=== PATIENT | male | born 1950 | race Caucasian/White ===

== ENCOUNTER 2020-01-23 23:37 | Inpatient (IN) | payer MEDICARE ==
[2020-01-24 00:19] LABS: INR-International Normal Ratio 1.2; Prothrombin Time 15.4 sec (12.0-14.7)
[2020-01-24 00:22] LABS: Hemoglobin 5.4 g/dL (14.0-18.0); Mean Corpuscular HGB CONC 31.1 g/dL (32.0-36.0); Mean Corpuscular Hemoglobin 30.4 pg (27.0-31.0); Mean Corpuscular Volume 97.7 fL (78.0-98.0); Mean Platelet Volume 6.6 fL (7.4-10.4); Platelet Count 506 thou/uL (130-400); RBC Distribution Width 17.3 % (11.5-14.5); Red Blood Cell (RBC) Count 1.76 mill/uL (4.70-6.10)
[2020-01-24 00:34] LABS: ALT (SGPT) 13 U/L (8-55); AST (SGOT) 12 U/L (5-34); Albumin 2.5 g/dL (3.4-4.8); Alkaline Phosphatase 95 U/L (40-110); Anion Gap 18 mmol/L (10-20); Anisocytosis SLIGHT = 6-15 cells (100X) (0-5/hpf); BUN (Urea Nitrogen) 16 mg/dL (8.4-25.7); Band 2 % (5-11); Bilirubin, Total 0.2 mg/dL (0.2-1.2); Calc. Creatinine Clearance 0 mL/min (70-130); Calcium 7.9 mg/dL (7.8-10.44); Carbon Dioxide 15 mmol/L (23-31); Chloride 103 mmol/L (98-107); Eosinophils 1 % (0-10); Estimated GFR-MDRD 69; Globulin 2.5 g/dL (2.4-3.5); Glucose 216 mg/dL (83-110); Lipase 38 U/L (8-78); Lymphocytes 22 % (21-51); MDiff Complete? YES; Macrocytosis SLIGHT = 6-15 cells (100X) (0-5/hpf); Metamyelocyte 1 % (0-0); Monocytes 5 % (0-10); Neutrophil 69 % (42-75); Nucleated RBC 1 % (0); Platelet Morphology Comment Appears Increased; Polychromasia MODERATE = 3-4 cells (100X) (0-2/hpf); Potassium 3.4 mmol/L (3.5-5.1); Sodium 133 mmol/L (136-145); White Blood Cell (WBC) Count 13.3 thou/uL (4.8-10.8)
[2020-01-24] MEDS ORDERED: Pantoprazole 40 MG VIAL ONE (01:32)
[2020-01-24 02:49] VITALS: BMI 29.4
[2020-01-24] MEDS ORDERED: Ondansetron ODT 4 MG TAB PO PRN (03:19)
[2020-01-24] MEDS ORDERED: Ondansetron PF 4 MG/2 ML Vial IVP PRN (03:19)
[2020-01-24] MEDS ORDERED: Sodium Chloride 0.9% (PF) 10 ML VIAL FS PRN (03:27)
--- NOTE | 2020-01-24 03:35 | PDOC.HHP ---
Hospitalist HPI - History of Present Illness gi bleeding History of Present Illness: Case of an 69y/o male with pmxh of htn and hyperlipidemia who comes to hospital due to gi bleeding. patient refers he was on his usual state o health until 2-3 weeks ago when he started to notice some black stools. symptoms kept progressing until today when started to feel lightheaded and generalize weakness for which he came to hospital to be evaluated. here patient had visible melena on PE and a hg of 5 for which hospitaloist was consulted for further evaluation and management. patient denies chest pain, palpitations or diaphoresis does refers some occasional nonradiating epigastric discomfort. Hospitalist ROS - Review of Systems All other systems reviewed; all pertinent +/- noted in HPI/Subj Hospitalist History - Past Medical History Cardiac: reports: Hyperlipidemia - Past Surgical History Past Surgical History: reports: no pertinent history - Family History Family History: reports: hyperlipidemia, hypertension - Social History Tobacco Type: snuff Alcohol: reports: Heavy Drugs: reports: none - Exam General Appearance: awake alert Eye: PERRL, anicteric sclera ENT: normocephalic atraumatic, no oropharyngeal lesions Neck: supple, symmetric, no JVD, no thyromegaly Heart: RRR, no murmur, no gallops, no rubs Respiratory: CTAB, no wheezes, no rales, no ronchi Gastrointestinal: soft, non-tender, non-distended, normal bowel sounds Extremities: no cyanosis, no clubbing, no edema Skin: normal turgor, no lesions, no rashes Neurological: cranial nerve grossly intact, normal sensation to touch, no weakness Musculoskeletal: normal tone, normal strength, no muscle wasting Psychiatric: normal affect, normal behavior, A&O x 3 Hospitalist Results - Labs Result Diagrams: 01/23/20 23:57 01/23/20 23:57 Lab results: WBC 13.3 thou/uL (4.8-10.8) H 01/23/20 23:57 Hgb 5.4 g/dL (14.0-18.0) L* 01/23/20 23:57 Hct 17.2 % (42.0-52.0) L 01/23/20 23:57 MCV 97.7 fL (78.0-98.0) 01/23/20 23:57 Plt Count 506 thou/uL (130-400) H 01/23/20 23:57 Band Neuts % (Manual) 2 % (5-11) L 01/23/20 23:57 Sodium 133 mmol/L (136-145) L 01/23/20 23:57 Potassium 3.4 mmol/L (3.5-5.1) L 01/23/20 23:57 Chloride 103 mmol/L (98-107) 01/23/20 23:57 Carbon Dioxide 15 mmol/L (23-31) L 01/23/20 23:57 BUN 16 mg/dL (8.4-25.7) 01/23/20 23:57 Creatinine 1.06 mg/dL (0.7-1.3) 01/23/20 23:57 Glucose 216 mg/dL (83-110) H 01/23/20 23:57 Calcium 7.9 mg/dL (7.8-10.44) 01/23/20 23:57 Total Bilirubin 0.2 mg/dL (0.2-1.2) 01/23/20 23:57 AST 12 U/L (5-34) 01/23/20 23:57 ALT 13 U/L (8-55) 01/23/20 23:57 Alkaline Phosphatase 95 U/L (40-110) 01/23/20 23:57 Troponin I 0.020 ng/mL (< 0.028) 01/23/20 23:57 Serum Total Protein 5.0 g/dL (5.8-8.1) L 01/23/20 23:57 Albumin 2.5 g/dL (3.4-4.8) L 01/23/20 23:57 Lipase 38 U/L (8-78) 01/23/20 23:57 - Radiology Interpretation CT scan - abdomen Status: report reviewed by me (no acute pathology) Hospitalist H&P A/P - Problem (1) GI bleeding Code(s): K92.2 - GASTROINTESTINAL HEMORRHAGE, UNSPECIFIED Status: Acute (2) HTN (hypertension) Code(s): I10 - ESSENTIAL (PRIMARY) HYPERTENSION Status: Acute (3) Hyperlipidemia Code(s): E78.5 - HYPERLIPIDEMIA, UNSPECIFIED Status: Acute (4) Anemia due to blood loss Code(s): D50.0 - IRON DEFICIENCY ANEMIA SECONDARY TO BLOOD LOSS (CHRONIC) Status: Acute (5) Alcohol abuse Code(s): F10.10 - ALCOHOL ABUSE, UNCOMPLICATED Status: Acute - Plan Plan: gi bleeding - currently being transfused 2 prcs, will place npo and start po protonix 40 q 12. gi was consulted anemia - secondary to gi bleed, will transfue 2 prbc and check hg q 6hr alcohol abuse - banana bag, ativan prn for withdrawal htn - holding medication for now due low hg afib on rvr - pt arrived in afib in rvr, this is of new onset, likely secondary to blood loss and low hg, during my evaluation s/p transfusion pulse was in the 90s, none the less will run troponins, get 2d echo and monitor in telemetry
[2020-01-24] MEDS ORDERED: Lorazepam 2 MG/ML VIAL SLOW IVP PRN (03:44)
[2020-01-24] MEDS: Multivitamins, Adult 10 ML, Folic Acid 1 MG, Thiamine HCl 100 MG in Dextrose 5 %-0.45 %... IV SCH (06:15)
--- NOTE | 2020-01-24 08:03 | CT ---
PRELIMINARY REPORT/[facility]/EMERGENCY AFTER HOURS PROCEDURE EXAM: CT Abdomen and Pelvis with Intravenous Contrast CLINICAL HISTORY: Edin presents to ED via EMS with c/o bleeding from rectum for 2-3 weeks with associated nausea and int ermittent upper abd pain. Pt reports he fell 1 week ago. Pt reports he is a daily drinker, but has never gone through withdraws. Pt reports taking Tylenol for pain. Pt reports he hasn't seen a Dr in 8 months. Pt denies hx of afib and diabetes. Pt reports hcx of HTN. TECHNIQUE: Axial computed tomography images of the abdomen and pelvis with intravenous contrast. CONTRAST: With; ISOVUE 370,100mL COMPARISON: None provided. FINDINGS: LUNG BASES: No basilar airspace consolidation or pleural effusion. LIVER: Unremarkable. GALLBLADDER AND BILE DUCTS: Unremarkable. No calcified stone. No ductal dilation. PANCREAS: Unremarkable. SPLEEN: Unremarkable. ADRENAL GLANDS: Unremarkable. KIDNEYS, URETERS, AND BLADDER: Unremarkable. No hydronephrosis or nephrolithiasis. No ureteral or bladder calculi. STOMACH AND BOWEL: No obstruction. No wall thickening. No CT evidence of colitis or acute diverticulitis. APPENDIX: No CT evidence for appendicitis. PERITONEUM: No free fluid. No free air. LYMPH NODES: No lymphadenopathy. Nonspecific prominent lymph nodes conglomerate measuring 3.6 x 2.7 cm anterior t o the descending duodenum, axial series 2, image 24?26 REPRODUCTIVE: Unremarkable as visualized. VASCULATURE: No aortic aneurysm. BONES: No fracture or suspicious osseous abnormality. ABDOMINAL WALL AND SOFT TISSUES: Unremarkable. IMPRESSION: No acute intra-abdominal or pelvic abnormality. Nonspecific prominent lymph node anterior to the descending duodenum measuring 3.6 x 2.7 cm. Close f ollow-up imaging recommended to document stability. ELECTRONICALLY SIGNED BY: Ron Goins DO January 24, 2020 1:11:54 AM CDT This report is intended for review by the ordering physician only, in accordance of law. If you recei ve this report in error, please call [facility] at [phone]. FINAL REPORT EXAM: CT ABDOMEN AND PELVIS HISTORY: Rectal bleeding x2-3 weeks. Associated nausea and intermittent abdominal pain. COMPARISON: None. Procedure: Multiple contiguous axial images were obtained and a CT of the abdomen and pelvis with IV contrast. C oronal reformats were performed. FINDINGS: Lower Chest: Chronic changes the lung bases Vessels: Normal caliber aorta. There is atherosclerosis Heart: Cannot be assessed as it is not included on this exam Abdomen: Portal vein:Patent Gallbladder: Contracted. Liver: within normal limits. Pancreas: within normal limits. Spleen: within normal limits. Adrenals: within normal limits. Kidneys: Symmetric enhancement. No obstructive uropathy. Peritoneum: There is stranding of the abdominal mesentery at the level of the gastric antrum. Small p ockets of extraluminal air cannot be entirely excluded. There are mildly enlarged mesenteric lymph nodes. Manager Psychology lymph node measures 1.8 x 1.2 cm. Bowel: Limited evaluation due to the lack of oral contrast administration. No evidence of small bowel bowel obstruction. Ileocecal junction is unremarkable. Normal caliber appendix. Scattered fecal material in a nondistended, nondilated colon. Mesentery and Retroperitoneum: Epigastric lymphadenopathy as described above. Additional lymphadenopa thy along the gastrohepatic ligament is noted, measuring 1.1 x 1.0 cm. Abdominal Wall: within normal limits. Pelvis: Reproductive Organs: Reproductive organs are unremarkable. Pelvis: No mass, lymphadenopathy, free air or free fluid. Bladder: within normal limits. Bones: within normal limits. IMPRESSION: 1. This report is in disagreement with initial report by [facility]. 2. As stated in the initial report, there are lymph nodes in the epigastric region. However, the init ial report does not talk about the inflammatory changes around the gastric antrum and duodenum. Initial report does not talk about focus of probable extraluminal air and does not mention the possib ility of a contained perforation secondary to peptic ulcer disease. Results of study conveyed to Dr. Reynolds on 01/24/2020 at 8:03 AM Code CR Transcribed Date/Time: 01/24/2020 8:12 AM
[2020-01-24 08:08] LABS: Troponin I 0.036 ng/mL (< 0.028)
[2020-01-24 08:10] LABS: ALT (SGPT) 13 U/L (8-55); AST (SGOT) 13 U/L (5-34); Albumin 2.6 g/dL (3.4-4.8); Alkaline Phosphatase 91 U/L (40-110); Anion Gap 12 mmol/L (10-20); BUN (Urea Nitrogen) 18 mg/dL (8.4-25.7); Bilirubin, Total 0.6 mg/dL (0.2-1.2); Calc. Creatinine Clearance 97 mL/min (70-130); Calcium 7.5 mg/dL (7.8-10.44); Carbon Dioxide 20 mmol/L (23-31); Chloride 106 mmol/L (98-107); Estimated GFR-MDRD Greater than 90; Globulin 2.5 g/dL (2.4-3.5); Glucose 100 mg/dL (83-110); Potassium 3.8 mmol/L (3.5-5.1); Protein, Total 5.1 g/dL (5.8-8.1); Sodium 134 mmol/L (136-145)
[2020-01-24] MEDS: Pantoprazole 40 MG VIAL IVP SCH ×2 (08:10→20:06)
[2020-01-24 08:27] LABS: Anisocytosis SLIGHT = 6-15 cells (100X) (0-5/hpf); Band 6 % (5-11); Hemoglobin 7.6 g/dL (14.0-18.0); Lymphocytes 16 % (21-51); MDiff Complete? YES; Mean Corpuscular HGB CONC 32.6 g/dL (32.0-36.0); Mean Corpuscular Hemoglobin 30.9 pg (27.0-31.0); Mean Corpuscular Volume 94.6 fL (78.0-98.0); Mean Platelet Volume 6.5 fL (7.4-10.4); Metamyelocyte 2 % (0-0); Monocytes 5 % (0-10); Neutrophil 71 % (42-75); Platelet Count 383 thou/uL (130-400); Polychromasia SLIGHT = 2-3 cells (100X) (0-2/hpf); RBC Distribution Width 17.3 % (11.5-14.5); Red Blood Cell (RBC) Count 2.46 mill/uL (4.70-6.10); White Blood Cell (WBC) Count 13.8 thou/uL (4.8-10.8)
--- NOTE | 2020-01-24 10:51 | CON ---
DATE OF CONSULTATION: 01/24/2020 CHIEF COMPLAINT: Anemia, perforated duodenum. HISTORY OF PRESENT ILLNESS: This is a 69-year-old male admitted to the medical service overnight with a history of anemia and atrial fibrillation. He has been hemodynamically stable. He received 2 units of blood overnight. The patient notes a history of black tarry stools for the last few weeks, not associated with pain, nausea, vomiting, weight loss. He has not had a bowel movement now for 2 to 3 days. Denies previous known history of peptic ulcer disease. He has not had upper endoscopy, that he can remember. He takes occasional Tylenol, but no other NSAIDs. He is a daily drinker. No smoking. PAST MEDICAL HISTORY: Includes hyperlipidemia. SURGICAL HISTORY: None. ALLERGIES: NO KNOWN DRUG ALLERGIES. SOCIAL HISTORY: He dips snuff and drinks daily. No other drugs. REVIEW OF SYSTEMS: Ten-system review of systems is otherwise negative unless described above. No family history of GI malignancy or anesthetic-related complication. PHYSICAL EXAMINATION: VITAL SIGNS: Blood pressure is 126/74, pulse 90, respirations 16. He is afebrile. HEENT: Sclerae are anicteric. Oropharynx clear. NECK: No lymphadenopathy. CHEST: Clear. HEART: Regular rate. ABDOMEN: Soft, nontender, nondistended. No pain in the right upper quadrant or epigastric area. No guarding or rebound. EXTREMITIES: No ischemia or edema to extremities. LABORATORY DATA: White cell count today is 13; hemoglobin is 7.6, up from 5.4; platelet count is 383. Sodium 134, potassium 3.8, creatinine 0.82, albumin is low at 2.6. DIAGNOSTIC DATA: CT scan discussed with Dr. Ford, which shows a question of localized perforation. There is no free fluid. No intraperitoneal free fluid. No intraperitoneal free air. ASSESSMENT: Symptoms of bleeding peptic ulcer, stable, appears to have stopped with a CT scan without oral contrast showing question of localized perforation. PLAN: Options would be to repeat the scan with oral contrast versus observation plus or minus endoscopy, given that he has no peritoneal signs and no abdominal symptoms and his abdomen is soft. I would side more toward not repeating the scan for now unless he starts to develop more pain. I think he likely just has deep-seated duodenal ulcer. Discussed with Dr. Felder, probably will need upper endoscopy at some point. We will follow with you. Job ID: [id number]
[2020-01-24] MEDS ORDERED: PROPOFOL 200 MG/20 ML VIAL ONE (12:12)
[2020-01-24] MEDS ORDERED: EPINEPHrine 1 MG/10 ML Abboject SYRINGE ONE (12:12)
[2020-01-24 12:14] LABS: Hemoglobin 7.2 g/dL (14.0-18.0)
--- NOTE | 2020-01-24 14:35 | CON ---
DATE OF CONSULTATION: 01/24/2020 REASON FOR CONSULT: GI bleed. HISTORY OF PRESENT ILLNESS: Mr. Calix is a pleasant 69-year-old who has had a melena for about 2 to 3 weeks, but yesterday he ate a tuna fish and wheat bread sandwich and became ill and the patient had a really big melenic stool and called EMS. Apparently about a week ago, he fell and hit his ribs on the left side. He denies any weight loss. Denies any fever. Denies any shortness of breath or chest pain. He has been having about one or two bowel movement today or every other day. Here in the emergency room, he had a CAT scan that showed inflammation and lymphadenopathy around the antrum and duodenum and possibly some free air. He has been evaluated by Dr. Reynolds. He did not feel that he had a surgical abdomen and was not planning on a repeat CAT scan or surgery at this time. I talked with the patient. He used to see Dr. Gutierrez . He was treated for hypertension and hyperlipidemia. He still takes antihypertensive, but not the lipid medicine. He has never been hospitalized. PAST SURGICAL HISTORY: None. SOCIAL HISTORY: He drinks a beer a day, but not more than that. He has never had withdrawals. He dips, but does not smoke. He does not use drugs. FAMILY HISTORY: Noncontributory. No history of colorectal cancer or stomach cancers. REVIEW OF SYSTEMS: Negative for dysphagia, odynophagia, reflux, headaches, chest pain, shortness of breath, dyspnea on exertion, abdominal pain prior to this, or bleeding prior to this. He has had no prior endoscopies. No edema. No rashes, myalgias, or arthralgias. MEDICATIONS: At home: 1. He has been taking some Tums or Rolaids at times. 2. Blood pressure pill. 3. He denies taking NSAIDs. 4. Occasionally, he takes Tylenol. 5. Hydralazine. 6. Lipitor. 7. Amlodipine. Presently: 1. Ativan p.r.n. 2. Banana bag daily. 3. Zofran. 4. Protonix 40 IV q.12. 5. He has received 2 units of blood here. PHYSICAL EXAMINATION: VITAL SIGNS: Temperature 97, pulse 81, blood pressure is 124/68. GENERAL: He is resting in bed. He is alert, oriented to person, place, time. HEENT: Oropharynx, no lesions. NECK: Supple. No adenopathy. LUNGS: Clear. HEART: Regular without murmurs. ABDOMEN: Protuberant. There is no shifting dullness or fluid wave. There is no palpable hepatosplenomegaly. He has mild epigastric tenderness, but no rebound or guarding. RECTAL: Exam was not performed. EXTREMITIES: Reveal no clubbing, cyanosis, or edema. LABORATORY STUDIES: Hemoglobin 7.6 from 5.4 on admission last night, white count 13, platelet count 388. INR is 1.2. Sodium 134, potassium 3.8, BUN and creatinine are 18 and 0.8. AST and ALT are 13 and 13, alkaline phosphatase 91. Troponin was 0.036 and 0.020. Protein 5.1, albumin 2.6. Lipase was 38 on admission. CAT scan films reviewed with Dr. Reynolds. ASSESSMENT: This is a 69-year-old gentleman, who has been having melena for 3 weeks, came in severely anemic. He was mildly hypertensive with pressures in the 90s on admission, but not tachycardic. Presently, he is stable. He has received 2 units of blood. He does have a CAT scan showing chronic inflammation in the antrum and duodenum. He may have a chronic ulcer. Lymphoma or malignancy be a concern as well. Microperforation, which had been walled off will be a concern as well. I have talked to Dr. Reynolds. He does not plan on moving to surgery based on his abdominal exam at this time. I do not think there would be much to be gained by repeating his CAT scan with contrast. He is hemodynamically stable now on PPIs. PLAN: We will proceed with EGD today. Continue PPIs and fluid resuscitation. Job ID: [id number]
[2020-01-24] MEDS ORDERED: Promethazine HCl 25 MG/ML VIAL IM PRN ×2 (15:48→15:56)
[2020-01-24] MEDS ORDERED: Ondansetron HCl/PF 4 MG/2 ML Vial IVP PRN ×2 (15:48→15:56)
[2020-01-24] MEDS ORDERED: Promethazine HCl 25 MG/ML VIAL SLOW IVP PRN (15:48)
--- NOTE | 2020-01-24 17:31 | PDOC.HOSPP ---
- Subjective Encounter Date: 01/24/20 Encounter Time: 17:30 Subjective: Mr. Calix was seen today in follow-up of GI bleed. He says he feels fine. He notes some mild upper abdominal discomfort, otherwise he feels ok. - Objective Vital Signs & Weight: Vital Signs (12 hours) Temp Pulse Resp BP Pulse Ox 01/24/20 16:55 97.5 F L 82 20 131/62 98 01/24/20 11:24 97.9 F 81 20 124/68 94 L 01/24/20 07:25 98.4 F 90 16 126/74 97 Weight Weight 182 lb 1.6 oz I&O: 01/23/20 01/24/20 01/25/20 06:59 06:59 06:59 Intake Total 350 551 Output Total 425 Balance 350 126 Result Diagrams: 01/24/20 17:07 01/24/20 07:23 Hospitalist ROS - Medication Medications: Active Medications Generic Name Dose Route Start Last Admin Trade Name Freq PRN Reason Stop Dose Admin Multivitamins 10 ml/ Folic 1,011.2 mls @ 70 mls/hr 01/24/20 04:00 01/24/20 06 :15 Acid 1 mg/ Thiamine HCl 100 mg IV 1,011.2 mls / Dextrose/Sodium Chloride 0400 LASHAY Administration Pantoprazole Sodium 40 mg 01/24/20 09:00 01/24/20 08:10 Protonix IVP 40 mg BID LASHAY Administration - Exam Eye: PERRL Heart: RRR, no murmur, no gallops, no rubs, normal peripheral pulses Respiratory: CTAB, no wheezes, no rales, no ronchi, normal chest expansion Gastrointestinal: soft, non-tender, non-distended, normal bowel sounds Extremities: no cyanosis, 1+ LE edema Hosp A/P (1) Duodenal ulcer hemorrhage Code(s): K26.4 - CHRONIC OR UNSPECIFIED DUODENAL ULCER WITH HEMORRHAGE Status : Acute (2) Acute blood loss anemia Code(s): D62 - ACUTE POSTHEMORRHAGIC ANEMIA Status: Acute (3) GI bleeding Code(s): K92.2 - GASTROINTESTINAL HEMORRHAGE, UNSPECIFIED Status: Acute (4) HTN (hypertension) Code(s): I10 - ESSENTIAL (PRIMARY) HYPERTENSION Status: Acute (5) Hyperlipidemia Code(s): E78.5 - HYPERLIPIDEMIA, UNSPECIFIED Status: Acute (6) Alcohol abuse Code(s): F10.10 - ALCOHOL ABUSE, UNCOMPLICATED Status: Chronic - Plan * Duodenal ulcer with acute blood loss anemia- EGD finding were noted * Continue Protonix IV and monitor his H&H * Alcohol Abuse- discussed with the patient- will continue the banana bag daily , and monitor for signs of withdrawal * ASE protocol * HTN- blood pressure is stable * Advance diet to clear liquid
--- NOTE | 2020-01-24 17:41 | OP ---
DATE OF PROCEDURE: 01/24/2020 PREPROCEDURE DIAGNOSES: 1. GI hemorrhage. 2. Abnormal CAT scan with suspected ulcer in the duodenal bulb. ANESTHESIA: TIVA. POSTPROCEDURE DIAGNOSES: 1. Large 2 cm ulcer white base with one visible vessel, nonbleeding with clot in the anterior wall of the duodenal bulb. 2. Injection with 5 mL 1:10,000 epinephrine heater probe cautery for control of bleeding. No active bleeding vessel ablated. 3. Biopsy of the gastric mucosa for H pylori taken. 4. Erosion at GE junction just below and erosive esophagitis, nonbleeding. RECOMMENDATIONS: Clear liquids, IV PPI q.12 hours. Serial H and H. PROCEDURE IN DETAIL: After the risks, benefits, and possible complications of endoscopy including perforation, reaction to medication, and aspiration, informed consent was obtained. The patient was brought to endoscopy suite, where he was sedated in gradual fashion. Once he was comfortable, a bite-block was placed inside the orifice. Endoscope was advanced through the esophagus, stomach, and second and third portions of the duodenum. The esophagus was notable for grade 3 reflux esophagitis with erosions, but no ulcerations. There was no evidence of Silverman's. There was a small erosion just below the GE junction, it appeared benign with no visible vessel or active bleeding. Retroflexed views revealed no abnormalities. The gastric body was notable for diffuse erythema consistent with gastritis. The antrum was slightly nodular. After interventions, biopsies were taken for H pylori from the antrum of stomach. The duodenal bulb was notable for a large 2 to 3 cm ulcer in anterior wall white base with one area of visible vessel and clot. This was washed away. Visible vessel was injected with 1:10,000 epinephrine and then cauterized with 7-Portuguese heater probe. The duodenum, the second and third portion were normal. The ampulla was normal. The scope was removed. The patient tolerated the procedure well. No complications. Job ID: [id number]
[2020-01-24] MEDS: Dextrose 5 % And 0.9 % NaCl 1,000 ML IV SCH (23:37)
[2020-01-25] MEDS: Multivitamins, Adult 10 ML, Folic Acid 1 MG, Thiamine HCl 100 MG in Dextrose 5 %-0.45 %... IV SCH (03:53)
[2020-01-25 06:06] LABS: Mean Corpuscular HGB CONC 31.7 g/dL (32.0-36.0); Mean Corpuscular Hemoglobin 30.6 pg (27.0-31.0); Mean Corpuscular Volume 96.5 fL (78.0-98.0); Mean Platelet Volume 6.9 fL (7.4-10.4); Platelet Count 360 thou/uL (130-400); RBC Distribution Width 17.9 % (11.5-14.5); Red Blood Cell (RBC) Count 2.28 mill/uL (4.70-6.10)
[2020-01-25 06:16] LABS: Band 4 % (5-11); Eosinophils 1 % (0-10); Lymphocytes 18 % (21-51); MDiff Complete? YES; Monocytes 4 % (0-10); Neutrophil 73 % (42-75); Nucleated RBC 1 % (0); White Blood Cell (WBC) Count 9.6 thou/uL (4.8-10.8)
[2020-01-25] MEDS: Pantoprazole 40 MG VIAL IVP SCH ×2 (09:11→20:42)
--- NOTE | 2020-01-25 09:54 | PDOC.HOSPP ---
- Subjective Encounter Date: 01/25/20 Encounter Time: 09:52 Subjective: Mr. Calix was seen today in follow-up of GI bleed. He does not have any new complaints. He says he has not had a Bowel movement today. - Objective Vital Signs & Weight: Vital Signs (12 hours) Temp Pulse Resp BP Pulse Ox 01/25/20 07:11 97.7 F 87 18 137/63 99 01/25/20 03:50 98.2 F 79 18 115/60 98 Weight Weight 186 lb 3.2 oz I&O: 01/24/20 01/25/20 01/26/20 06:59 06:59 06:59 Intake Total 350 1631 Output Total 850 Balance 350 781 Result Diagrams: 01/25/20 04:16 01/24/20 07:23 Hospitalist ROS - Medication Medications: Active Medications Generic Name Dose Route Start Last Admin Trade Name Freq PRN Reason Stop Dose Admin Multivitamins 10 ml/ Folic 1,011.2 mls @ 70 mls/hr 01/24/20 04:00 01/25/20 03 :53 Acid 1 mg/ Thiamine HCl 100 mg IV 1,011.2 mls / Dextrose/Sodium Chloride 0400 LASHAY Administration Dextrose/Sodium Chloride 1,000 mls @ 75 mls/hr 01/24/20 12:00 01/24/20 23:37 D5 0.9% Ns IV 1,000 mls .[id number] LASHAY Administration Pantoprazole Sodium 40 mg 01/24/20 09:00 01/25/20 09:11 Protonix IVP 40 mg BID LASHAY Administration - Exam Eye: PERRL Heart: RRR, no murmur, no gallops, no rubs, normal peripheral pulses Respiratory: CTAB, no wheezes, no rales, no ronchi, normal chest expansion Gastrointestinal: soft, non-tender, non-distended, normal bowel sounds, no palpable masses, no hepatomegaly Extremities: no cyanosis, no edema Hosp A/P (1) Duodenal ulcer hemorrhage Code(s): K26.4 - CHRONIC OR UNSPECIFIED DUODENAL ULCER WITH HEMORRHAGE Status : Acute (2) Acute blood loss anemia Code(s): D62 - ACUTE POSTHEMORRHAGIC ANEMIA Status: Acute (3) GI bleeding Code(s): K92.2 - GASTROINTESTINAL HEMORRHAGE, UNSPECIFIED Status: Acute (4) HTN (hypertension) Code(s): I10 - ESSENTIAL (PRIMARY) HYPERTENSION Status: Acute (5) Hyperlipidemia Code(s): E78.5 - HYPERLIPIDEMIA, UNSPECIFIED Status: Acute (6) Alcohol abuse Code(s): F10.10 - ALCOHOL ABUSE, UNCOMPLICATED Status: Chronic - Plan * Duodenal ulcer with acute blood loss anemia- Continue Protonix * His H&H is borderline- agree with IV iron infusion * Re-check his H&H in the AM * HTN- blood pressure is stable * Continue to advance diet as tolerated
[2020-01-25] MEDS: Dextrose 5 % And 0.9 % NaCl 1,000 ML IV SCH ×2 (11:24→23:45)
--- NOTE | 2020-01-25 13:00 | PRG ---
DATE OF SERVICE: 01/25/2020 SUBJECTIVE: Mr. Calix still feels weak. He was stumbled on the way to the bathroom earlier. He has had no bowel movement since admission. OBJECTIVE: VITAL SIGNS: Temperature is 98, pulse 78, blood pressure 136/71. LUNGS: Clear. HEART: Regular rate and rhythm without clicks, rubs or murmurs. ABDOMEN: Soft. Mild tender without rebound or guarding. LABORATORY DATA: White count 9, hemoglobin 7, platelet count 360. No BMP done today. Troponin was 0.036. ASSESSMENT: 1. Gastrointestinal bleed, chronic, secondary to duodenal ulcer, large, appears benign. Biopsy was taken for Helicobacter pylori. Cauterized. If no bleeding, could probably go home tomorrow. 2. Anemia, symptomatic. We will give him some IV iron. PLAN: 1. Advance to full liquid diet. 2. Continue IV PPIs today. 3. Stop serial H and H's. Job ID: [id number]
[2020-01-25] MEDS: Iron, Sodium Ferric Gluconate 250 MG in Sodium Chloride 0.9% 100 ML IVPB SCH (21:45)
[2020-01-26] MEDS: Multivitamins, Adult 10 ML, Folic Acid 1 MG, Thiamine HCl 100 MG in Dextrose 5 %-0.45 %... IV SCH (04:10)
[2020-01-26 05:41] LABS: #Basophils 0.1 thou/uL (0.0-0.2); #Eosinphils 0.2 thou/uL (0.0-0.7); #Lymphocytes 1.7 thou/uL (1.20-3.40); #Neutrophils 6.9 thou/uL (1.40-6.50); %Basophils 0.6 % (0.0-1.0); %Eosinophils 1.6 % (0.0-10.0); %Lymphocytes 17.4 % (21.0-51.0); %Monocytes 10.2 % (0.0-10.0); %Neutrophils 70.2 % (42.0-75.0); Hemoglobin 7.3 g/dL (14.0-18.0); Mean Corpuscular HGB CONC 31.8 g/dL (32.0-36.0); Mean Corpuscular Volume 97.7 fL (78.0-98.0); Mean Platelet Volume 6.3 fL (7.4-10.4); Platelet Count 393 thou/uL (130-400); RBC Distribution Width 17.6 % (11.5-14.5); Red Blood Cell (RBC) Count 2.36 mill/uL (4.70-6.10); White Blood Cell (WBC) Count 9.8 thou/uL (4.8-10.8)
[2020-01-26] MEDS: Pantoprazole 40 MG VIAL IVP SCH ×2 (08:14→21:17)
[2020-01-26] MEDS: Iron, Sodium Ferric Gluconate 250 MG in Sodium Chloride 0.9% 100 ML IVPB SCH (09:32)
--- NOTE | 2020-01-26 12:55 | PRG ---
DATE OF SERVICE: 01/26/2020 SUBJECTIVE: Mr. Calix feels a little bit better. He still gets weak. He gets up the iron infusion last night, seemed to have helped some. He has had no bleeding. He has had no bowel movements. He is on a full liquid diet. OBJECTIVE: VITAL SIGNS: Temperature is 98, pulse 85, and blood pressure 144/62. ABDOMEN: Protuberant, but soft and nontender. LABORATORY DATA: Hemoglobin 7.3 today. He had 2 units of blood on admission, raising his hemoglobin from 5.4 to 7, platelets 393. LABORATORY DATA: White count is 9.8, no other labs. ASSESSMENT: 1. Severe anemia, secondary to chronic upper gastrointestinal bleed from large duodenal ulcer. 2. Large duodenal ulcer, status post injection and cautery. Biopsies pending. 3. Anemia, status post IV iron. No active bleeding now. RECOMMENDATIONS: Advance diet. If he does well, I think he can go home on a b.i.d. PPI for 7 days, then daily PPI for 8 weeks and follow up with my office in 2 weeks. Bleeding precautions were discussed with the patient as well as anemia precautions. Getting up hot showers. He is going to get another dose of iron today. Job ID: [id number]
[2020-01-26] MEDS: Dextrose 5 % And 0.9 % NaCl 1,000 ML IV SCH (13:23)
[2020-01-26] MEDS ORDERED: Diltiazem 125 MG in Sodium Chloride 0.9% 100 ML IVPB SCH (13:30)
[2020-01-26 14:18] LABS: Thyroid Stimulating Hormone 1.7894 uIU/mL (0.35-4.94)
--- NOTE | 2020-01-26 14:25 | PDOC.HOSPP ---
- Subjective Encounter Date: 01/26/20 Encounter Time: 13:00 Subjective: Mr. Calix was seen as a follow up for GI bleed. GI has cleared him for discharge but he is now Afib with RVR intermittently and feeling dizzy when it occurs. He was rate controlled in Afib for the duration of his hospitalization but now keeps getting as high as 150s for 15 minutes at a time. - Objective Vital Signs & Weight: Vital Signs (12 hours) Temp Pulse Resp BP Pulse Ox 01/26/20 11:33 98.3 F 85 18 144/62 H 98 01/26/20 07:23 98.1 F 74 16 123/68 96 01/26/20 04:00 98.4 F 66 16 126/58 L 96 Weight Weight 191 lb 5 oz I&O: 01/25/20 01/26/20 01/27/20 06:59 06:59 06:59 Intake Total 1631 3525 Output Total 850 1650 Balance 781 1875 Result Diagrams: 01/26/20 05:02 01/24/20 07:23 EKG Reviewed by me: Yes Hospitalist ROS - Medication Medications: Active Medications Generic Name Dose Route Start Last Admin Trade Name Freq PRN Reason Stop Dose Admin Pantoprazole Sodium 40 mg 01/24/20 09:00 01/26/20 08:14 Protonix IVP 40 mg BID LASHAY Administration - Exam General Appearance: NAD, awake alert Eye: PERRL, anicteric sclera Neck: supple, symmetric, no JVD, no lymphadenopathy Heart: no murmur, no gallops, no rubs, irregular, diminshed peripheral pulses Respiratory: CTAB, no wheezes, no rales, no ronchi Gastrointestinal: soft, non-tender, non-distended, normal bowel sounds Extremities: no cyanosis Neurological: no focal deficits Psychiatric: normal affect, normal behavior Hosp A/P (1) A-fib Code(s): I48.91 - UNSPECIFIED ATRIAL FIBRILLATION Status: Acute (2) Duodenal ulcer hemorrhage Code(s): K26.4 - CHRONIC OR UNSPECIFIED DUODENAL ULCER WITH HEMORRHAGE Status : Acute (3) GI bleeding Code(s): K92.2 - GASTROINTESTINAL HEMORRHAGE, UNSPECIFIED Status: Acute (4) HTN (hypertension) Code(s): I10 - ESSENTIAL (PRIMARY) HYPERTENSION Status: Chronic (5) Hyperlipidemia Code(s): E78.5 - HYPERLIPIDEMIA, UNSPECIFIED Status: Chronic (6) Alcohol abuse Code(s): F10.10 - ALCOHOL ABUSE, UNCOMPLICATED Status: Chronic - Plan Afib: rate uncontrolled- cardizem gtt to start, EKG, cardiology consult, unable to anticoagulate due to GI bleed Duodenal ulcer with acute blood loss anemia: cleared by GI for discharge, continue protonix, received 2nd iron infusion HTN: controlled DM: controlled
--- NOTE | 2020-01-26 15:11 | PDOC.EVN ---
Event Note - Event Note Event Note: Mr. Calix was seen and examined and discussed with Citlaly DELGADO. I agree with her assessment. Me Fifi was feeling ok this morning. He notes some soreness in the left rib cage where he fell the other day. He has not seen any bleeding. He denies abdominal pain., on exam he notes some mild LUQ tenderness, no rebound or guarding. His H&H has been stable. Unfortunately he developed AFIB with RVR. Will hold discharge plans, and place him on a Cardizem drip to control his heart rate. Check TFT's. Echo has already been done. Will also consult Cardiology for new onset AFIB.
--- NOTE | 2020-01-26 16:10 | CON ---
DATE OF CONSULTATION: 01/26/2020 REASON FOR CONSULTATION: New onset atrial fibrillation. HISTORY OF PRESENT ILLNESS: Mr. Calix is a pleasant 69-year-old gentleman who recently presented with a GI bleed. He was found to have a large duodenal ulcer. He was ready for discharge when he developed atrial fibrillation with RVR. Prior to adding IV Cardizem, his heart rate has been in the 90s to 100s. He denies heart fluttering or palpitations as an outpatient. No previous history of atrial fibrillation. He does dip tobacco. No previous history of underlying coronary artery disease. Last echo dated 01/23/2020 with LVEF of 60% to 65%. The patient was in atrial fibrillation at that time. PAST MEDICAL HISTORY: Hyperlipidemia, tobacco abuse. PAST SURGICAL HISTORY: None. FAMILY HISTORY: Hyperlipidemia, hypertension. No history of CAD. SOCIAL HISTORY: As above. REVIEW OF SYSTEMS: A 10-point review of systems is reviewed as above, otherwise negative. HOME MEDICATIONS: 1. Hydralazine. 2. Atorvastatin. 3. Amlodipine. 4. Omeprazole. PHYSICAL EXAMINATION: GENERAL: Patient is a pleasant male who is in no acute distress. He does appear his stated age. He does appear somewhat disheveled. VITAL SIGNS: Blood pressure 129/63, pulse 91, and temperature 97.9. NEUROLOGIC: The patient is alert and oriented x3 with no focal neurologic deficits. HEENT: Sclerae without icterus. Mouth has moist mucous membranes with normal pallor. Poor dentition. NECK: No JVD. Carotid upstroke brisk. No bruits bilaterally. LUNGS: Clear to auscultation with unlabored respirations. BACK: No scoliosis or kyphosis. CARDIAC: Irregular heart rhythm. ABDOMEN: Soft, nontender, nondistended. No peritoneal signs present. No hepatosplenomegaly. No abnormal striae. EXTREMITIES: 2+ femoral and 2+ dorsalis pedis pulses. No cyanosis, clubbing, or edema. SKIN: No gross abnormalities. PERTINENT LABORATORY DATA: Hemoglobin 7.3, hematocrit 23. IMPRESSION: Atrial fibrillation. RECOMMENDATIONS: Mr. Calix appears to be in atrial fibrillation since 10/26/2019. At this point, we would recommend continued rate control. Given his current rate, I am unsure whether they need IV Cardizem. We would recommend p.o. Cardizem. Avoid anticoagulation therapy due to recent GI bleed. We will likely need to wait 2 to 3 weeks, and then will need to discuss with Dr. Felder on timing. His LVEF does appear within normal limits. His TSH also is 1.78. Job ID: [id number]
--- NOTE | 2020-01-26 16:16 | EKG ---
Test Reason : Blood Pressure : / mmHG Vent. Rate : 096 BPM Atrial Rate : 111 BPM P-R Int : 000 ms QRS Dur : 068 ms QT Int : 334 ms P-R-T Axes : 000 080 039 degrees QTc Int : 421 ms Atrial fibrillation Low voltage QRS Abnormal ECG No previous ECGs available Confirmed by ETIENNE FAUSTIN, DR. Gonzalez ([id number]) on 01/26/2020 4:16:07 PM Referred By: [facility] Confirmed By:DR. Lisa CLIFTON MD
[2020-01-26 17:23] LABS: Free T4 (Free Thyroxine) 0.92 ng/dL (0.70-1.48)
[2020-01-27] MEDS: Pantoprazole 40 MG VIAL IVP SCH (07:12)
--- NOTE | 2020-01-27 10:36 | PDOC.HOSPP ---
- Subjective Encounter Date: 01/27/20 Encounter Time: 09:45 Subjective: Mr Calix is seen as a follow up for his atrial fibrillation today. Cardiology saw him yesterday and began him on oral cardizem, he has tolerated well and has been AF 80-100s through the night and this morning. He feels he is ready to go home. No overnight events. - Objective Vital Signs & Weight: Vital Signs (12 hours) Temp Pulse Resp BP BP Pulse Ox 01/27/20 06:59 97.7 F 102 H 18 127/63 100 01/27/20 03:41 97.8 F 100 18 137/62 96 01/26/20 23:47 67 128/61 Weight Weight 195 lb 11.2 oz I&O: 01/26/20 01/27/20 01/28/20 06:59 06:59 06:59 Intake Total 3525 2450 Output Total 1650 850 Balance 1875 1600 Result Diagrams: 01/26/20 05:02 01/24/20 07:23 EKG Reviewed by me: Yes (AF 80s) Hospitalist ROS - Medication Medications: Active Medications Generic Name Dose Route Start Last Admin Trade Name Freq PRN Reason Stop Dose Admin Diltiazem HCl 30 mg 01/26/20 17:00 01/27/20 07:11 Cardizem PO 30 mg ACHS LASHAY Administration Pantoprazole Sodium 40 mg 01/24/20 09:00 01/27/20 07:12 Protonix IVP 40 mg BID LASHAY Administration Sodium Chloride 10 ml 01/24/20 03:27 01/26/20 21:17 Normal Saline Pf FS 10 ml PRN PRN Administration RECONSTITUTION - Exam General Appearance: NAD, awake alert Eye: PERRL, anicteric sclera Neck: supple, symmetric, no JVD, no lymphadenopathy Heart: no murmur, no gallops, no rubs, irregular Respiratory: CTAB, no wheezes, no rales, no ronchi Gastrointestinal: soft, non-tender, non-distended, normal bowel sounds Neurological: no focal deficits Psychiatric: normal affect, normal behavior Hosp A/P (1) A-fib Code(s): I48.91 - UNSPECIFIED ATRIAL FIBRILLATION Status: Acute (2) Duodenal ulcer hemorrhage Code(s): K26.4 - CHRONIC OR UNSPECIFIED DUODENAL ULCER WITH HEMORRHAGE Status : Acute (3) GI bleeding Code(s): K92.2 - GASTROINTESTINAL HEMORRHAGE, UNSPECIFIED Status: Acute (4) HTN (hypertension) Code(s): I10 - ESSENTIAL (PRIMARY) HYPERTENSION Status: Chronic (5) Hyperlipidemia Code(s): E78.5 - HYPERLIPIDEMIA, UNSPECIFIED Status: Chronic (6) Alcohol abuse Code(s): F10.10 - ALCOHOL ABUSE, UNCOMPLICATED Status: Chronic - Plan Afib: rate controlled 80's- PO cardizem, cardiology following Duodenal ulcer with acute blood loss anemia: cleared by GI for discharge, continue omeprazole once home per GI recommendations HTN: controlled DM: controlled
[2020-01-27 11:01] VITALS: BP 124/65; TEMP 98.1
--- NOTE | 2020-01-27 19:49 | DIS ---
DATE OF ADMISSION: 01/24/2020 DATE OF DISCHARGE: 01/27/2020 DISCHARGE DISPOSITION AND FOLLOWUP: The patient was discharged to his home. He was seen and examined on the day of discharge. Denies any new complaints. INPATIENT CONSULTS: GI and Cardiology. CLINICAL COURSE: The patient is a 69-year-old pleasant male with a history of hypertension, hyperlipidemia, and alcohol abuse. He came to the hospital for GI bleeding. He had some black stools at home and began to feel lightheaded and had generalized weakness. While in the ER, he was found to be in atrial fibrillation with RVR, which was assumed to be associated with acute blood loss and low hemoglobin. He received 2 units of packed red blood cells while in the ER. His labs were hemoglobin 5.4, hematocrit 17.2. GI was consulted for the patient and on 01/23 a colonoscopy was completed, where a biopsy was taken and sent to pathology. He then received two rounds of IV iron and his diet was advanced. On 01/25, the patient was cleared for discharge by GI, but prior to being discharged, the patient began to have signs of atrial fibrillation up to the 150s, generally he stayed around the 120s for about 15 minutes at a time and then would decrease down to the 90s, staying in atrial fibrillation the entire time. A Cardizem drip was started due to his high runs in the 130s and 140s. Cardiology was consulted and came to see the patient on that day. P.o. Cardizem was started for the patient and he became rate controlled, although still in atrial fibrillation. Cardizem drip was discontinued later that evening. The patient was rate controlled throughout the evening and was cleared to be discharged by Cardiology and to follow up with them in 3-4 weeks. Anticoagulation cannot be started due to his recent GI bleed. The patient's new medication was sent into the pharmacy. FINAL DIAGNOSES: 1. Atrial fibrillation. 2. Duodenal ulcer hemorrhage. 3. Gastrointestinal bleed. 4. Hypertension. 5. Hyperlipidemia. 6. Alcohol abuse. DISCHARGE MEDICATIONS: 1. Amlodipine 5 mg p.o. daily. 2. Lipitor 20 mg p.o. at bedtime. 3. Cardizem 180 mg p.o. daily. 4. Hydralazine 100 mg p.o. b.i.d. 5. Omeprazole 40 mg b.i.d. x1 week, then daily x8 weeks. DISCHARGE INSTRUCTIONS: The patient was highly encouraged to quit drinking alcohol and to follow up with his physicians including Cardiology and GI. The patient states that he does not have a primary care physician at this time due to him recently retiring. The patient was encouraged to obtain a new physician and was given different contact information for local MD groups who are near where he lives. Information over the new medications was also given to the patient. TIME SPENT: Total time coordinating the discharge of this patient was 35 minutes. Job ID: [id number] MTDD
== END 2020-01-27 15:40 | disposition home or self-care (01) | DRG 378 ==
LOC: ERS 23:37 → 2NO 01-24 01:27
PROVIDERS: ADMIT Internal Medicine; ATTEND Internal Medicine
PROC: 0W3P8ZZ Control Bleeding in Gastrointestinal Tract, Via Natural or Artificial Opening Endoscopic (ICD-10-PCS; principal; 2020-01-24)
PROC: 0DB78ZX Excision of Stomach, Pylorus, Via Natural or Artificial Opening Endoscopic, Diagnostic (ICD-10-PCS; 2020-01-24)
PROC: 30233N1 Transfusion of Nonautologous Red Blood Cells into Peripheral Vein, Percutaneous Approach (ICD-10-PCS; 2020-01-24)
PROC: HZ2ZZZZ Detoxification Services for Substance Abuse Treatment (ICD-10-PCS; 2020-01-24)
DX: K26.4 Chronic or unspecified duodenal ulcer with hemorrhage (principal); D62 Acute posthemorrhagic anemia; K22.10 Ulcer of esophagus without bleeding; I48.91 Unspecified atrial fibrillation; I10 Essential (primary) hypertension; E78.5 Hyperlipidemia, unspecified; F10.10 Alcohol abuse, uncomplicated; F17.220 Nicotine dependence, chewing tobacco, uncomplicated; K29.70 Gastritis, unspecified, without bleeding; Z88.0 Allergy status to penicillin; Z79.899 Other long term (current) drug therapy
CPT/HCPCS: 36415; 36430; 74177; 80053; 83690; 84439; 84443; 84484; 85025; 85610; 85730; 86850; 86900; 86901; 88305; 88312; 93005; 93010; 93306; 96361; 96374; C9113; J0171; J2704; J2916; J3411; J3490; J7042; P9016

== ENCOUNTER 2020-02-11 12:15 | Inpatient (IN) | payer MEDICARE ==
[2020-02-11 13:10] LABS: Hemoglobin 12.5 g/dL (14.0-18.0); Mean Corpuscular HGB CONC 30.8 g/dL (32.0-36.0); Mean Corpuscular Hemoglobin 29.1 pg (27.0-31.0); Mean Corpuscular Volume 94.7 fL (78.0-98.0); Mean Platelet Volume 6.5 fL (7.4-10.4); Platelet Count 506 thou/uL (130-400); RBC Distribution Width 15.4 % (11.5-14.5); Red Blood Cell (RBC) Count 4.29 mill/uL (4.70-6.10); White Blood Cell (WBC) Count 13.4 thou/uL (4.8-10.8)
[2020-02-11] MEDS ORDERED: Ondansetron PF 4 MG/2 ML Vial ONE (13:18)
[2020-02-11 13:29] LABS: Band 14 % (5-11); Hypochromia SLIGHT = 6-15 cells (100X) (0-5/hpf); Lymphocytes 5 % (21-51); MDiff Complete? YES; Monocytes 6 % (0-10); Neutrophil 72 % (42-75); Platelet Morphology Comment Appears Increased; Polychromasia SLIGHT = 2-3 cells (100X) (0-2/hpf); Reactive Lymphocytes 3 % (0-10); Target Cells SLIGHT = 2-5 cells (100X) (0-1/hpf)
[2020-02-11 13:36] LABS: ALT (SGPT) 10 U/L (8-55); AST (SGOT) 23 U/L (5-34); Albumin 3.3 g/dL (3.4-4.8); Alkaline Phosphatase 115 U/L (40-110); Anion Gap 17 mmol/L (10-20); BUN (Urea Nitrogen) 10 mg/dL (8.4-25.7); Bilirubin, Total 0.8 mg/dL (0.2-1.2); Calc. Creatinine Clearance 0 mL/min (70-130); Calcium 10.8 mg/dL (7.8-10.44); Carbon Dioxide 36 mmol/L (23-31); Chloride 88 mmol/L (98-107); Estimated GFR-MDRD 50; Globulin 3.9 g/dL (2.4-3.5); Glucose 144 mg/dL (83-110); Lipase 29 U/L (8-78); Protein, Total 7.2 g/dL (5.8-8.1); Sodium 138 mmol/L (136-145)
[2020-02-11 13:42] LABS: Potassium 2.9 mmol/L (3.5-5.1)
--- NOTE | 2020-02-11 14:01 | CT ---
EXAM: CT ABDOMEN AND PELVIS HISTORY: Peptic ulcer disease. Epigastric pain. Bleeding admitted for bleeding ulcers. COMPARISON: 01/24/2020 Procedure: Multiple contiguous axial images were obtained and a CT of the abdomen and pelvis with IV contrast. C oronal reformats were performed. FINDINGS: Lower Chest: Interval development of a left-sided pleural effusion Vessels: Atherosclerosis of a nonaneurysmal aorta Heart: Upper normal cardiac silhouette. No significant pericardial fluid Abdomen: Portal vein:Patent Gallbladder: No calcified gallstones. Normal caliber wall. Liver: Stable appearance of the liver. No enhancing masses. Pancreas: within normal limits. Spleen: Stable hypodensity involving the anterior aspect of the spleen. No perisplenic fluid or hemor rhage. Adrenals: within normal limits. Kidneys: Symmetric enhancement. No obstructive uropathy. Peritoneum: Persistent stranding of the mesentery adjacent to the gastric antrum as well as the first /second portion of the duodenum. Small amounts of fluid are noted. There are reactive upper normal lymph nodes. Small pockets of extraluminal air at the level of the gastric antrum. Bowel: Limited evaluation due to the lack of oral contrast administration. No evidence of small bowel obstruction. Ileocecal junction is unremarkable. Appendix is not appreciated. No obvious inflammation at the cecal apex. Scattered fecal material in a nondistended, nondilated colon. Mesentery and Retroperitoneum: No enlarged mesenteric or retroperitoneal lymph nodes. Abdominal Wall: within normal limits. Pelvis: Reproductive Organs: Reproductive organs are unremarkable. Pelvis: No mass, lymphadenopathy, free air or free fluid. Bladder: within normal limits. Bones: within normal limits. IMPRESSION: 1. Redemonstration of inflammatory changes in the epigastric region compatible with patient's history of perforated ulcer disease. There is evidence of fluid and stranding in the adjacent mesentery. Small pockets of extraluminal air are suspected which may represent a contained perforation. There ar e enlarged mesenteric lymph nodes, likely reactive. There is intramural hematoma with narrowing of the digestive tract.
[2020-02-11] MEDS ORDERED: Pantoprazole 40 MG VIAL ONE (14:21)
[2020-02-11] MEDS ORDERED: Potassium Chloride 20 MEQ TAB ONE (14:21)
[2020-02-11] MEDS ORDERED: Pantoprazole 80 MG, Admixture Fee 1 EACH in Sodium Chloride 0.9% 100 ML IVPB SCH (14:30)
[2020-02-11 15:30] LABS: Magnesium 1.6 mg/dL (1.6-2.6); Phosphorus 5.6 mg/dL (2.3-4.7)
[2020-02-11] MEDS ORDERED: Sodium Chloride 0.9% 1,000 ML IV SCH (18:01)
[2020-02-11] MEDS ORDERED: Lorazepam 2 MG/ML VIAL SLOW IVP PRN (18:10)
[2020-02-11] MEDS ORDERED: Lorazepam 1 MG TAB PO PRN (18:10)
[2020-02-11] MEDS ORDERED: Acetaminophen 325 MG TAB PO PRN (18:10)
[2020-02-11 18:31] VITALS: BMI 28.0
[2020-02-11] MEDS ORDERED: Potassium Chloride 20 MEQ TAB PO SCH (20:15)
[2020-02-11] MEDS: Sodium Chloride 0.9% 1,000 ML IV SCH (20:24)
[2020-02-11] MEDS: hydrALAZINE 25 MG TAB PO SCH (20:30)
--- NOTE | 2020-02-11 20:30 | HP ---
PRIMARY CARE PHYSICIAN: The patient currently does not have a primary care physician. CHIEF COMPLAINT: I am here with the same thing all over again. HISTORY OF PRESENT ILLNESS: Mr. Calix is a pleasant 69-year-old gentleman, who has a history of recent peptic ulcer disease, also recently diagnosed with atrial fibrillation. He says that he was feeling fine when he left the hospital a few weeks ago but in the last couple of days, he says that he has been feeling weak and he can barely stand up. He says it is more like he feels a bit off balance. He also says that he threw up a couple of times, two or three days ago in the past and has had some epigastric, he says burning off and on. He is very nonspecific with the time frame, but says anywhere from just a few minutes to 30-40 minutes at a time. He denies any hematemesis. He says he has been having dark stools up until just a few days ago when he says it has cleared up, but he attributed that to the medication that he has been on. He denies any chest pain, no palpitations, no fevers, no chills, no cough, no congestion, but generally just says that he is weak. He says he did go to follow up with the head of drama and saw him yesterday and he was started on Lasix and "another heart medicine." He also says he saw the wafer abrading machine tender as well. He says there were some talk about having him placed on a blood thinner, but he says he was not quite good with that. He has not yet established a primary care physician, however. Otherwise, the patient says when he is laying down, he feels fine but just when he gets up, he feels a bit off balance. REVIEW OF SYSTEMS: All systems were reviewed and are negative except for that mentioned in the history of present illness. PAST MEDICAL HISTORY: Significant for hyperlipidemia, peptic ulcer disease, atrial fibrillation, and hypertension. PAST SURGICAL HISTORY: No history of any surgical procedures other than the upper endoscopy. ALLERGIES: TO PENICILLIN, BUT HE SAYS HE DOES NOT KNOW WHAT IT CAUSES. FAMILY HISTORY: Includes hypertension and hyperlipidemia. SOCIAL HISTORY: He admits to chewing tobacco. He says he drinks about 6 ounces of beer daily and says on the weekends he will "split a six-pack but he will not be specific as to how many that is that he actually drinks." He is . He has one daughter. He has not designated a surrogate decision maker and would like to be a full code. CURRENT MEDICATIONS: Include: 1. Lasix 20 mg daily. 2. Metoprolol extended release 25 mg daily. 3. Olmesartan 20 mg daily. 4. Cardizem 180 mg daily. 5. Omeprazole 40 mg daily. 6. Norvasc 5 mg a day. PHYSICAL EXAMINATION: GENERAL: He is alert and oriented. He appears to be in no acute distress. He is well developed and well nourished, but he does appear a bit chronically ill and slightly disheveled. VITAL SIGNS: Blood pressure was 132/80, heart rate in the 70s, respiratory rate of 16, and he is afebrile. HEENT: Pupils are equal, round, and reactive. Extraocular muscles are intact. His sclerae are anicteric. Throat, he has poor dentition. Slightly dry mucous membranes, but no other oral lesions. NECK: There is no adenopathy. No bruits. LUNGS: Clear to auscultation. There is no wheezing, no rales, no rhonchi. CARDIOVASCULAR: He has a normal S1, S2. There is no S3 or S4. No murmurs, clicks, or rubs. ABDOMEN: Obese. It is soft. He did have some mild left lower quadrant tenderness but there is no rebound, no guarding. No evidence of any organomegaly. EXTREMITIES: He has mild 1+ edema. No calf tenderness. No joint effusions. No muscle wasting. NEUROLOGIC: Grossly intact. SKIN AND INTEGUMENT: He does have some mild mycotic nails. Chronic venous stasis changes LABORATORY DATA: Lab results: White blood cell count is 13.4, hemoglobin 12.5, hematocrit is 40.6, and platelet count is 506. Sodium 138, potassium 2.9, chloride is 88, CO2 is 36, BUN of 10, creatinine 1.39, glucose is 144, phosphorus 5.6. He had a CT scan of the abdomen and pelvis, which was very similar to the previous CT scan with no evidence of any new pathology. It was significant for some inflammatory changes in the epigastric region compatible with the patient's history of peptic ulcer disease and some mild extraluminal air. ASSESSMENT: This is a 69-year-old gentleman, who presents with generalized weakness with a recent history of peptic ulcer disease as well as atrial fibrillation. I suspect that the weakness is likely due to the hypokalemia and likely some mild volume depletion, as well as he appears to have some mild contraction alkalosis. The hypokalemia could be the result of Lasix administration plus I suspect that the patient may consume more alcohol than he readily admits and this could result in some nutritional deficiencies as well. The patient will therefore be admitted due to hypokalemia, started on IV fluids and replace his potassium and then re- evaluate it after potassium and fluid replacement to see whether or not the weakness has improved. 1. Atrial fibrillation, this is chronic. Currently, his rate is fairly well controlled. He has not been placed on anticoagulation due to the recent peptic ulcer. 2. Peptic ulcer disease, this appears to be stable. His hemoglobin is actually much improved from his discharge. It is currently 12.5 whereas when he was discharged from the hospital, it was 7.3. He does not give any symptoms of serious ongoing peptic ulcer disease as he is not having any hematemesis or dark stools. Therefore, we will continue the Protonix IV and once again re-evaluate tomorrow. He could have some underlying alcoholic gastritis. It was noted on CT scan that there was a hematoma with a narrowing effect in the intestines, however the patient does not endorse any symptoms of obstruction, and clinically is not obstructed- will monitor. 3. Chronic alcohol use/abuse. He has been gently counseled on the need to quit drinking. He does not seem to believe that he has a significant problem with drinking and we will continue to try to educate him on this. 4. Hypertension. We will need to reconcile and restart his home medications and further treatment will be based on the patient's clinical course. Job ID: [id number] [facility]
--- NOTE | 2020-02-11 21:37 | CON ---
DATE OF CONSULTATION: 02/11/2020 CHIEF COMPLAINT: Weakness. HISTORY OF PRESENT ILLNESS: Mr. Calix is a 69-year-old man, who was admitted to the hospital close to three weeks ago with a GI bleed. He was found to have a large duodenal ulcer by endoscopy by Dr. Felder with a visible vessel that was treated with cautery. CT scan suggested a contained perforation. He ultimately was discharged on 01/27/2020 to home on omeprazole 40 mg twice daily. He has a history of alcohol abuse, but states that he was drinking around one beer per day since he was discharged from the hospital. He is somewhat inconsistent with his history with multiple providers. Couple of days ago, he developed epigastric mild abdominal pain and he vomited some dark brown material last night and this afternoon. He has had no red blood in his emesis. He was taking some Pepto-Bismol but after he stopped the Pepto-Bismol, his stools turned back from black to brown. He was found by biopsies to be positive for H pylori and states that he did take the medications prescribed to him, but it is unsure if any of these were antibiotics. He does recall taking up to eight Pepto-Bismol per day and two of the omeprazole per day, which would be consistent with H pylori treatment. He is just unable to relay the other antibiotics. It sounds like he did take a full treatment for Helicobacter pylori. We will need to check a stool antigen in around a month to verify eradication. He came to the emergency room today because of severe weakness. Because of mild abdominal pain and recent known ulcer, he had a CT scan performed in the emergency room, which again shows inflammatory changes around the epigastric region with small pockets of extraluminal air again consistent with a contained perforation and noted on the previous CT. Intramural hematoma with narrowing of the lumen was also reported. PAST MEDICAL HISTORY: Significant for alcohol abuse and hyperlipidemia. PAST SURGICAL HISTORY: Recent endoscopy a couple weeks or so ago. FAMILY HISTORY: Negative for GI malignancies. SOCIAL HISTORY: He had been drinking heavily per his report, but more recently states he was drinking around one beer per day. He denies drug use. ALLERGIES: PENICILLIN. MEDICATIONS: Prior to admission: 1. Olmesartan. 2. Metoprolol. 3. Omeprazole. 4. Hydralazine. 5. Diltiazem. 6. Amlodipine. 7. Furosemide. REVIEW OF SYSTEMS: Negative x10 systems reviewed except as stated in the history of present illness. PHYSICAL EXAMINATION: VITAL SIGNS: Temperature 97.7, pulse 102, blood pressure 127/63. GENERAL: He is in no acute distress. Awake and alert. He is oriented x3, but he is a poor historian overall. HEENT: His eyes have no scleral icterus. Oropharynx is clear without lesions. No cervical or supraclavicular lymphadenopathy. LUNGS: Clear to auscultation bilaterally. HEART: Regular rate and rhythm without murmur. ABDOMEN: Soft. Minimal tenderness in the epigastric region without guarding. Bowel sounds are present. EXTREMITIES: No lower extremity edema. Cranial nerves are grossly intact. LABORATORY DATA: Sodium 138, potassium 2.9, chloride 88, CO2 of 36, BUN 10, creatinine 1.39, calcium 10.8, phosphorus 5.6, magnesium 1.6. Bilirubin 0.8, AST 23, ALT 10, alkaline phosphatase 115, albumin 3.3, lipase 29. IMPRESSION: 1. Duodenal ulcer with contained perforation. He came in due to severe weakness. He is extremely dehydrated on presentation and hemoconcentrated. His hemoglobin when he left the hospital on 01/26/2020 was 7.3 and now is 12.5. His white blood cell count and platelets are also elevated. I expect his hemoglobin will drop at least a couple points after IV fluids. He does not have signs of acute overt bleeding now. 2. Alcohol abuse. He has reports that he has only been drinking a beer per day since he left the hospital more recently, but he is a poor historian. 3. Acute renal failure and dehydration. 4. Recent Helicobacter pylori infection for which he was treated. He will require followup stool antigen in around a month to verify eradication. RECOMMENDATIONS: 1. Proton pump inhibitor IV. 2. We will try clear liquid diet. 3. Without overt bleeding now and given the ongoing signs of significant duodenal ulcer, would not expect that endoscopy will significantly change management coordinator. We will continue a proton pump inhibitor drip for now. His abdomen is nontender and he has minimal pain, and I do not see that he has a surgical indication now. There is an intramural hematoma that is compressing the lumen of the bowel that could interfere with advancing his diet. We will see how he does with clear liquids and give him IV fluids in the meantime. I will hold endoscopy for now. Job ID: [id number]
[2020-02-12] MEDS: Pantoprazole 80 MG in Sodium Chloride 0.9% 100 ML IVPB SCH ×2 (01:47→14:27)
[2020-02-12 06:23] LABS: Band 2 % (5-11); Eosinophils 1 % (0-10); Hemoglobin 9.7 g/dL (14.0-18.0); Lymphocytes 17 % (21-51); MDiff Complete? YES; Mean Corpuscular HGB CONC 29.5 g/dL (32.0-36.0); Mean Corpuscular Hemoglobin 28.4 pg (27.0-31.0); Mean Platelet Volume 6.3 fL (7.4-10.4); Monocytes 6 % (0-10); Neutrophil 74 % (42-75); Platelet Count 396 thou/uL (130-400); RBC Distribution Width 15.5 % (11.5-14.5); White Blood Cell (WBC) Count 15.6 thou/uL (4.8-10.8)
[2020-02-12 06:48] LABS: Anion Gap 12 mmol/L (10-20); BUN (Urea Nitrogen) 12 mg/dL (8.4-25.7); Calc. Creatinine Clearance 48 mL/min (70-130); Calcium 8.6 mg/dL (7.8-10.44); Carbon Dioxide 32 mmol/L (23-31); Chloride 97 mmol/L (98-107); Estimated GFR-MDRD 44; Glucose 81 mg/dL (83-110); Potassium 3.3 mmol/L (3.5-5.1); Sodium 138 mmol/L (136-145)
[2020-02-12] MEDS: Amlodipine 10 MG TAB PO SCH (08:18)
[2020-02-12] MEDS: Losartan 25 MG TAB PO SCH (08:19)
[2020-02-12] MEDS: Thiamine 100 MG TAB PO SCH (08:19)
[2020-02-12] MEDS: Folic Acid 1 MG TAB PO SCH (08:19)
[2020-02-12] MEDS: hydrALAZINE 25 MG TAB PO SCH ×2 (08:19→21:01)
[2020-02-12] MEDS: Sodium Chloride 0.9% 1,000 ML IV SCH ×2 (08:25→21:02)
[2020-02-12 08:54] LABS: Hemoglobin 10.9 g/dL (14.0-18.0)
[2020-02-12] MEDS ORDERED: Potassium Chloride 40 MEQ in Premix Bag 1 BAG IVPB SCH (09:00)
[2020-02-12] MEDS ORDERED: Prevnar 13-Val Conj/PF 0.5 ML SYRINGE IM ONE (09:00)
[2020-02-12] MEDS ORDERED: Potassium Chloride 40 MEQ in Sodium Chloride 0.9% 250 ML 250 ML IVPB SCH (09:30)
--- NOTE | 2020-02-12 17:17 | PDOC.HOSPP ---
- Subjective Encounter Date: 02/12/20 Subjective: Says he feels somewhat better today. Denies abdominal pain. - Objective Vital Signs & Weight: Vital Signs (12 hours) Temp Pulse Resp BP BP Pulse Ox 02/12/20 15:27 98.1 F 64 16 96/57 L 98 02/12/20 11:05 97.8 F 83 18 122/61 98 02/12/20 08:19 85 127/71 02/12/20 08:18 85 127/71 02/12/20 07:15 98.4 F 85 18 127/71 98 Weight Admit Weight 173 lb 11.2 oz Weight 173 lb 11.2 oz I&O: 02/11/20 02/12/20 02/13/20 06:59 06:59 06:59 Intake Total 220 Output Total 400 Balance -180 Result Diagrams: 02/12/20 08:46 02/12/20 05:15 Hospitalist ROS - Medication Medications: Active Medications Generic Name Dose Route Start Last Admin Trade Name Freq PRN Reason Stop Dose Admin Amlodipine Besylate 10 mg 02/12/20 09:00 02/12/20 08:18 Norvasc PO 10 mg DAILY LASHAY Administration Diltiazem HCl 180 mg 02/12/20 09:00 02/12/20 08:19 Cardizem Cd PO 180 mg DAILY LASHAY Administration Folic Acid 1 mg 02/12/20 09:00 02/12/20 08:19 Folvite PO 1 mg DAILY LASHAY Administration Hydralazine HCl 100 mg 02/11/20 21:00 02/12/20 08:19 Apresoline PO 100 mg BID LASHAY Administration Sodium Chloride 1,000 mls @ 70 mls/hr 02/11/20 18:15 02/12/20 08:25 Normal Saline 0.9% IV 1,000 mls .[id number] LASHAY Administration Pantoprazole Sodium 80 mg/ 100 mls @ 10 mls/hr 02/11/20 18:15 02/12/20 14:27 Sodium Chloride IVPB 100 mls INF LASHAY Administration Losartan Potassium 50 mg 02/12/20 09:00 02/12/20 08:19 Cozaar PO 50 mg DAILY LASHAY Administration Metoprolol Succinate 25 mg 02/12/20 09:00 02/12/20 08:19 Toprol Xl PO 25 mg DAILY LASHAY Administration Thiamine HCl 100 mg 02/12/20 09:00 02/12/20 08:19 Thiamine PO 100 mg DAILY LASHAY Administration - Exam General Appearance: NAD, awake alert Neck: supple, symmetric, no JVD, no thyromegaly, no lymphadenopathy, no carotid bruit Heart: RRR, no murmur, no gallops, no rubs, normal peripheral pulses Respiratory: CTAB, no wheezes, no rales, no ronchi, normal chest expansion, no tachypnea, normal percussion Gastrointestinal: soft, non-tender, non-distended, normal bowel sounds, no palpable masses, no hepatomegaly, no splenomegaly, no bruit Extremities: no cyanosis, no clubbing, no edema Skin: normal turgor Neurological: no focal deficits Musculoskeletal: normal tone Psychiatric: normal affect, normal behavior, A&O x 3 Hosp A/P (1) TAMMY (acute kidney injury) Code(s): N17.9 - ACUTE KIDNEY FAILURE, UNSPECIFIED Status: Acute (2) Dehydration Code(s): E86.0 - DEHYDRATION Status: Acute (3) Hypokalemia Code(s): E87.6 - HYPOKALEMIA Status: Acute (4) A-fib Code(s): I48.91 - UNSPECIFIED ATRIAL FIBRILLATION Status: Acute (5) Alcohol abuse Code(s): F10.10 - ALCOHOL ABUSE, UNCOMPLICATED Status: Chronic (6) HTN (hypertension) Code(s): I10 - ESSENTIAL (PRIMARY) HYPERTENSION Status: Chronic (7) Hyperlipidemia Code(s): E78.5 - HYPERLIPIDEMIA, UNSPECIFIED Status: Chronic (8) Duodenal ulcer Status: Acute - Plan TAMMY: Actually slightly worse on recheck. Continue IV hydration. Dehydration: IV fluids: Duodenal Ulcer: Per GI, patient appears to have taken appropriate treatment for the H pylori. Hypokalemia: Potassium still low. Additional repletion. Recheck in am. EtOH abuse: Thiamine, folate, prn bzd's.
--- NOTE | 2020-02-12 20:42 | PRG ---
DATE OF SERVICE: 02/12/2020 REASON FOR CONSULTATION: Duodenal ulceration, abdominal pain. SUBJECTIVE: The patient did not experience any acute events or problems overnight. Today, he states that his abdominal pain has almost completely resolved with only an aching sensation around the periumbilical region today. Otherwise, he denies any nausea, vomiting, fevers, chills, hematemesis, melena, hematochezia, dysphagia, or odynophagia. In talking with the patient, he is a relatively poor historian, but it seems that the patient had taken his H pylori regimen appropriately, and as such, confirmation of eradication should be performed in 4 to 6 weeks via stool antigen study. OBJECTIVE: VITAL SIGNS: Temperature 98.1, pulse 64, blood pressure 96/57, respiratory rate is 16, and saturating 98% on room air. GENERAL: The patient was lying in bed, in no acute distress. Alert and oriented x4. CARDIOVASCULAR: Regular rate and rhythm. RESPIRATORY: Clear to auscultation bilaterally. ABDOMEN: Normoactive bowel sounds. Soft, nondistended, mild tenderness to palpation in the right upper quadrant/midepigastric regions. EXTREMITIES: No cyanosis, clubbing, or edema. LABORATORY DATA: CBC with a white blood cell count of 15.6, hemoglobin 9.7 (recheck 10.9), hematocrit 32.7 (recheck 37.3), and platelets 396. Chemistry with a sodium of 138, potassium 3.3, chloride 97, CO2 of 32, BUN 12, creatinine 1.56, and glucose 81. IMAGING DATA: No current GI imaging is available for review. ASSESSMENT AND PLAN: The patient is a 69-year-old male with past medical history of hyperlipidemia, chronic alcohol abuse, and duodenal ulceration secondary to Helicobacter pylori infection, presenting for readmission secondary to increased abdominal pain. Duodenal ulcer with contained perforation/abdominal pain: The patient was admitted to the hospital approximately 2 to 3 weeks ago with increased abdominal pain and underwent EGD, which showed the presence of a large duodenal ulcer that was intervened upon with bipolar cauterization due to high-risk stigmata of bleeding. He was ultimately discharged to home after responding appropriately to further management, but while at home, he became increasingly dehydrated and had increasing abdominal pain that prompted him to come back to the hospital. During the course of this admission, the patient has had a mild drop in his hemoglobin and hematocrit, but is as expected with IV fluids running. He also states that with the PPI administration and IV fluid administration as well, he has had almost complete resolution of his admitting abdominal pain. Currently, he is tolerating the PPI drip well with no problems or events and is currently hungry for more substantial food. Recommendations: 1. We would continue the patient on a PPI drip for the next 24 hours in light of his recent duodenal ulceration and abdominal pain. We then transfer the patient to pantoprazole 40 mg oral twice daily until seen in the GI clinic. 2. We would continue to trend his hemoglobin and hematocrit and transfuse as necessary to maintain hemoglobin and hematocrit of 7/21. 3. Continue to monitor clinically for signs of active GI bleeding. 4. Pain control per Primary Team. 5. We would advance the patient's diet to more of a solid diet and assess for pain. If the patient is able to tolerate a more solid diet, he could be considered for discharge to home, and follow up in the GI Clinic. Helicobacter infection: The patient was recently admitted to the hospital with a duodenal ulceration showing biopsies that were consistent with Helicobacter pylori infection. He was subsequently placed on quadruple therapy and seems to have taken these medications appropriately at home. However, confirmation of eradication does need to be performed in approximately 4 to 6 weeks after completion of his antibiotics to confirm absence of the bacterium. This will be performed as an outpatient hopefully with the stool antigen study. Recommendations: Once the patient is discharged to the outpatient setting, we would have the patient follow up in the GI Clinic for Helicobacter pylori stool antigen test to confirm eradication of the bacterium. We will continue to follow. Please call with any questions. Job ID: [id number]
[2020-02-13] MEDS: Pantoprazole 80 MG in Sodium Chloride 0.9% 100 ML IVPB SCH ×2 (02:16→18:35)
[2020-02-13 08:40] LABS: Hemoglobin 9.2 g/dL (14.0-18.0)
[2020-02-13] MEDS: Losartan 25 MG TAB PO SCH (09:17)
[2020-02-13] MEDS: hydrALAZINE 25 MG TAB PO SCH ×2 (09:17→21:42)
[2020-02-13] MEDS: Thiamine 100 MG TAB PO SCH (09:18)
[2020-02-13] MEDS: Amlodipine 10 MG TAB PO SCH (09:18)
[2020-02-13] MEDS: Folic Acid 1 MG TAB PO SCH (09:18)
--- NOTE | 2020-02-13 12:47 | PRG ---
DATE OF SERVICE: 02/13/2020 REASON FOR CONSULTATION: Duodenal ulceration, abdominal pain. SUBJECTIVE: The patient did not experience any acute events or problems overnight, and states that his abdominal pain has almost completely resolved. He currently denies any nausea, vomiting, fevers, chills, hematemesis, melena, hematochezia, dysphagia, or odynophagia. With advancement of the patient's diet to a more solid diet yesterday, he has been able to tolerate well without any additional difficulty. OBJECTIVE: VITAL SIGNS: Temperature 97.4, pulse 58, blood pressure 110/63, respiratory rate 12, and saturating 99% on room air. GENERAL: The patient was lying in bed, in no acute distress. Alert and oriented x4. CARDIOVASCULAR: Regular rate and rhythm. RESPIRATORY: Clear to auscultation bilaterally. ABDOMEN: Normoactive bowel sounds. Soft, nondistended. Mild tenderness to palpation in the right upper quadrant and midepigastric region. EXTREMITIES: No cyanosis, clubbing, or edema. LABORATORY DATA: Hemoglobin of 9, hematocrit 30.7, with repeat hemoglobin and hematocrit of 9.2 and 30.4. Chemistry with a sodium of 138, potassium 3.3, chloride 97, CO2 of 32, BUN 12, creatinine 1.56, glucose 81. IMAGING DATA: No current GI imaging is available for review. ASSESSMENT AND PLAN: The patient is a 69-year-old male with past medical history of hyperlipidemia, chronic alcohol abuse, and duodenal ulceration secondary to Helicobacter pylori infection, presenting for readmission secondary to increased abdominal pain, now with decreasing hemoglobin and hematocrit. Duodenal ulcer with contained perforation/abdominal pain: The patient was initially admitted to the hospital approximately 2 to 3 weeks ago with increased abdominal pain and underwent EGD, which showed a large duodenal ulceration that showed high-risk stigmata of bleeding and ultimately intervened upon with bipolar cauterization. He was discharged to home, but in the interim, had increasing abdominal pain, which then prompted him to come back. Imaging on admission did not show any significant changes when compared to previous, and during the course of this admission, he has had resolution of his abdominal pain while on PPI IV. However, the patient has had a slowly downtrending hemoglobin and hematocrit during the course of this admission, which is worrisome for continued gastrointestinal bleeding related to this duodenal ulcer. RECOMMENDATIONS: 1. We would continue the patient on PPI, but can transfer to 40 mg IV b.i.d. I would continue this in twice daily format until seen in the GI Clinic as an outpatient. 2. Continue to trend his hemoglobin and hematocrit and transfuse as necessary to maintain hemoglobin and hematocrit of 7/21. 3. Continue to monitor clinically for signs of active GI bleeding. 4. If the patient continues to have a downtrending hemoglobin and hematocrit on tomorrow's lab studies, I would recommend an upper endoscopy for further evaluation of the duodenal ulceration to make sure there is no continued bleeding. If up-trending tomorrow, could be considered for discharge with followup in the GI Clinic. We will continue to follow. Please call with any questions. Job ID: [id number]
[2020-02-13] MEDS: Sodium Chloride 0.9% 1,000 ML IV SCH (12:53)
--- NOTE | 2020-02-13 18:39 | PDOC.HOSPP ---
- Subjective Encounter Date: 02/13/20 Subjective: Feels well. No complaints. No abdominal pain. - Objective Vital Signs & Weight: Vital Signs (12 hours) Temp Pulse Resp BP Pulse Ox 02/13/20 15:49 97.8 F 62 14 100/61 96 02/13/20 11:02 97.4 F L 58 L 12 110/63 99 02/13/20 09:18 78 02/13/20 09:17 78 02/13/20 07:26 97.9 F 78 16 127/66 99 Weight Admit Weight 173 lb 11.2 oz Weight 173 lb 11.2 oz I&O: 02/12/20 02/13/20 02/14/20 06:59 06:59 06:59 Intake Total 220 1440 1450 Output Total 400 700 0 Balance -524 401 8450 Result Diagrams: 02/13/20 08:32 02/12/20 05:15 Hospitalist ROS - Medication Medications: Active Medications Generic Name Dose Route Start Last Admin Trade Name Freq PRN Reason Stop Dose Admin Amlodipine Besylate 10 mg 02/12/20 09:00 02/13/20 09:18 Norvasc PO 10 mg DAILY LASHAY Administration Diltiazem HCl 180 mg 02/12/20 09:00 02/13/20 09:17 Cardizem Cd PO 180 mg DAILY LASHAY Administration Folic Acid 1 mg 02/12/20 09:00 02/13/20 09:18 Folvite PO 1 mg DAILY LASHAY Administration Hydralazine HCl 100 mg 02/11/20 21:00 02/13/20 09:17 Apresoline PO 100 mg BID LASHAY Administration Sodium Chloride 1,000 mls @ 70 mls/hr 02/11/20 18:15 02/13/20 12:53 Normal Saline 0.9% IV 1,000 mls .[id number] LASHAY Administration Pantoprazole Sodium 80 mg/ 100 mls @ 10 mls/hr 02/11/20 18:15 02/13/20 18:35 Sodium Chloride IVPB 100 mls INF LASHAY Administration Losartan Potassium 50 mg 02/12/20 09:00 02/13/20 09:17 Cozaar PO 50 mg DAILY LASHAY Administration Metoprolol Succinate 25 mg 02/12/20 09:00 02/13/20 09:18 Toprol Xl PO 25 mg DAILY LASHAY Administration Thiamine HCl 100 mg 02/12/20 09:00 02/13/20 09:18 Thiamine PO 100 mg DAILY LASHAY Administration - Exam General Appearance: NAD, awake alert Heart: RRR, no murmur, no gallops, no rubs, normal peripheral pulses Respiratory: CTAB, no wheezes, no rales, no ronchi, normal chest expansion, no tachypnea, normal percussion Gastrointestinal: soft, non-tender, non-distended, normal bowel sounds, no palpable masses, no hepatomegaly, no splenomegaly, no bruit Extremities: no cyanosis, no clubbing, no edema Skin: normal turgor Musculoskeletal: normal tone, normal strength, no muscle wasting Hosp A/P (1) TAMMY (acute kidney injury) Code(s): N17.9 - ACUTE KIDNEY FAILURE, UNSPECIFIED Status: Acute (2) Dehydration Code(s): E86.0 - DEHYDRATION Status: Acute (3) Hypokalemia Code(s): E87.6 - HYPOKALEMIA Status: Acute (4) A-fib Code(s): I48.91 - UNSPECIFIED ATRIAL FIBRILLATION Status: Acute (5) Alcohol abuse Code(s): F10.10 - ALCOHOL ABUSE, UNCOMPLICATED Status: Chronic (6) HTN (hypertension) Code(s): I10 - ESSENTIAL (PRIMARY) HYPERTENSION Status: Chronic (7) Hyperlipidemia Code(s): E78.5 - HYPERLIPIDEMIA, UNSPECIFIED Status: Chronic (8) Duodenal ulcer Status: Acute - Plan TAMMY: Actually slightly worse on recheck. Continue IV hydration. Recheck in am. Dehydration: IV fluids: Duodenal Ulcer: Per GI, patient appears to have taken appropriate treatment for the H pylori. Monitoring hgb. Variable, but down trending with hydration. If continues to decline, plan is for repeat endoscopy in am. Hypokalemia: Recheck in am. EtOH abuse: Thiamine, folate, prn bzd's.
[2020-02-14] MEDS: Pantoprazole 80 MG in Sodium Chloride 0.9% 100 ML IVPB SCH ×2 (04:04→20:18)
[2020-02-14] MEDS: Sodium Chloride 0.9% 1,000 ML IV SCH (04:08)
[2020-02-14 06:14] LABS: #Eosinphils 0.1 thou/uL (0.0-0.7); #Lymphocytes 1.5 thou/uL (1.20-3.40); #Monocytes 0.7 thou/uL (0.11-0.59); %Basophils 0.7 % (0.0-1.0); %Eosinophils 1.4 % (0.0-10.0); %Lymphocytes 24.2 % (21.0-51.0); %Monocytes 10.4 % (0.0-10.0); %Neutrophils 63.4 % (42.0-75.0); Hemoglobin 9.8 g/dL (14.0-18.0); Mean Corpuscular HGB CONC 31.2 g/dL (32.0-36.0); Mean Corpuscular Hemoglobin 29.8 pg (27.0-31.0); Mean Corpuscular Volume 95.5 fL (78.0-98.0); Mean Platelet Volume 6.5 fL (7.4-10.4); Platelet Count 349 thou/uL (130-400); RBC Distribution Width 15.3 % (11.5-14.5); White Blood Cell (WBC) Count 6.3 thou/uL (4.8-10.8)
[2020-02-14 06:32] LABS: Anion Gap 13 mmol/L (10-20); BUN (Urea Nitrogen) 18 mg/dL (8.4-25.7); Calc. Creatinine Clearance 54 mL/min (70-130); Calcium 7.9 mg/dL (7.8-10.44); Carbon Dioxide 24 mmol/L (23-31); Chloride 99 mmol/L (98-107); Estimated GFR-MDRD 50; Glucose 94 mg/dL (83-110); Potassium 3.7 mmol/L (3.5-5.1); Sodium 132 mmol/L (136-145)
[2020-02-14] MEDS: hydrALAZINE 25 MG TAB PO SCH ×2 (08:22→20:33)
[2020-02-14] MEDS: Thiamine 100 MG TAB PO SCH (08:22)
[2020-02-14] MEDS: Folic Acid 1 MG TAB PO SCH (08:22)
[2020-02-14] MEDS: Losartan 25 MG TAB PO SCH (08:22)
[2020-02-14] MEDS: Amlodipine 10 MG TAB PO SCH (08:23)
--- NOTE | 2020-02-14 16:43 | PDOC.HOSPP ---
- Subjective Subjective: Seen and examined. Patient denies abdominal pain, though he states he has had several black bowel movements. Patient's hemoglobin's have mildly up trended over the past two days. Time was given for questions, all answered in detail. - Objective Vital Signs & Weight: Vital Signs (12 hours) Temp Pulse Resp BP BP Pulse Ox 02/14/20 15:46 97.6 F 62 12 114/55 L 99 02/14/20 12:25 98.4 F 76 14 105/53 L 98 02/14/20 08:23 81 129/67 02/14/20 08:22 81 129/67 02/14/20 08:15 97.6 F 81 14 129/67 97 02/14/20 08:00 97 Weight Admit Weight 173 lb 11.2 oz Weight 173 lb 11.2 oz I&O: 02/13/20 02/14/20 02/15/20 06:59 06:59 06:59 Intake Total 1440 3427 Output Total 700 1000 Balance 740 2427 Result Diagrams: 02/14/20 06:02 02/14/20 06:02 Radiology Reviewed by me: Yes Hospitalist ROS - Review of Systems All other systems reviewed; all pertinent +/- noted in HPI/Subj - Medication Medications: Active Medications Generic Name Dose Route Start Last Admin Trade Name Julian PRN Reason Stop Dose Admin Amlodipine Besylate 10 mg 02/12/20 09:00 02/14/20 08:23 Norvasc PO 10 mg DAILY LASHAY Administration Diltiazem HCl 180 mg 02/12/20 09:00 02/14/20 08:22 Cardizem Cd PO 180 mg DAILY LASHAY Administration Folic Acid 1 mg 02/12/20 09:00 02/14/20 08:22 Folvite PO 1 mg DAILY LASHAY Administration Hydralazine HCl 100 mg 02/11/20 21:00 02/14/20 08:22 Apresoline PO 100 mg BID LASHAY Administration Sodium Chloride 1,000 mls @ 70 mls/hr 02/11/20 18:15 02/14/20 04:08 Normal Saline 0.9% IV Not Given .[id number] LASHAY Pantoprazole Sodium 80 mg/ 100 mls @ 10 mls/hr 02/11/20 18:15 02/14/20 04:04 Sodium Chloride IVPB 100 mls INF LASHAY Administration Losartan Potassium 50 mg 02/12/20 09:00 02/14/20 08:22 Cozaar PO 50 mg DAILY LASHAY Administration Metoprolol Succinate 25 mg 02/12/20 09:00 02/14/20 08:23 Toprol Xl PO 25 mg DAILY LASHAY Administration Thiamine HCl 100 mg 02/12/20 09:00 02/14/20 08:22 Thiamine PO 100 mg DAILY LASHAY Administration - Exam General Appearance: NAD, awake alert Eye: anicteric sclera ENT: normocephalic atraumatic, moist mucosa Neck: supple, symmetric, no lymphadenopathy Heart: no murmur, no gallops, no rubs Respiratory: CTAB, no wheezes, no rales, no ronchi, normal chest expansion Gastrointestinal: soft, non-tender, non-distended, no guarding, no rigidity Extremities: 2+ LE edema Skin: no lesions, no rashes Neurological: cranial nerve grossly intact, no focal deficits Musculoskeletal: generalized weakness Psychiatric: A&O x 3 Hosp A/P (1) TAMMY (acute kidney injury) Code(s): N17.9 - ACUTE KIDNEY FAILURE, UNSPECIFIED Status: Acute (2) Dehydration Code(s): E86.0 - DEHYDRATION Status: Acute (3) Duodenal ulcer Status: Acute (4) Hypokalemia Code(s): E87.6 - HYPOKALEMIA Status: Acute (5) A-fib Code(s): I48.91 - UNSPECIFIED ATRIAL FIBRILLATION Status: Acute (6) Acute blood loss anemia Code(s): D62 - ACUTE POSTHEMORRHAGIC ANEMIA Status: Acute (7) Anemia due to blood loss Code(s): D50.0 - IRON DEFICIENCY ANEMIA SECONDARY TO BLOOD LOSS (CHRONIC) Status: Acute (8) Duodenal ulcer hemorrhage Code(s): K26.4 - CHRONIC OR UNSPECIFIED DUODENAL ULCER WITH HEMORRHAGE Status : Acute (9) GI bleeding Code(s): K92.2 - GASTROINTESTINAL HEMORRHAGE, UNSPECIFIED Status: Acute (10) Alcohol abuse Code(s): F10.10 - ALCOHOL ABUSE, UNCOMPLICATED Status: Chronic (11) HTN (hypertension) Code(s): I10 - ESSENTIAL (PRIMARY) HYPERTENSION Status: Chronic (12) Hyperlipidemia Code(s): E78.5 - HYPERLIPIDEMIA, UNSPECIFIED Status: Chronic - Plan Plan: medical/surgical unit gastroenterology consultation, recommendations appreciated status post EGD with duodenal ulcer patient has had recurrent black stools over the past two days If significant re bleeding would require repeat endoscopy hemoglobin has mildly trended up over the past two days continue PPI BID chronic afib, anticoagulation contraindicated with GI bleeding continue other home medications as able blood pressure control blood sugar control G.I. prophylaxis DVT prophylaxis, chemical contraindicated with GI bleeding
--- NOTE | 2020-02-14 16:43 | PRG ---
DATE OF SERVICE: 02/14/2020 REASON FOR CONSULTATION: Duodenal ulceration, abdominal pain, anemia. SUBJECTIVE: The patient did not experience any acute events or problems overnight and his abdominal pain has completely resolved. However, he did have approximately 2 bowel movements today, the first of which was a larger black semi-solid bowel movement followed by a darker brown colored bowel movement. Otherwise, he denies any nausea, vomiting, fevers, chills, hematemesis, or hematochezia. He has been able to tolerate a solid diet without any difficulty in the meantime as well. OBJECTIVE: VITAL SIGNS: Temperature 97.6, pulse 62, blood pressure 114/55, respiratory rate 12, saturating 99% on room air. GENERAL: The patient is lying in bed, in no acute distress. Alert and oriented x4. CARDIOVASCULAR: Regular rate and rhythm. RESPIRATORY: Clear to auscultation bilaterally. ABDOMEN: Normoactive bowel sounds. Soft, nontender nondistended. EXTREMITIES: No cyanosis, clubbing, or edema. LABORATORY DATA: CBC with a white blood cell count of 6.3, hemoglobin 9.8, hematocrit 31.5, platelets 349. Chemistry with a sodium of 132, potassium 3.7, chloride 99, CO2 of 24, BUN 18, creatinine 1.41, glucose 94. IMAGING DATA: No current GI imaging is available for review. ASSESSMENT AND PLAN: The patient is a 69-year-old male with past medical history of hyperlipidemia, chronic alcohol abuse, and duodenal ulceration secondary to Helicobacter pylori infection, presenting with readmission for abdominal pain (resolved) as well as anemia. Recent duodenal ulceration with contained perforation/anemia. The patient was initially admitted to the hospital 2 to 3 weeks ago with increased abdominal pain and subsequently underwent EGD, which showed a large duodenal ulceration with high-risk stigmata bleeding that was intervened upon with bipolar cauterization. He was discharged to home but experienced increased abdominal pain in the outpatient setting and prompted readmission. During the course of this admission, he has had complete resolution of his abdominal pain, but has been having decreasing hemoglobin and hematocrit concerning for GI bleeding while on a PPI drip. With the appearance of melenic type stools earlier today, it is strongly concerning for the presence of an upper GI bleed and when coupled with his history of duodenal ulceration, is concerning for bleeding from the site. RECOMMENDATIONS: 1. We transfer the patient to pantoprazole 40 mg IV b.i.d. 2. Continue to trend his H and H and transfuse as necessary to maintain an H and H of 7/. 3. Continue to monitor clinically for signs of active GI bleeding. 4. We will plan for an upper endoscopy tomorrow for re-evaluation of the duodenal ulceration and control of hemorrhage if any high-risk stigmata of bleeding. 5. If the patient continues to have a downtrending H and H and a normal EGD tomorrow, we will consider a tagged red cell scan for further localization. 6. Please make the patient n.p.o. except for medications at midnight in anticipation of EGD tomorrow. 7. We will continue to follow. Please call with any questions. Job ID: [id number]
[2020-02-15] MEDS: Sodium Chloride 0.9% 1,000 ML IV SCH ×3 (04:46→12:52)
[2020-02-15] MEDS ORDERED: Ketamine 50 MG/ML (10ML VIAL) ONE (07:24)
[2020-02-15] MEDS ORDERED: PROPOFOL 20 ML ONE (07:24)
--- NOTE | 2020-02-15 09:03 | OP ---
DATE OF PROCEDURE: 02/15/2020 PROCEDURE PERFORMED: Esophagogastroduodenoscopy with control of hemorrhage. INDICATIONS FOR PROCEDURE: Recent history of large bleeding duodenal ulceration with downtrending H and H during this admission, midepigastric abdominal pain. DESCRIPTION OF PROCEDURE: After the risks and benefits of the procedure were explained to the patient including risks of bleeding, infection, perforation, reactions to anesthesia, aspiration, and/or pain, informed consent was obtained. The patient was then taken to the endoscopy suite, where he was placed in the left lateral decubitus position, followed by introduction of anesthesia via propofol and anesthesia support. Once adequate sedation was achieved, the standard gastroscope was introduced into the mouth with intubation of the esophagus, stomach, and the proximal small intestines with the findings listed below. The patient tolerated the procedure well with no immediate perioperative complications. Upon conclusion of the procedure, all equipment was removed from the patient and he was transferred to PACU in satisfactory condition. FINDINGS: Esophagus: Significant ulceration of the esophagus was seen through its entirety with circumferential ulcerations seen from 20 to 40 cm past the incisors and additional tongues of ulceration seen from 20 to 28 cm past the incisors. There was no high-risk stigmata or evidence of active/recent bleeding from this region, so no intervention was taken. Otherwise, there was no evidence of mass, lesions, or recent bleeding. Stomach: A 3-to 4-mm clean-based ulceration was seen in the gastric fundus that did not exhibit any high-risk stigmata of active or recent bleeding. Subsequently, no intervention was taken on this ulceration. Otherwise, normal-appearing mucosa was seen in the gastric cardia, the remainder of the fundus, body, greater curvature, antrum, and incisura. There was some mild swelling of the antrum at the pyloric channel, but otherwise there was no evidence of erosions, mass, lesions, or active/recent bleeding. Duodenum: A large duodenal ulceration was seen in the distal bulb and extending into the duodenal sweep. The entirety of the ulceration was difficult to visualize but measured approximately 3 cm in diameter. The ulceration itself was cratered, but did not have any high-risk stigmata within the ulceration itself. However, along the periphery of the ulceration, there were 2 to 3 areas of mild oozing of blood and increased friability, especially with the passage of the gastroscope. These areas of friability/oozing of blood were then intervened upon with bipolar cauterization with good hemostasis achieved (approximately 4 small spots were intervened upon). Otherwise, normal-appearing mucosa was seen in the second portion of the duodenum and extending into the 3rd portion. IMPRESSION: 1. Large duodenal ulceration with mild oozing of blood and increased friability seen in the duodenal sweep, now status post bipolar cauterization with good hemostasis achieved. 2. A 3-to 4-mm clean-based gastric fundus ulceration without high-risk stigmata of bleeding. 3. [place] grade D erosive esophagitis (circumferential involvement of 12 cm with total involvement of 20 cm of the esophagus). RECOMMENDATIONS: 1. We would continue to trend his H and H and transfuse as necessary to maintain an H and H of 7/. 2. Continue to monitor clinically for signs of active GI bleeding. 3. We would continue the patient on PPI, but can be transferred to 40 mg IV b.i.d. rather than the PPI drip. 4. I would obtain a fasting gastrin to evaluate for possible Haley-Velez syndrome given the degree of ulceration of the esophagus and a large ulceration within the duodenum. 5. We will place the patient on a full liquid diet and advance as tolerated. 6. Pain control per Primary Team. 7. We would maintain strict anti-reflux precautions while the patient is in the hospital including maintaining an upright posture for at least 2 hours after meals, avoiding lying down within 2 to 3 hours before bedtime, sitting in the chair as much as possible, etc. We will continue to follow. Please call with any questions. Job ID: [id number]
[2020-02-15] MEDS ORDERED: Pantoprazole 40 MG VIAL IVP SCH (09:45)
[2020-02-15] MEDS: hydrALAZINE 25 MG TAB PO SCH ×2 (10:01→22:12)
[2020-02-15] MEDS: Thiamine 100 MG TAB PO SCH (10:05)
[2020-02-15] MEDS: Amlodipine 10 MG TAB PO SCH (10:05)
[2020-02-15] MEDS: Folic Acid 1 MG TAB PO SCH (10:06)
[2020-02-15] MEDS: Losartan 25 MG TAB PO SCH (10:07)
[2020-02-15] MEDS ORDERED: PROPOFOL 200 MG/20 ML VIAL ONE (15:48)
[2020-02-15] MEDS ORDERED: EPHEDRINE 25 MG/5 ML SYRINGE ONE (15:48)
--- NOTE | 2020-02-15 16:07 | PDOC.HOSPP ---
- Subjective Subjective: Seen and examined. Patient back from EGD, there are significant findings, please see for operative report for details. Patient tells me he has not moved his bowels because he is not been eating. Patient's diet has been advanced for gastroenterology. He is on appropriate maximal medical therapy. - Objective Vital Signs & Weight: Vital Signs (12 hours) Temp Pulse Resp BP Pulse Ox 02/15/20 15:40 97.7 F 67 14 119/64 97 02/15/20 10:05 82 02/15/20 10:01 82 02/15/20 09:20 97.7 F 76 20 118/58 L 100 02/15/20 08:00 97 02/15/20 07:25 98.1 F 82 16 143/62 H 97 Weight Admit Weight 173 lb 11.2 oz Weight 173 lb 11.2 oz I&O: 02/14/20 02/15/20 02/16/20 06:59 06:59 06:59 Intake Total 3427 1080 Output Total 1000 Balance 2427 1080 Result Diagrams: 02/14/20 06:02 02/14/20 06:02 Radiology Reviewed by me: Yes Hospitalist ROS - Review of Systems All other systems reviewed; all pertinent +/- noted in HPI/Subj - Medication Medications: Active Medications Generic Name Dose Route Start Last Admin Trade Name Julian PRN Reason Stop Dose Admin Amlodipine Besylate 10 mg 02/12/20 09:00 02/15/20 10:05 Norvasc PO Not Given DAILY LASHAY Diltiazem HCl 180 mg 02/12/20 09:00 02/15/20 10:05 Cardizem Cd PO 180 mg DAILY LASHAY Administration Folic Acid 1 mg 02/12/20 09:00 02/15/20 10:06 Folvite PO 1 mg DAILY LASHAY Administration Hydralazine HCl 50 mg 02/14/20 21:00 02/15/20 10:01 Apresoline PO Not Given BID LASHAY Sodium Chloride 1,000 mls @ 70 mls/hr 02/11/20 18:15 02/15/20 12:52 Normal Saline 0.9% IV 1,000 mls .[id number] LASHAY Administration Losartan Potassium 50 mg 02/12/20 09:00 02/15/20 10:07 Cozaar PO Not Given DAILY LASHAY Metoprolol Succinate 25 mg 02/12/20 09:00 02/15/20 10:15 Toprol Xl PO 25 mg DAILY LASHAY Administration Thiamine HCl 100 mg 02/12/20 09:00 02/15/20 10:05 Thiamine PO 100 mg DAILY LASHAY Administration - Exam General Appearance: NAD, awake alert Eye: PERRL ENT: normocephalic atraumatic, no oropharyngeal lesions Neck: supple, symmetric, no lymphadenopathy Heart: no murmur, no gallops, no rubs Respiratory: CTAB, no wheezes, no rales, no ronchi, normal chest expansion Gastrointestinal: soft, non-tender, no guarding, no rigidity Extremities: 2+ LE edema Skin: no lesions, no rashes Neurological: cranial nerve grossly intact, no focal deficits Musculoskeletal: generalized weakness Psychiatric: normal behavior, A&O x 3 Hosp A/P (1) TAMMY (acute kidney injury) Code(s): N17.9 - ACUTE KIDNEY FAILURE, UNSPECIFIED Status: Acute (2) Dehydration Code(s): E86.0 - DEHYDRATION Status: Acute (3) Duodenal ulcer Status: Acute (4) Hypokalemia Code(s): E87.6 - HYPOKALEMIA Status: Acute (5) A-fib Code(s): I48.91 - UNSPECIFIED ATRIAL FIBRILLATION Status: Acute (6) Acute blood loss anemia Code(s): D62 - ACUTE POSTHEMORRHAGIC ANEMIA Status: Acute (7) Anemia due to blood loss Code(s): D50.0 - IRON DEFICIENCY ANEMIA SECONDARY TO BLOOD LOSS (CHRONIC) Status: Acute (8) Duodenal ulcer hemorrhage Code(s): K26.4 - CHRONIC OR UNSPECIFIED DUODENAL ULCER WITH HEMORRHAGE Status : Acute (9) GI bleeding Code(s): K92.2 - GASTROINTESTINAL HEMORRHAGE, UNSPECIFIED Status: Acute (10) Alcohol abuse Code(s): F10.10 - ALCOHOL ABUSE, UNCOMPLICATED Status: Chronic (11) HTN (hypertension) Code(s): I10 - ESSENTIAL (PRIMARY) HYPERTENSION Status: Chronic (12) Hyperlipidemia Code(s): E78.5 - HYPERLIPIDEMIA, UNSPECIFIED Status: Chronic - Plan Plan: medical/surgical unit gastroenterology consultation, recommendations appreciated status post repeat EGD with significant findings, see full operative report for details Ruling out Haley Velez syndrome, gastrin level pending continue PPI BID chronic afib, anticoagulation contraindicated with GI bleeding Adjusted BP regimen, blood pressure has been on the soft side. Holding parameters for BP Meds: Hold if SBP <120 or MAP <65. Hold Beta jacques and diltiazem if HR <60 Replac continue other home medications as able blood pressure control blood sugar control G.I. prophylaxis DVT prophylaxis, chemical contraindicated with GI bleeding Disposition: Improving with maximum medical/ surgical therapy from gastroenterology, recommendations appreciated
[2020-02-15] MEDS: Pantoprazole 40 MG VIAL IVP SCH (22:13)
[2020-02-16 04:23] LABS: #Eosinphils 0.1 thou/uL (0.0-0.7); #Lymphocytes 1.3 thou/uL (1.20-3.40); #Monocytes 0.7 thou/uL (0.11-0.59); #Neutrophils 2.7 thou/uL (1.40-6.50); %Eosinophils 2.2 % (0.0-10.0); %Lymphocytes 26.3 % (21.0-51.0); %Monocytes 14.1 % (0.0-10.0); %Neutrophils 56.4 % (42.0-75.0); Hemoglobin 9.1 g/dL (14.0-18.0); Mean Corpuscular HGB CONC 30.3 g/dL (32.0-36.0); Mean Corpuscular Hemoglobin 28.9 pg (27.0-31.0); Mean Corpuscular Volume 95.4 fL (78.0-98.0); Mean Platelet Volume 6.5 fL (7.4-10.4); Platelet Count 306 thou/uL (130-400); RBC Distribution Width 14.9 % (11.5-14.5); Red Blood Cell (RBC) Count 3.16 mill/uL (4.70-6.10); White Blood Cell (WBC) Count 4.8 thou/uL (4.8-10.8)
[2020-02-16] MEDS: Folic Acid 1 MG TAB PO SCH (08:15)
[2020-02-16] MEDS: Thiamine 100 MG TAB PO SCH (08:15)
[2020-02-16] MEDS: Pantoprazole 40 MG VIAL IVP SCH ×2 (08:16→20:36)
[2020-02-16] MEDS ORDERED: Furosemide 40 MG/4 ML VIAL SLOW IVP SCH (09:45)
[2020-02-16] MEDS: Losartan 25 MG TAB PO SCH (10:06)
[2020-02-16] MEDS: Amlodipine 10 MG TAB PO SCH (10:06)
[2020-02-16] MEDS: hydrALAZINE 25 MG TAB PO SCH ×2 (10:06→20:35)
[2020-02-16] MEDS: Sodium Chloride 0.9% 1,000 ML IV SCH ×3 (10:12→20:40)
--- NOTE | 2020-02-16 10:58 | PRG ---
DATE OF SERVICE: 02/16/2020 REASON FOR CONSULTATION: Duodenal ulceration, abdominal pain, and anemia. SUBJECTIVE: The patient underwent repeat upper endoscopy yesterday with the findings of the large duodenal ulcerations seen at the duodenal sweep, that did not exhibit any high-risk stigmata of bleeding itself. However, around the cratered edge of the ulceration, there were multiple areas of oozing of blood and those were also very friable to the passage of the endoscope that required cautery in order to achieve hemostasis. Today, the patient states that he is doing well with no complaints or problems overnight. Currently, denies any nausea, vomiting, fevers, chills, GI bleeding or abdominal pain. OBJECTIVE: VITAL SIGNS: Temperature 97.8, pulse 80, blood pressure 138/78, respiratory rate 18, and saturating 97% on room air. GENERAL: The patient was sitting at bedside, in no acute distress. Alert and oriented x4. CARDIOVASCULAR: Regular rate and rhythm. RESPIRATORY: Clear to auscultation bilaterally. ABDOMEN: Normoactive bowel sounds. Soft, nontender, and nondistended. EXTREMITIES: No cyanosis, clubbing or edema. LABORATORY DATA: CBC with a white blood cell count of 4.8, hemoglobin 9.1, hematocrit 30.2, and platelets 306. Chemistry with a sodium of 132, potassium 3.7, chloride 99, CO2 of 24, BUN 18, creatinine 1.41, and glucose 94. IMAGING DATA: Repeat upper endoscopy was performed on February 15, 2020, with the findings of a large duodenal ulceration located at the duodenal sweep, that itself did not exhibit high-risk stigmata of bleeding, but did have mild oozing of bleeding along the ulcerative edge, that was intervened upon with bipolar cauterization. A 3- to 4-mm ulceration was seen in the gastric fundus, that was clean based and did not exhibit any high-risk stigmata of bleeding. He also had severe [place] grade D erosive esophagitis extending the majority of the esophagus. ASSESSMENT AND PLAN: The patient is a 69-year-old male with past medical history of hyperlipidemia, chronic alcohol abuse, and duodenal ulceration secondary to Helicobacter pylori infection, who initially presented for readmission for abdominal pain (resolved), but now having downtrending H and H concerning for gastrointestinal bleeding in addition to severe ulcerative esophagitis. Duodenal ulceration with contained perforation/anemia: The patient was admitted to the hospital 2 to 3 weeks ago with findings of a large duodenal ulceration, that was intervened upon with bipolar cauterization to achieve hemostasis. He did well in the postprocedure period and was ultimately discharged to home, but experienced increased abdominal pain, which prompted readmission. During the course of this hospitalization, he has had complete resolution of his abdominal pain and repeat upper endoscopy performed on February 15, 2020, showed mild oozing of blood around the duodenal ulcer edge, that was intervened with bipolar cauterization. At the current time, the patient is doing well with stabilization of his H and H and no further episodes of clinical signs of GI bleeding. Recommendations: 1. We will continue the patient on pantoprazole 40 mg IV b.i.d., which can be transferred to oral formulation on discharge. 2. Continue to trend his H and H and transfuse as necessary to maintain an H and H of 7/21. 3. Continue to monitor clinically for signs of active GI bleeding. 4. If the patient has stabilization of his H and H on blood draw tomorrow and no further evidence of clinical GI bleeding, he could potentially be discharged to home with followup in the outpatient clinic. 5. If the patient does have continued downtrending of his H and H, we would consider a tagged red cell scan for further localization. Erosive esophagitis: During the upper endoscopy on February 15, 2020, he had severe ulcerative esophagitis extending from 20 to 40 cm past the incisors with circumferential involvement of the esophagus from 28 to 40 cm past the incisors. Based on its appearance, it seems more consistent with acid reflux esophagitis, and upon conferring with the patient, he has been having symptoms more recently consistent with that diagnosis. Recommendations: 1. We would continue the patient on PPI 40 mg b.i.d. 2. Maintain strict anti-reflux precautions during this hospitalization. 3. We would follow up on the fasting gastrin. 4. 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 We will continue to follow. Please call with any questions. Job ID: [id number]
--- NOTE | 2020-02-16 14:50 | PDOC.HOSPP ---
- Subjective Encounter Date: 02/16/20 Encounter Time: 09:00 Subjective: no abd pain or nausea still has dark stools - Objective Vital Signs & Weight: Vital Signs (12 hours) Temp Pulse Resp BP Pulse Ox 02/16/20 11:00 97.9 F 72 18 124/63 100 02/16/20 10:06 80 02/16/20 08:00 97 02/16/20 07:25 97.8 F 80 18 138/78 97 02/16/20 03:29 98.1 F 76 16 134/62 97 Weight Admit Weight 173 lb 11.2 oz Weight 173 lb 11.2 oz I&O: 02/15/20 02/16/20 02/17/20 06:59 06:59 06:59 Intake Total 8728 0170 Output Total 575 Balance 8745 1347 Result Diagrams: 02/16/20 04:14 02/14/20 06:02 Hospitalist ROS - Medication Medications: Active Medications Generic Name Dose Route Start Last Admin Trade Name Freq PRN Reason Stop Dose Admin Amlodipine Besylate 10 mg 02/12/20 09:00 02/16/20 10:06 Norvasc PO Not Given DAILY LASHAY Diltiazem HCl 180 mg 02/12/20 09:00 02/16/20 08:15 Cardizem Cd PO 180 mg DAILY LASHAY Administration Folic Acid 1 mg 02/12/20 09:00 02/16/20 08:15 Folvite PO 1 mg DAILY LASHAY Administration Hydralazine HCl 50 mg 02/14/20 21:00 02/16/20 10:06 Apresoline PO Not Given BID LASHAY Sodium Chloride 1,000 mls @ 70 mls/hr 02/11/20 18:15 02/16/20 10:12 Normal Saline 0.9% IV 1,000 mls .[id number] LASHAY Administration Losartan Potassium 50 mg 02/12/20 09:00 02/16/20 10:06 Cozaar PO Not Given DAILY LASHAY Metoprolol Succinate 25 mg 02/12/20 09:00 02/16/20 08:15 Toprol Xl PO 25 mg DAILY LASHAY Administration Pantoprazole Sodium 40 mg 02/15/20 21:00 02/16/20 08:16 Protonix IVP 40 mg Q12HR LASHAY Administration Thiamine HCl 100 mg 02/12/20 09:00 02/16/20 08:15 Thiamine PO 100 mg DAILY LASHAY Administration - Exam General Appearance: awake alert Eye: PERRL, anicteric sclera ENT: no oropharyngeal lesions, moist mucosa Neck: supple, no JVD Heart: RRR, no murmur Respiratory: no wheezes, no rales Gastrointestinal: soft, non-tender, non-distended, normal bowel sounds Extremities: no cyanosis, no edema Neurological: cranial nerve grossly intact, no focal deficits Hosp A/P (1) Duodenal ulcer Status: Acute (2) A-fib Code(s): I48.91 - UNSPECIFIED ATRIAL FIBRILLATION Status: Acute Qualifiers: Atrial fibrillation type: paroxysmal Qualified Code(s): I48.0 - Paroxysmal atrial fibrillation (3) Acute blood loss anemia Code(s): D62 - ACUTE POSTHEMORRHAGIC ANEMIA Status: Acute (4) GI bleeding Code(s): K92.2 - GASTROINTESTINAL HEMORRHAGE, UNSPECIFIED Status: Acute Qualifiers: GI bleed type/associated pathology: duodenal ulcer Qualified Code(s): K26.4 - Chronic or unspecified duodenal ulcer with hemorrhage (5) Alcohol abuse Code(s): F10.10 - ALCOHOL ABUSE, UNCOMPLICATED Status: Chronic (6) HTN (hypertension) Code(s): I10 - ESSENTIAL (PRIMARY) HYPERTENSION Status: Chronic Qualifiers: Hypertension type: essential hypertension Qualified Code(s): I10 - Essential (primary) hypertension (7) Hyperlipidemia Code(s): E78.5 - HYPERLIPIDEMIA, UNSPECIFIED Status: Chronic Qualifiers: Hyperlipidemia type: unspecified Qualified Code(s): E78.5 - Hyperlipidemia , unspecified (8) Reflux esophagitis Code(s): K21.0 - GASTRO-ESOPHAGEAL REFLUX DISEASE WITH ESOPHAGITIS Status: Acute - Plan has large duodenal ulcer, gastric ulcer and extensive erosive esophagitis on EGD on protonix, liq diet continue norvasc, cradizem cd, toprol, cozaar, hydralazine, iv fluids likely dc plan in am if stable
[2020-02-17] MEDS: Losartan 25 MG TAB PO SCH (08:30)
[2020-02-17] MEDS: Pantoprazole 40 MG VIAL IVP SCH (08:30)
[2020-02-17] MEDS: Folic Acid 1 MG TAB PO SCH (08:31)
[2020-02-17] MEDS: Amlodipine 10 MG TAB PO SCH (08:31)
[2020-02-17] MEDS: hydrALAZINE 25 MG TAB PO SCH (08:31)
[2020-02-17] MEDS: Thiamine 100 MG TAB PO SCH (08:31)
[2020-02-17 09:19] LABS: #Basophils 0.1 thou/uL (0.0-0.2); #Eosinphils 0.1 thou/uL (0.0-0.7); #Lymphocytes 1.5 thou/uL (1.20-3.40); #Monocytes 0.9 thou/uL (0.11-0.59); #Neutrophils 3.4 thou/uL (1.40-6.50); %Basophils 1.1 % (0.0-1.0); %Eosinophils 2.2 % (0.0-10.0); %Lymphocytes 24.4 % (21.0-51.0); %Monocytes 14.8 % (0.0-10.0); %Neutrophils 57.5 % (42.0-75.0); Hemoglobin 9.9 g/dL (14.0-18.0); Mean Corpuscular HGB CONC 31.5 g/dL (32.0-36.0); Mean Corpuscular Hemoglobin 29.4 pg (27.0-31.0); Mean Corpuscular Volume 93.5 fL (78.0-98.0); Mean Platelet Volume 6.7 fL (7.4-10.4); Platelet Count 346 thou/uL (130-400); RBC Distribution Width 14.8 % (11.5-14.5); Red Blood Cell (RBC) Count 3.37 mill/uL (4.70-6.10)
[2020-02-17 09:38] LABS: Anion Gap 10 mmol/L (10-20); BUN (Urea Nitrogen) 5 mg/dL (8.4-25.7); Calc. Creatinine Clearance 79 mL/min (70-130); Calcium 7.7 mg/dL (7.8-10.44); Carbon Dioxide 26 mmol/L (23-31); Chloride 100 mmol/L (98-107); Estimated GFR-MDRD 78; Glucose 101 mg/dL (83-110); Potassium 3.1 mmol/L (3.5-5.1); Sodium 133 mmol/L (136-145)
[2020-02-17 11:29] VITALS: BP 143/70; TEMP 97.4
[2020-02-17] MEDS ORDERED: Potassium Chloride 20 MEQ TAB PO SCH ×2 (12:00→17:00)
[2020-02-17] MEDS ORDERED: Furosemide 20 MG TAB PO SCH (12:00)
--- NOTE | 2020-02-17 14:45 | PRG ---
DATE OF SERVICE: 02/17/2020 SUBJECTIVE: Mr. Calix feels much better today. He has no abdominal pain or nausea. He is tolerating his diet. OBJECTIVE: VITAL SIGNS: Temperature 97.4, pulse 66, blood pressure 143/70. GENERAL: He is in no acute distress. Alert and oriented x3. HEENT: Eyes have no scleral icterus. Oropharynx is clear without lesions. LUNGS: Clear to auscultation bilaterally. HEART: Regular rate and rhythm without murmur. ABDOMEN: Soft, nontender, and nondistended. Bowel sounds are present. LABORATORY DATA: Hemoglobin is 9.9 and stable, white blood cell count 6.0. Creatinine 0.95. IMPRESSION: 1. Duodenal ulcer and erosive esophagitis, status post cautery of bleeding sites of the duodenal ulcer. His hemoglobin is stabilized. 2. Anemia of acute and chronic blood loss. RECOMMENDATIONS: 1. I went over his medications with him prior to discharge. He has omeprazole 40 mg tablets, which he can take twice daily. He also has a prescription for pantoprazole 40 mg twice daily and he knows to take either one or the other. 2. Await fasting gastrin level drawn this morning. 3. Follow up in GI Clinic in around 4 weeks. 4. I reinforced that he should avoid NSAIDs and smoking and alcohol. 5. He will likely require a followup endoscopy to verify healing in the future. Job ID: [id number]
--- NOTE | 2020-02-17 18:13 | DIS ---
DATE OF ADMISSION: 02/11/2020 DATE OF DISCHARGE: 02/17/2020 DISCHARGE DISPOSITION: To home. PRIMARY DISCHARGE DIAGNOSES: Large duodenal ulcer, gastric ulcer, reflux esophagitis, acute blood loss anemia with gastrointestinal bleed secondary to above, history of chronic atrial fibrillation, history of alcohol abuse, hypertension, dyslipidemia, and chronic atrial fibrillation. PROCEDURES DONE DURING HOSPITALIZATION: Abdominal and pelvic CAT scan done on the day of admission showed findings suggestive of inflammatory changes in the epigastric region compatible with the patient's history of perforated ulcer disease. There is evidence of fluid and stranding in the adjacent mesentery. There are also small pockets of extraluminal air suspected, may represent a contained perforation. There are enlarged mesenteric lymph nodes, likely reactive. Upper endoscopy done on 02/15/[address] Lance Love revealed large duodenal ulcer with mild oozing of blood and increased friability, status post bipolar cauterization with good hemostasis, a 3- to 4-mm clean based gastric fundus ulceration without high-risk stigmata of bleeding, [place] grade B erosive esophagitis (circumferential involvement of 12 cm with total involvement of 20 cm of the esophagus). H and H 10 and , platelet count 346, MCV 93, BUN 5, creatinine 0.9, and albumin 3.3. DISCHARGE MEDICATIONS: 1. Protonix 40 mg twice daily. 2. Thiamine 100 mg p.o. daily. 3. Folic acid 1 mg daily. 4. Cardizem CD 180 mg daily. 5. Metoprolol succinate extended release 25 mg daily. 6. Benicar 20 mg daily. 7. Hydralazine 100 mg twice daily. 8. Lasix 20 mg daily. 9. Norvasc 10 mg daily. ALLERGIES: ALLERGIC TO PENICILLIN. INPATIENT CONSULT: Dr. Kate Lucas and Dr. Saul Angeles for Gastroenterology. DISCHARGE PLAN: The patient is to follow up with Dr. Angeles in 2 to 3 weeks. BRIEF COURSE DURING HOSPITALIZATION: The patient initially got admitted on the with complaints of dark stools and generalized weakness. He has had prior history of peptic ulcer disease. The patient was admitted to medical floor and has had consultation with Dr. Lance Love for Gastroenterology. He has had a repeat upper endoscopy done, which showed a large duodenal ulcer, gastric fundal ulcer, and severe reflux esophagitis as well. He has had serial H and H done, which has remained fairly stable with no transfusion done during his stay here. The patient was on IV Protonix, which has been switched over to p.o. twice daily. He is on full liquid diet and is tolerating it well. He will likely be discharged to home today once cleared by Gastroenterology. He has been wanting to go home from last 36 hours now. He is ambulating well. He has not had any abdominal pain. He still has had some black stools, likely from old clotted blood which has coated his colon, might be coming out. He is hemodynamically stable. Please note, I have seen and examined the patient on the day of discharge. The patient has been strongly counseled against using alcohol or tobacco products or spicy food including fried food. Pending labs: serum gastrin levels, needs to be f/u by PCP and at f/u with GI in 3-4 weeks for follow up EGD to look for healing of his severe ulcers. Job ID: [id number] MTDLeigh Ann
[2020-02-18] MEDS ORDERED: Furosemide 20 MG TAB PO SCH (09:00)
== END 2020-02-17 13:05 | disposition home or self-care (01) | DRG 378 ==
LOC: ERS 12:15 → SURG B 17:20
PROVIDERS: ADMIT Internal Medicine; ATTEND Internal Medicine
PROC: 0W3P8ZZ Control Bleeding in Gastrointestinal Tract, Via Natural or Artificial Opening Endoscopic (ICD-10-PCS; principal; 2020-02-15)
DX: K26.6 Chronic or unspecified duodenal ulcer with both hemorrhage and perforation (principal); N17.9 Acute kidney failure, unspecified; D62 Acute posthemorrhagic anemia; I48.20 Chronic atrial fibrillation, unspecified; K22.10 Ulcer of esophagus without bleeding; I10 Essential (primary) hypertension; F17.290 Nicotine dependence, other tobacco product, uncomplicated; E87.6 Hypokalemia; E78.5 Hyperlipidemia, unspecified; B35.1 Tinea unguium; F10.10 Alcohol abuse, uncomplicated; E86.0 Dehydration; K21.0 Gastro-esophageal reflux disease with esophagitis; K25.9 Gastric ulcer, unspecified as acute or chronic, without hemorrhage or perforation; Z88.0 Allergy status to penicillin; Z79.899 Other long term (current) drug therapy; Z87.11 Personal history of peptic ulcer disease
CPT/HCPCS: 36415; 74177; 80048; 80053; 82941; 83690; 83735; 84100; 85014; 85018; 85025; 86850; 86870; 86900; 86901; 86905; 86922; 93005; 93010; 96361; 96365; 96366; 96374; 96375; C9113; J1940; J2405; J2704; J3480; J3490; J7050

== ENCOUNTER 2020-03-27 15:34 | Inpatient (IN) | payer MEDICARE, OTHER ==
[~2020-03-27 15:34] MED LIST: Iopamidol-370 76% 500 ML 1 ML ONE
[2020-03-27 17:20] LABS: #Monocytes 1.3 thou/uL (0.11-0.59); #Neutrophils 15.6 thou/uL (1.40-6.50); %Basophils 0.1 % (0.0-1.0); %Lymphocytes 5.6 % (21.0-51.0); %Monocytes 7.4 % (0.0-10.0); %Neutrophils 86.9 % (42.0-75.0); Hemoglobin 12.5 g/dL (14.0-18.0); Mean Corpuscular HGB CONC 31.1 g/dL (32.0-36.0); Mean Corpuscular Hemoglobin 25.6 pg (27.0-31.0); Mean Corpuscular Volume 82.4 fL (78.0-98.0); Mean Platelet Volume 6.9 fL (7.4-10.4); Platelet Count 472 thou/uL (130-400); RBC Distribution Width 15.6 % (11.5-14.5); Red Blood Cell (RBC) Count 4.87 mill/uL (4.70-6.10); White Blood Cell (WBC) Count 17.9 thou/uL (4.8-10.8)
[2020-03-27] MEDS ORDERED: Morphine 4 MG/ML VIAL ONE (17:22)
[2020-03-27] MEDS ORDERED: Ondansetron PF 4 MG/2 ML Vial ONE (17:22)
[2020-03-27 17:42] LABS: ALT (SGPT) 14 U/L (8-55); AST (SGOT) 18 U/L (5-34); Albumin 3.9 g/dL (3.4-4.8); Alkaline Phosphatase 106 U/L (40-110); Anion Gap 17 mmol/L (10-20); BUN (Urea Nitrogen) 12 mg/dL (8.4-25.7); Bilirubin, Total 0.5 mg/dL (0.2-1.2); Calc. Creatinine Clearance 0 mL/min (70-130); Calcium 9.8 mg/dL (7.8-10.44); Carbon Dioxide 26 mmol/L (23-31); Chloride 99 mmol/L (98-107); Estimated GFR-MDRD 87; Globulin 3.8 g/dL (2.4-3.5); Glucose 132 mg/dL (83-110); Lipase 20 U/L (8-78); Potassium 3.4 mmol/L (3.5-5.1); Protein, Total 7.7 g/dL (5.8-8.1); Sodium 139 mmol/L (136-145)
[2020-03-27] MEDS ORDERED: Promethazine HCl 25 MG/ML VIAL ONE (18:52)
[2020-03-27] MEDS ORDERED: Pantoprazole 40 MG VIAL ONE (18:52)
--- NOTE | 2020-03-27 19:22 | CT ---
CT OF THE ABDOMEN AND PELVIS 03/27/20 COMPARISON: 02/11/20. HISTORY: Abdominal pain. TECHNIQUE: Axial CT imaging at 5 mm intervals from the lung base through the pubic symphysis with IV contrast. C oronal and sagittal reformatted imaging obtained. FINDINGS: The imaged lung bases are unremarkable. Coronary arterial calcifications noted. Cardiac silhouette is prominent. There is a small hiatal hernia present. The distal esophagus is thick walled and there is fluid adjac ent to the thick walled distal esophagus. The liver, gallbladder, and spleen appear grossly unremarkable. The fluid next to the thick walled distal esophagus is similar when compared to the 02/11/20 examinati on. As seen on the prior examination, there is thickening of the duodenum with adjacent inflammatory fat stranding which is slightly less conspicuous than on the 02/11/20 exam. No focal pancreatic abnorm ality. Adrenal glands and kidneys appear grossly unremarkable. There is a small focus of increased density within the presacral fat anterior to the inferior sacrum, best seen on axial image 75 measuring 1.4 cm in transverse dimension, similar when compared to prior studies dating back to 02/13/20. Continued follow-up is advised given nonspecific nature of this find ing. There is no evidence for inflammatory change or obstruction of the colon. No small bowel obstruction is evident. The stomach is filled with fluid. There is fluid within multiple nondilated small bowel l oops. The vascular structures of the abdomen/pelvis demonstrates scattered atherosclerotic calcification of the abdominal aorta and its branches. No retroperitoneal or pelvic adenopathy. Mildly prominent node s are again seen in the man hepatis, as seen on prior imaging. There are also a few mildly prominen t lymph nodes within the gastrohepatic ligament, stable as well. Review of the osseous structures demonstrates no worrisome lytic or blastic bone lesions. No acute osseous abnormality is seen. There is subtle small area of fluid medial to the thick walled duodenum which suggests minimal residu al fluid on the basis of microperforation, less conspicuous than on 02/10 and 01/24/20 CT examinations. IMPRESSION: 1. Prominent distal esophageal wall thickening with adjacent fluid and inflammatory change. Find ings are suspicious for a nonspecific esophagitis. 2. Inflammatory change of the duodenum with adjacent fat stranding, slightly less conspicuous th an on the prior exam. Findings suggest duodenitis, possibly on the basis of peptic ulcer disease. 3. Nonspecific soft tissue density in the presacral fat. All three of the above described findings should be further evaluated with short term follow-up CT to confirm resolution. GI consultation is suggested as well. 4. There is a subtle small fluid collection medial to the thick walled duodenum between the duod enum and the head of the pancreas suggesting a focal area of contained perforation which is less cons picuous than on the 02/11/20 examination as well as the 01/24/20 examination. POS: [facility]
[2020-03-27 19:27] LABS: Bacteria/HPF None Seen HPF (None Seen); Bilirubin Negative (Negative); Blood, Urine Negative (Negative); Clarity Clear (Clear); Glucose, Urine (Dipstick) Normal (Negative); Ketone, Urine Negative (Negative); Leukocyte Negative Leu/uL (Negative); Mucous/LPF Rare LPF (<2+); Nitrite Negative (Negative); Protein, Urine (Dipstick) 30 mg/dL (Neg-Trace); Specific Gravity, Urine 1.035 (1.002-1.036); Squamous Epithelial None Seen HPF (0-3); Urobilinogen Normal mg/dL (Less than 2); pH, Urine 7.5 (5.0-9.0)
[2020-03-27] MEDS ORDERED: Sodium Chloride 0.9% 1,000 ML IV SCH (21:39)
[2020-03-27] MEDS ORDERED: Ondansetron PF 4 MG/2 ML Vial IVP PRN ×2 (21:39→21:49)
[2020-03-27] MEDS ORDERED: Ondansetron ODT 4 MG TAB SL PRN (21:39)
[2020-03-27] MEDS ORDERED: Acetaminophen 325 MG TAB PO PRN (21:49)
[2020-03-27] MEDS ORDERED: Ondansetron ODT 4 MG TAB PO PRN (21:49)
[2020-03-27] MEDS ORDERED: Acetaminophen 650 MG Suppository PR PRN (21:49)
[2020-03-27 21:57] VITALS: BMI 27.1
[2020-03-27] MEDS ORDERED: Sodium Chloride 0.9% (PF) 10 ML VIAL FS PRN (21:59)
[2020-03-27 22:22] LABS: Hemoglobin 11.4 g/dL (14.0-18.0)
[2020-03-27] MEDS: Sodium Chloride 0.9% 1,000 ML IV SCH (22:24)
--- NOTE | 2020-03-27 23:30 | HP ---
TIME OF ASSESSMENT: 2099. CHIEF COMPLAINT: Abdominal pain and vomiting. PRIMARY CARE PHYSICIAN: None. HISTORY OF PRESENT ILLNESS: Mr. Calix is a 69-year-old gentleman, who presents to the emergency department today complaining of diffuse abdominal discomfort that started yesterday. Reports having several episodes of vomiting bilious fluid today and became concerned when he saw dark appearing contents, which he states look like dark chocolate. He was recently admitted to the hospital for GI bleed and underwent cauterization of a large bleeding duodenal ulcer. The patient states he was worried that he was bleeding again and opted to come in for further evaluation. He had undergone cauterization by Dr. Love during his admission and states he has follow up with Dr. Angeles this upcoming Sunday. At present, the patient denies having any abdominal pain and has not had any further episodes of vomiting since arriving to the emergency department. He states he has otherwise been well in recent days and has not noted any changes with his stools. No bright red blood per rectum or melena. Denies any lightheadedness or dizziness. No chest pain, palpitations, or shortness of breath. He has been tolerating oral intake. He states he has a history of heavy alcohol use in the past but since one month ago, he has switched to nonalcoholic beer. He reports drinking 2 to 3 of these a day. In the emergency department, the patient was noted to have an elevated blood pressure of 151/98. He was given Zofran by EMS while en route to the emergency department. While in the ED, he was given promethazine and additional Zofran. He received 1 L of normal saline. Also given 4 mg of morphine for his pain and 40 mg of IV Protonix. He had laboratory studies done, which demonstrated white count of 17.9, hemoglobin of 12.5 compared to 9.9 at the time of discharge on February 17, 2020, hematocrit 40.2, platelets 472, neutrophils 86.9. Sodium 139, potassium slightly low at 3.4, BUN 12, creatinine 0.87, GFR 87. Glucose 132, calcium 9.8. LFTs unremarkable. Lipase normal at 20. Troponin negative. Urinalysis done was notable for protein, 4 to 6 red blood cells, 4 to 6 white blood cells, 1+ amorphous crystals. No bacteria. No nitrites. He underwent imaging of the abdomen and pelvis with CAT scan, which showed prominent distal esophageal wall thickening with adjacent fluid and inflammatory change, suspicious for nonspecific esophagitis. Inflammatory change of the duodenum with adjacent fat stranding, slightly less conspicuous than on prior exam. Findings suggest duodenitis. Nonspecific soft tissue density in the presacral fat. Short-term follow up CT imaging recommended, as well as GI consultation. Subtle small fluid collection medial to the thick-walled duodenum between the duodenum and the head of the pancreas suggesting a focal area of contained perforation, was conspicuous on February 11, 2020, as well as January 24, 2020. PAST MEDICAL HISTORY: 1. Chronic atrial fibrillation. 2. Hypertension. 3. History of bleeding duodenal ulcer and contained perforation. 4. Esophagitis. 5. History of heavy alcohol abuse. 6. Obesity. 7. Hyperlipidemia. PAST SURGICAL HISTORY: As mentioned, he underwent cauterization of a bleeding duodenal ulcer. FAMILY HISTORY: Hypertension and hyperlipidemia. SOCIAL HISTORY: The patient lives alone. He denies any tobacco use. Reports drinking alcohol heavily in the past but as of one month ago, has been drinking 2 to 3 beers a day. He is a full code status, but does not have a medical power of securities attorney established. ALLERGIES: PENICILLIN. CURRENT MEDICATIONS: 1. Amlodipine. 2. Furosemide. 3. Metronidazole. 4. Hydralazine. 5. Pantoprazole. PHYSICAL EXAMINATION: GENERAL: The patient appears well developed, well nourished, is in no acute distress. He is resting comfortably in bed. VITAL SIGNS: Temperature 98.3, pulse 100, respirations 18, O2 saturation 98% on room air, and blood pressure 130/72. HEENT: Normocephalic and atraumatic. Pupils are equal, round, and reactive to light. Sclerae without icterus. Oropharynx is clear. Poor dentition. NECK: Supple. LUNGS: Clear to auscultation bilaterally without wheezes, rales, or rhonchi. CARDIAC: Regular rate and rhythm. ABDOMEN: Soft, obese, nontender, and nondistended. No guarding or rigidity. No renal angle tenderness. Negative Martinez sign. No epigastric discomfort on palpation. EXTREMITIES: No lower extremity edema. No calf tenderness. NEUROLOGIC: Alert and oriented x3. No neuro deficits on exam. SKIN: Warm and dry. INVESTIGATIONS: As mentioned above in HPI. IMPRESSION AND PLAN: Mr. Calix is a 69-year-old gentleman with a history of heavy alcohol abuse, who quit one month ago and has had multiple admissions to the hospital due to GI bleed. In February 2020, he underwent cauterization of a bleeding duodenal ulcer and known to have a contained perforation noted on CT imaging done in the emergency department today. The patient returns due to recurring abdominal pain and concern for recurring GI bleed. He is being admitted for the following. 1. GI bleed. The patient states he had several episodes of vomiting today and the last one had an appearance of dark chocolate. He has had no further vomiting since then. No complaints of melena or bright red blood per rectum in recent days. We will continue Protonix 40 mg IV b.i.d. We will continue to monitor H and H. Consultation placed to Dr. Love of Gastroenterology. 2. Abdominal pain has fully resolved. LFTs unremarkable. We will continue to monitor. 3. Hypertension. Monitor blood pressure and reconcile home medications once verified. 4. History of chronic atrial fibrillation. The patient is not on anticoagulation due to history of bleeding peptic ulcer. 5. Chronic alcohol use/abuse. The patient states he has not been drinking for the last month. He is currently drinking nonalcoholic beers only. 6. Deep venous thrombosis prophylaxis. Mechanical SCDs. Pharmacological prophylaxis contraindicated given concern for GI bleed. 7. Code status full. Medical power of securities attorney is not established. Case was discussed with attending, who agrees with plan of care as described above. Job ID: [id number] MTDD
[2020-03-28 06:02] LABS: Hemoglobin 11.3 g/dL (14.0-18.0)
[2020-03-28 06:04] LABS: #Basophils 0.1 thou/uL (0.0-0.2); #Eosinphils 0.1 thou/uL (0.0-0.7); #Lymphocytes 1.5 thou/uL (1.20-3.40); #Monocytes 1.5 thou/uL (0.11-0.59); #Neutrophils 10.6 thou/uL (1.40-6.50); %Basophils 0.6 % (0.0-1.0); %Eosinophils 0.4 % (0.0-10.0); %Lymphocytes 10.8 % (21.0-51.0); %Monocytes 11.1 % (0.0-10.0); %Neutrophils 77.1 % (42.0-75.0); Hemoglobin 10.9 g/dL (14.0-18.0); Mean Corpuscular HGB CONC 30.4 g/dL (32.0-36.0); Mean Corpuscular Hemoglobin 25.3 pg (27.0-31.0); Mean Corpuscular Volume 83.1 fL (78.0-98.0); Mean Platelet Volume 6.9 fL (7.4-10.4); Platelet Count 399 thou/uL (130-400); RBC Distribution Width 15.4 % (11.5-14.5); Red Blood Cell (RBC) Count 4.34 mill/uL (4.70-6.10); White Blood Cell (WBC) Count 13.7 thou/uL (4.8-10.8)
[2020-03-28 06:08] LABS: INR-International Normal Ratio 1.2; PTT 49.4 sec (22.9-36.1); Prothrombin Time 14.7 sec (12.0-14.7)
[2020-03-28 06:24] LABS: ALT (SGPT) 11 U/L (8-55); AST (SGOT) 14 U/L (5-34); Albumin 3.3 g/dL (3.4-4.8); Alkaline Phosphatase 84 U/L (40-110); Anion Gap 10 mmol/L (10-20); BUN (Urea Nitrogen) 13 mg/dL (8.4-25.7); Bilirubin, Total 0.5 mg/dL (0.2-1.2); Calc. Creatinine Clearance 88 mL/min (70-130); Calcium 9.1 mg/dL (7.8-10.44); Carbon Dioxide 27 mmol/L (23-31); Chloride 104 mmol/L (98-107); Estimated GFR-MDRD Greater than 90; Globulin 3.5 g/dL (2.4-3.5); Glucose 87 mg/dL (83-110); Potassium 3.3 mmol/L (3.5-5.1); Protein, Total 6.8 g/dL (5.8-8.1); Sodium 138 mmol/L (136-145)
[2020-03-28] MEDS: Pantoprazole 40 MG VIAL IVP SCH ×2 (08:54→21:10)
[2020-03-28 10:09] LABS: Hemoglobin 12.2 g/dL (14.0-18.0)
[2020-03-28 10:44] LABS: CRP (Inflammatory) 4.21 mg/dL (= or < 0.5); Magnesium 1.8 mg/dL (1.6-2.6)
[2020-03-28] MEDS: Sodium Chloride 0.9% 1,000 ML IV SCH ×2 (11:28→23:43)
--- NOTE | 2020-03-28 14:29 | CON ---
DATE OF CONSULTATION: 03/28/2020 REASON FOR CONSULTATION: Midepigastric abdominal pain, hematemesis, recent history of duodenal ulceration. CONSULTING PROVIDER: ALYSSA Farias HISTORY OF PRESENT ILLNESS: The patient is a 69-year-old male with past medical history of atrial fibrillation, hypertension, alcohol abuse, obesity, hyperlipidemia, and recent admission in February 2020 for a perforated duodenal ulcer with bleeding, presenting with complaints of abdominal pain and hematemesis. He states that he was in his usual state of health until approximately 3 days ago when he began having increased midepigastric abdominal pain characterized as a pressure type sensation that radiated to the entire abdomen, was intermittent, and reached a severity of 6 to 7/10. He could not recall any exacerbating factors to this pain, but the pain did get somewhat better with lying down. When compared to his pain in the past, he states that this was very similar in terms of character and severity (although not as severe as last time) and with the onset of this pain, it was also associated with the onset of nausea and vomiting, which the patient had approximately 3 to 4 discrete episodes of vomiting yesterday. Initially, his emesis was clear to bilious in coloration but with further episodes of vomiting/retching, the most recent episode of vomiting had more of a chocolate color in its appearance. On initially speaking with the patient, he states that he may ran out of his acid reflux medication 2 to 3 weeks ago, but upon reviewing his medications in the bag that he brought, he states that he has been taking this twice daily since his last discharge. Otherwise, he denies any fevers, chills, melena, hematochezia, diarrhea, constipation, or further weight loss. REVIEW OF SYSTEMS: A 10-category review of systems was obtained with all responses negative except for the pertinent positives as listed in HPI. PAST MEDICAL HISTORY: As per HPI. PAST SURGICAL HISTORY: Upper endoscopy in January 2020 for his duodenal ulcer. FAMILY HISTORY: Denies any GI malignancies. SOCIAL HISTORY: Had a prior heavy alcohol use before his previous admission, but now has been drinking approximately 2 to 3 nonalcoholic beers per day. He denies any tobacco or illicit drug use. OUTPATIENT MEDICATIONS: Reviewed. ALLERGIES: PENICILLIN. PHYSICAL EXAMINATION: VITAL SIGNS: Temperature 98.3, pulse 77, blood pressure 147/71, respiratory rate 18, saturating 96% on room air. GENERAL: The patient is lying in bed, in no acute distress. Alert and oriented x4. HEENT: Normocephalic, atraumatic. NECK: Supple. No JVD or scleral icterus noted. CARDIOVASCULAR: Regular rate and rhythm with no discernible murmurs, gallops, or rubs. RESPIRATORY: Clear to auscultation bilaterally with no discernible wheezes or rales. ABDOMEN: Normoactive bowel sounds. Soft, nontender, and nondistended. EXTREMITIES: No cyanosis, clubbing, or edema. LABORATORY DATA: CBC with a white blood cell count of 13.7, hemoglobin 11.3, hematocrit 35.4, platelets 399. INR 1.2. Chemistry with a sodium of 138, potassium 3.3, chloride 104, CO2 of 27, BUN 13, creatinine 0.83, glucose 87, AST 14, ALT 11, alkaline phosphatase 84, total bilirubin 0.5, albumin 3.3, lipase 20. IMAGING DATA: CT of the abdomen and pelvis was obtained on March 27, 2020, which showed the presence of a small hiatal hernia as well as thickening of the distal esophagus with fluid adjacent to the esophagus, but stable in appearance when compared to prior CT. There is also thickening of the duodenum with adjacent fat stranding and minimal fluid consistent with microperforation, but also less conspicuous than prior CT, which may indicate improvement. Lastly, the stomach was noted to be filled with fluid with indeterminate significance. EGD was performed on February 15, 2020, which showed significant ulceration of the mid to distal esophagus, characterized as LA grade D reflux esophagitis, a 3 to 4 mm clean base gastric fundus ulceration without high-risk stigmata was also seen in addition to a large duodenal ulceration measuring around 3 cm in size within the duodenal bulb/duodenal sweep that showed mild oozing of blood, but no overt bleeding that was intervened upon with bipolar cauterization. ASSESSMENT AND PLAN: The patient is a 69-year-old male with past medical history of hypertension, chronic alcohol abuse, obesity, hyperlipidemia, atrial fibrillation, and a recent perforated duodenal ulcer, status post upper endoscopy with control of hemorrhage, now presenting with increased midepigastric abdominal pain (resolving) and darker colored emesis. Midepigastric abdominal pain/duodenal ulceration. The patient was recently discharged from the hospital in January 2020, after being diagnosed with a large duodenal ulceration that did exhibit some microperforation on imaging. He did not undergo surgical intervention for this particular ulceration, but instead underwent upper endoscopy with cauterization of aspect of the ulcer to prevent further bleeding. He was having melenic type stools at that time with a significant decrease in his H and H, now presenting with a very similar type of midepigastric abdominal pressure and nausea and vomiting when compared to his previous symptoms, but he does not endorse any melenic type stools. His H and H are actually uptrending when compared to his discharge H and H and his abdominal pain is now resolving with more conservative type measures. He does continue to have some findings on imaging consistent with severe esophagitis as well as duodenitis from the duodenal ulcer, but in both aspects, they seem to be either stable or improving. At this time, the appearance of his hematemesis seems to be more related to repeated episodes of nausea and vomiting. Given that the patient was vomiting more clear bilious emesis with multiple episodes of that prior to the onset of more darker colored emesis, this in turn could be due to his acid reflux or even the duodenal ulceration itself. At this point, the differential diagnosis could include severe acid reflux, gastritis with peptic ulcer disease, worsening of his duodenal ulceration (less likely) with bleeding, arteriovenous malformation, or the Dieulafoy lesion. RECOMMENDATIONS: 1. Would continue to trend his H and H and transfuse as necessary to maintain an H and H of 7 and 21. 2. Continue to monitor clinically for signs of active GI bleeding. 3. Would place the patient on a clear liquid diet today and continue to monitor the patient throughout the day. If exhibiting increased pain or having melenic type stools, would recommend upper endoscopy tomorrow. 4. Pain control per primary team. 5. Continue the patient on pantoprazole 40 mg IV b.i.d. 6. Would maintain strict antireflux precautions while the patient is in the hospital given his history of severe reflux esophagitis. 7. We will hold on upper endoscopy for right now given his uptrending H and H, only this one episode of possible hematemesis and resolving abdominal pain, nausea, and vomiting. However, if the patient has recurrence of his abdominal pain, nausea, vomiting, or possible hematemesis or even melenic type stools, I would highly recommend an upper endoscopy. We will continue to follow. Please call with any questions. Job ID: [id number]
--- NOTE | 2020-03-28 15:53 | PDOC.HOSPP ---
- Subjective Encounter Date: 03/28/20 Encounter Time: 13:00 Subjective: pt up in bed no complains - Objective Vital Signs & Weight: Vital Signs (12 hours) Temp Pulse Resp BP BP Pulse Ox 03/28/20 11:41 98.2 F 91 18 128/71 96 03/28/20 07:41 98.3 F 77 18 147/71 H 96 03/28/20 03:57 98.5 F 85 18 143/81 H 98 Weight Weight 168 lb 8 oz I&O: 03/27/20 03/28/20 03/29/20 06:59 06:59 06:59 Intake Total 600 500 Output Total 300 Balance 300 500 Result Diagrams: 03/28/20 09:50 03/28/20 05:30 Hospitalist ROS - Review of Systems Cardiovascular: denies: chest pain, palpitations, orthopnea, paroxysmal noc. dyspnea, edema, light headedness, other Gastrointestinal: denies: nausea, vomiting, abdominal pain, diarrhea, constipation, melena, hematochezia, other Genitourinary: denies: dysuria, frequency, incontinence, hematuria, retention, other - Medication Medications: Active Medications Generic Name Dose Route Start Last Admin Trade Name Freq PRN Reason Stop Dose Admin Sodium Chloride 1,000 mls @ 75 mls/hr 03/27/20 22:18 03/28/20 11:28 Normal Saline 0.9% IV 1,000 mls .[id number] LASHAY Administration Pantoprazole Sodium 40 mg 03/28/20 09:00 03/28/20 08:54 Protonix IVP 40 mg BID LASHAY Administration Sodium Chloride 10 ml 03/27/20 21:49 03/27/20 22:24 Flush - Normal Saline IVF 10 ml Q12HR PRN Administration Saline Flush - Exam Neck: negative: supple, symmetric, no JVD, no thyromegaly, no lymphadenopathy, no carotid bruit, JVD Heart: negative: RRR, no murmur, no gallops, no rubs, normal peripheral pulses, irregular, diminshed peripheral pulses, murmur present, II/IV, III/IV Respiratory: negative: CTAB, no wheezes, no rales, no ronchi, normal chest expansion, no tachypnea, normal percussion, rales, rhonchi, tachypneic, wheezes Hosp A/P (1) Pain in the abdomen Code(s): R10.9 - UNSPECIFIED ABDOMINAL PAIN Status: Acute (2) Alcohol abuse Code(s): F10.10 - ALCOHOL ABUSE, UNCOMPLICATED Status: Acute (3) Anemia due to blood loss Code(s): D50.0 - IRON DEFICIENCY ANEMIA SECONDARY TO BLOOD LOSS (CHRONIC) Status: Acute (4) GI bleeding Code(s): K92.2 - GASTROINTESTINAL HEMORRHAGE, UNSPECIFIED Status: Acute Qualifiers: (5) HTN (hypertension) Code(s): I10 - ESSENTIAL (PRIMARY) HYPERTENSION Status: Chronic Qualifiers: - Plan will continue to monitor hh, pt has no abdomen pain. pt on ppi.
[2020-03-28] MEDS ORDERED: Prevnar 13-Val Conj/PF 0.5 ML SYRINGE IM ONE (21:00)
[2020-03-29 06:08] LABS: #Basophils 0.1 thou/uL (0.0-0.2); #Eosinphils 0.2 thou/uL (0.0-0.7); #Lymphocytes 1.9 thou/uL (1.20-3.40); #Neutrophils 6.7 thou/uL (1.40-6.50); %Basophils 0.9 % (0.0-1.0); %Eosinophils 2.2 % (0.0-10.0); %Lymphocytes 19.4 % (21.0-51.0); %Monocytes 9.9 % (0.0-10.0); %Neutrophils 67.6 % (42.0-75.0); Hemoglobin 10.2 g/dL (14.0-18.0); Mean Corpuscular HGB CONC 31.5 g/dL (32.0-36.0); Mean Corpuscular Hemoglobin 26.2 pg (27.0-31.0); Mean Corpuscular Volume 83.2 fL (78.0-98.0); Platelet Count 359 thou/uL (130-400); Red Blood Cell (RBC) Count 3.87 mill/uL (4.70-6.10); White Blood Cell (WBC) Count 9.9 thou/uL (4.8-10.8)
[2020-03-29 06:29] LABS: Anion Gap 10 mmol/L (10-20); BUN (Urea Nitrogen) 10 mg/dL (8.4-25.7); Calc. Creatinine Clearance 95 mL/min (70-130); Calcium 8.3 mg/dL (7.8-10.44); Carbon Dioxide 23 mmol/L (23-31); Chloride 103 mmol/L (98-107); Estimated GFR-MDRD Greater than 90; Glucose 79 mg/dL (83-110); Potassium 3.2 mmol/L (3.5-5.1); Sodium 133 mmol/L (136-145)
[2020-03-29] MEDS: Pantoprazole 40 MG VIAL IVP SCH (07:46)
[2020-03-29 08:27] VITALS: BP 165/80; TEMP 98
[2020-03-29] MEDS ORDERED: Potassium Chloride 20 MEQ TAB PO SCH (09:15)
[2020-03-29] MEDS ORDERED: Prevnar 13-Val Conj/PF 0.5 ML SYRINGE IM ONE (11:15)
[2020-03-29 11:48] LABS: SARS-CoV-2 MS2 Positive; SARS-CoV-2 N Gene Negative; SARS-CoV-2 S Gene Negative; SARS-CoV-2 orf1ab Negative
--- NOTE | 2020-03-29 12:10 | PRG ---
DATE OF SERVICE: 03/29/2020 REASON FOR CONSULTATION: Midepigastric abdominal pain, hematemesis, recent history of duodenal ulceration. SUBJECTIVE: Overnight, the patient experienced no acute events or problems. This morning, he states that his abdominal pain is completely resolved and he has had no further episodes of nausea or vomiting since admission. He has been able to tolerate a clear liquid diet without difficulty. Currently, he denies any nausea, vomiting, fevers, chills, hematemesis, melena, hematochezia, dysphagia, or odynophagia. OBJECTIVE: VITAL SIGNS: Temperature 98, pulse 165/80, respiratory rate 18, saturating 98% on room air. GENERAL: The patient was lying in bed, in no acute distress. Alert and oriented x4. CARDIOVASCULAR: Regular rate and rhythm. RESPIRATORY: Clear to auscultation bilaterally. ABDOMEN: Normoactive bowel sounds. Soft, nontender, nondistended. EXTREMITIES: No cyanosis, clubbing, or edema. LABORATORY DATA: CBC with a white blood cell count of 9.9, hemoglobin 10.2, hematocrit 32.2, platelets 359. Chemistry with a sodium 133, potassium 3.2, chloride 103, CO2 of 23, BUN 10, creatinine 0.77, glucose 79. IMAGING DATA: No current GI imaging is available for review. ASSESSMENT AND PLAN: The patient is a 69-year-old male with past medical history of hypertension, chronic alcohol abuse, obesity, hyperlipidemia, atrial fibrillation, and a recent perforated duodenal ulceration with bleeding from that ulceration, now presenting with increased midepigastric abdominal pain and darker colored emesis concerning for hematemesis. Midepigastric abdominal pain/duodenal ulceration. The patient was discharged from the hospital in the end of January of 2020, after being diagnosed with a large duodenal ulceration within the duodenal bulb that did exhibit some microperforation on imaging, but did not undergo surgical intervention. Instead, upper endoscopy was performed with cauterization of the peripheral aspects of the ulceration secondary to oozing of blood with good hemostasis achieved. With the onset of midepigastric abdominal pain and possible hematemesis during this admission, it was initially concerning for rebleeding from this ulcer site. Imaging also showing thickening within the duodenum and the distal esophagus reflective of the upper endoscopy findings showing reflux esophagitis in the ulceration itself. However, since being admitted to the hospital, he has had complete resolution of his abdominal pain as well as his nausea and vomiting with more conservative type measures. Given the improvement of the findings on imaging, stabilization of his hemoglobin and hematocrit, and resolution of his hematemesis and/or epigastric abdominal pain, endoscopic evaluation is not indicated at this time. Recommendations: 1. Would continue to trend his hemoglobin and hematocrit and transfuse as necessary to maintain hemoglobin and hematocrit of 7/21. 2. Continue to monitor clinically for signs of active GI bleeding. 3. Would advance the patient's diet as tolerated today. 4. Would follow up on the COVID testing, and if negative, could potentially discharge the patient for outpatient followup. 5. Continue pantoprazole 40 mg b.i.d. 6. Would attempt to avoid any anticoagulation or NSAIDs while in the hospital. Given the resolution of the patient's admitting symptoms and stabilization of his hemoglobin and hematocrit at this time with lack of evidence of GI bleeding, the patient could be potentially discharged to home with followup in the outpatient clinic within 2 to 3 weeks. We will sign off at this time. Please call with any questions. Job ID: [id number]
--- NOTE | 2020-03-29 16:31 | DIS ---
DATE OF ADMISSION: 03/27/2020 DATE OF DISCHARGE: 03/29/2020 DISCHARGE DIAGNOSES: As of the following; 1. Nausea, vomiting, abdominal pain. 2. History of alcohol abuse. 3. History of gastrointestinal bleed secondary to duodenal ulcer. HOSPITAL COURSE: The patient is a 69-year-old male, who initially presented to the hospital with abdominal pain, nausea, and vomiting x1 day. He stated that he had some dark chocolate-appearing emesis, which concerned him given his previous history of GI bleed. He states that he not been drinking alcohol at all. He drinks non-alcoholic beverages. At this time, he came into the hospital. His H and H were monitored, they were stable. He was seen by GI. The patient has undergone a cauterization for duodenal ulcer in the past. The patient's hemoglobin was stable. His diet was advanced. He had no more nausea, vomiting, or abdominal pain. He was then discharged home. He will follow up with his primary care doctor and GI as needed. MEDICATIONS: 1. Norvasc 10 mg daily. 2. Hydralazine 100 mg b.i.d. 3. Protonix 40 mg twice a day. 4. Furosemide 20 mg daily. PHYSICAL EXAMINATION: VITAL SIGNS: Temperature of 98.0, heart rate 79, respiratory rate 18, oxygen saturation 98% on room air, and blood pressure 165/80. GENERAL: He is awake, alert, and oriented x3. Does not appear in any distress. CV: S1 and S2 present. No murmurs, rubs, or gallops. ABDOMEN: Soft and nontender. Bowel sounds present x2. Again, he will be discharged home. He will follow up with primary and also with GI as needed. Job ID: [id number]
--- NOTE | 2020-03-30 08:20 | PQF ---
CLINICAL DOCUMENTATION CLARIFICATION FORM: Dear : Poly Cason Date / Time: 03/30/2020 0885 Please exercise your independent, professional judgment in responding to the clarification form. Clinical indicators are provided on the bottom of this form for your review In your clinical opinion based on clinical findings below, can you please identify the etiology of GI bleeding if due to: Please check appropriate box(es): [ ] GERD with Esophagitis [ ] Ulcer of esophagus [ ] Duodenal ulcer [ ] AVM [ x ] Other diagnosis ___combination of duodenal ulcer and esophagitis_ [ ] Unable to determine Physician Signature: Date/Time: For continuity of documentation, please document condition throughout progress notes and discharge summary. Thank You. To be completed by CDI/Coding staff for physician review: Present Clinical Indicators - Signs / Symptoms / Labs Results and Location in Medical Record [X] Occult blood test- Negative Microbiology 03/27 [X] Temp 98.3, Pulse 100, Resp 18, BP 143/81 Vital signs 03/27 [X] complaining of diffuse abdominal discomfort that started yesterday H&P p1 03/27 Ventura PA-C [X] Reports having several episodes of vomiting bilious fluid today and became concerned when he saw dark appearing contents, which he states look like dark chocolate H&P p1 03/27 Ventura PA-C [X] Midepigastric abdominal pain, hematemesis, recent hx of duodenal ulceration GE consult p1 03/28 Dr Tucker [X] Differential diagnosis could include several acid reflux, gastritis with PUD, worsening of his duodenal ulceration, AV malformation GE consult p3 03/28 Dr Tucker Present Risk Factors Results and Location in Medical Record [X] 69 year-old Male H&P p1 03/27 Ventura PA-C [X] HTN H&P p2 03/27 Ventura PA-C [X] Hx of bleeding duodenal ulcer H&P p2 03/27 Ventura PA-C [X] Obesity H&P p2 03/27 Ventura PA-C [X] Heavy alcohol abuse H&P p2 03/27 Ventura PA-C [X] Esophagitis H&P p2 03/27 Ventura PA-C [X] Chews Tobacco ED Notes 03/27 [X] GERD Consult 03/28 Present Treatments Results and Location in Medical Record [X] IV Zofran 4 mg MAR 03/27 [X] IV Protonix 40 mg NOV 21 [X] IVF NS 1L NOV 21 [X] Occult blood test Microbiology 03/27 [X] GE consult Consult 03/28 Lance Denney [X] CT of abdomen Collected 03/27 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
== END 2020-03-29 13:44 | disposition home or self-care (01) | DRG 391 ==
LOC: ERS 15:34 → T4-B 20:15
PROVIDERS: ADMIT Internal Medicine; ATTEND Internal Medicine
PROC: 3E0234Z Introduction of Serum, Toxoid and Vaccine into Muscle, Percutaneous Approach (ICD-10-PCS; principal; 2020-03-27)
DX: K21.0 Gastro-esophageal reflux disease with esophagitis (principal); K26.4 Chronic or unspecified duodenal ulcer with hemorrhage; I48.20 Chronic atrial fibrillation, unspecified; D50.0 Iron deficiency anemia secondary to blood loss (chronic); Z11.59 Encounter for screening for other viral diseases; I10 Essential (primary) hypertension; F17.220 Nicotine dependence, chewing tobacco, uncomplicated; E78.5 Hyperlipidemia, unspecified; E66.9 Obesity, unspecified; Z60.2 Problems related to living alone; F10.10 Alcohol abuse, uncomplicated; Z88.0 Allergy status to penicillin; Z68.27 Body mass index [BMI] 27.0-27.9, adult; Z79.899 Other long term (current) drug therapy; Z23 Encounter for immunization
CPT/HCPCS: 36415; 74177; 80048; 80053; 81003; 81015; 82274; 83690; 83735; 84484; 85025; 85610; 85730; 86140; 86850; 86900; 86901; 87635; 90471; 90670; 96361; 96374; 96375; C9113; G0009; J2270; J2405; J2550; Q9967; U0003

== ENCOUNTER 2020-08-16 09:56 | Inpatient (IN) | payer MEDICARE ==
[2020-08-16 10:40] LABS: #Basophils 0.1 thou/uL (0.0-0.2); #Eosinphils 0.2 thou/uL (0.0-0.7); #Lymphocytes 0.9 thou/uL (1.20-3.40); #Monocytes 0.9 thou/uL (0.11-0.59); #Neutrophils 6.4 thou/uL (1.40-6.50); %Basophils 0.7 % (0.0-1.0); %Eosinophils 2.2 % (0.0-10.0); %Lymphocytes 10.1 % (21.0-51.0); %Monocytes 10.8 % (0.0-10.0); %Neutrophils 76.2 % (42.0-75.0); Mean Corpuscular HGB CONC 29.6 g/dL (32.0-36.0); Mean Corpuscular Hemoglobin 20.2 pg (27.0-31.0); Mean Corpuscular Volume 68.2 fL (78.0-98.0); Mean Platelet Volume 7.1 fL (7.4-10.4); Platelet Count 507 thou/uL (130-400); RBC Distribution Width 16.6 % (11.5-14.5); Red Blood Cell (RBC) Count 4.44 mill/uL (4.70-6.10); White Blood Cell (WBC) Count 8.5 thou/uL (4.8-10.8)
--- NOTE | 2020-08-16 10:53 | RAD ---
PORTABLE CHEST: Date: 08/16/2020 PROVIDED CLINICAL HISTORY: Shortness of breath. FINDINGS: No comparisons. The cardiac silhouette appears enlarged, which may be at least partially on the basis of portable jonathan hnique. Vascular calcification is noted involving the aortic arch. There is left basilar pleural and/ or parenchymal opacity. The right lung appears clear. There is no evidence for pneumothorax. IMPRESSION: Left basilar pleural and/or parenchymal opacity. Correlate with concerns for pneumonia. POS: [facility]
[2020-08-16 10:57] LABS: ALT (SGPT) 11 U/L (8-55); AST (SGOT) 15 U/L (5-34); Albumin 3.7 g/dL (3.4-4.8); Alkaline Phosphatase 98 U/L (40-110); Anion Gap 13 mmol/L (10-20); BUN (Urea Nitrogen) 8 mg/dL (8.4-25.7); Bilirubin, Total 0.6 mg/dL (0.2-1.2); Calc. Creatinine Clearance 0 mL/min (70-130); Calcium 8.8 mg/dL (7.8-10.44); Carbon Dioxide 25 mmol/L (23-31); Chloride 99 mmol/L (98-107); Estimated GFR-MDRD 88; Globulin 3.8 g/dL (2.4-3.5); Glucose 115 mg/dL (83-110); Potassium 3.7 mmol/L (3.5-5.1); Protein, Total 7.5 g/dL (5.8-8.1); Sodium 133 mmol/L (136-145)
[2020-08-16 11:04] LABS: Hypochromia MODERATE=16-30 cells (100X) (0-5/hpf); MDiff Complete? YES; Microcytosis MODERATE=15-30 cells (100X) (0-5/hpf); Ovalocytes SLIGHT = 2-5 cells (100X) (0-1/hpf); Platelet Morphology Comment Appears Increased; Polychromasia SLIGHT = 2-3 cells (100X) (0-2/hpf); Reflex for Review?? YES
[2020-08-16] MEDS ORDERED: Senokot S 8.6-50 MG TAB PO PRN (11:26)
[2020-08-16] MEDS ORDERED: Bisacodyl 10 MG SUPP PR PRN (11:26)
[2020-08-16] MEDS ORDERED: Guaifenesin DM 100-10/5 ML UDCUP PO PRN (11:26)
[2020-08-16] MEDS ORDERED: Ondansetron PF 4 MG/2 ML Vial IVP PRN (11:26)
[2020-08-16] MEDS ORDERED: Acetaminophen 325 MG TAB PO PRN (11:26)
--- NOTE | 2020-08-16 12:18 | HP ---
REASON FOR ADMISSION: CHF exacerbation. HISTORY OF PRESENTING ILLNESS: The patient gives history of shortness of breath from last week and a half now. He has had progressive increase in lower extremity swelling from last 1 week. The patient also mentions that he initially thought it was a chest cold. No fever as such. He normally ambulates by himself. He has a habit of keeping three pillows underneath his head. No complaints of chest pain or palpitation. He states he is compliant with diet and medications. His two months back and states he has adequate help at home. PAST MEDICAL AND SURGICAL HISTORY: History of hypertension; upper GI bleed in the month of January-February due to large duodenal ulcer; obesity; possible COPD; history of chronic atrial fibrillation; prior history of heavy alcohol usage, quit three months back; dyslipidemia; upper endoscopy with cauterization of duodenal ulcer. PERSONAL HISTORY: Quit drinking alcohol 3 months back prior to which he was drinking 3-4 beers daily. He does not smoke. No history of drug usage. He is currently living alone. His two months back. The patient has a living daughter. FAMILY HISTORY: Mother at the age of 88 from natural causes. Father in his 60s, he had only one kidney, he apparently in his sleep from unknown cause. ALLERGIES: ALLERGIC TO PENICILLIN. CURRENT MEDICATIONS: 1. The patient is on Norvasc 10 mg p.o. daily. 2. Protonix 40 mg twice daily. 3. Hydralazine 100 mg twice daily. 4. Lasix 20 mg daily. CODE STATUS: Full. Power of city attorney is his daughter. REVIEW OF SYSTEMS: CONSTITUTIONAL: Negative for weight loss or gain, ability to conduct usual activities. SKIN: Negative for rash, itching. EYES: Negative for double vision, pain. ENT/MOUTH: Negative for nose bleeding, neck stiffness, pain, tenderness. CARDIOVASCULAR: Negative for palpitations, dyspnea on exertion, orthopnea. RESPIRATORY: Negative for shortness of breath, wheezing, cough, hemoptysis, fever or night sweats. GASTROINTESTINAL: Negative for poor appetite, abdominal pain, heartburn, nausea, vomiting, constipation, or diarrhea. GENITOURINARY: Negative for urgency, frequency, dysuria, nocturia. MUSCULOSKELETAL: Negative for pain, swelling. NEUROLOGIC/PSYCHIATRIC: Negative for anxiety, depression. ALLERGY/IMMUNOLOGIC: Negative for skin rash, bleeding tendency. PHYSICAL EXAMINATION: GENERAL: The patient is a 69-year-old male, who is currently not in any acute distress. VITAL SIGNS: Blood pressure 168/84, pulse 86 per minute, respiratory rate 22 per minute, temperature 97.4 degrees Fahrenheit, and saturating 100% on room air. NECK: Supple. There is elevated JVD. HEENT: Eyes; extraocular muscles intact. Pupils reacting to light. Oral cavity, mucous membranes are dry. No exudates or congestion. CARDIOVASCULAR: S1, S2 heard. Irregular rhythm. RESPIRATORY: Air entry 1+ bilateral. There are rales plus in the infrascapular area, rhonchi plus. No wheezes. ABDOMEN: Soft. Bowel sounds heard. No tenderness, rigidity, or guarding. EXTREMITIES: There is 2+ peripheral edema. No calf tenderness. The patient appears to have varicosities in both lower extremities. Peripheral pulses are 1+ bilateral. No ischemic ulcers or gangrene. CENTRAL NERVOUS SYSTEM: No gross focal motor deficits noted. The patient is alert, awake, and oriented well. PSYCHIATRIC: The patient's mood is euthymic. No hallucinations or delusions. LABORATORY DATA: White count of 8, hemoglobin and hematocrit 9 and 30, platelet count 507 with 76% neutrophils, MCV is 68. BUN is 8, creatinine 0.8, serum bicarb 25, serum glucose 115, BNP 286. First set of cardiac enzymes negative. Albumin is 3.7. Chest x-ray shows left-sided pleural effusion with possible infiltrate. There are no prior x-rays to compare the same for now. EKG done shows atrial fibrillation, which is rate controlled with frequent PVCs at 78 beats per minute. CLINICAL IMPRESSION AND PLAN: The patient will be admitted to telemetry for acute congestive heart failure exacerbation. His prior echo showed diastolic dysfunction. He has increasing lower extremity edema with orthopnea at present. He will be on Lasix 40 mg IV at 6 a.m. and 2 p.m. The patient has never had cardiac workup including angiograms in the past. It is also mentioned that he had what appears to be a head cold kind of upper respiratory infection a week back and we will obtain COVID-19 PCR test as well. If the test is negative, precautions may be discontinued. He will be on low-dose aspirin, small dose of Coreg and Cozaar. We will continue his Protonix as before. We will consult Dr. Reyes, his manager drilling. The patient likely might need formal angiogram if his COVID is negative. Job ID: [id number]
[2020-08-16] MEDS ORDERED: Furosemide 40 MG/4 ML VIAL ONE (14:33)
[2020-08-16] MEDS: Furosemide 40 MG/4 ML VIAL SLOW IVP SCH (14:40)
[2020-08-16 14:52] LABS: Troponin I 0.022 ng/mL (< 0.028)
[2020-08-16 16:30] LABS: SARS-CoV-2 MS2 Positive; SARS-CoV-2 N Gene Negative; SARS-CoV-2 S Gene Negative; SARS-CoV-2 by NAA Not Detected (NotDetected); SARS-CoV-2 orf1ab Negative
[2020-08-16 17:28] LABS: Troponin I Less than 0.010 ng/mL (< 0.028)
[2020-08-16 18:07] VITALS: BMI 31.1
[2020-08-16] MEDS: Carvedilol 3.125 MG TAB PO SCH (18:51)
[2020-08-17] MEDS: Furosemide 40 MG/4 ML VIAL SLOW IVP SCH ×2 (04:46→15:37)
[2020-08-17 04:54] LABS: #Basophils 0.1 thou/uL (0.0-0.2); #Eosinphils 0.2 thou/uL (0.0-0.7); #Lymphocytes 1.1 thou/uL (1.20-3.40); #Neutrophils 5.5 thou/uL (1.40-6.50); %Basophils 0.8 % (0.0-1.0); %Eosinophils 2.7 % (0.0-10.0); %Lymphocytes 13.6 % (21.0-51.0); %Monocytes 12.3 % (0.0-10.0); %Neutrophils 70.6 % (42.0-75.0); Hemoglobin 8.3 g/dL (14.0-18.0); Mean Corpuscular HGB CONC 29.5 g/dL (32.0-36.0); Mean Corpuscular Hemoglobin 20.3 pg (27.0-31.0); Mean Corpuscular Volume 68.6 fL (78.0-98.0); Mean Platelet Volume 7.2 fL (7.4-10.4); Platelet Count 469 thou/uL (130-400); RBC Distribution Width 16.5 % (11.5-14.5); Red Blood Cell (RBC) Count 4.08 mill/uL (4.70-6.10); White Blood Cell (WBC) Count 7.8 thou/uL (4.8-10.8)
[2020-08-17 05:16] LABS: Anion Gap 15 mmol/L (10-20); BUN (Urea Nitrogen) 9 mg/dL (8.4-25.7); Calc. Creatinine Clearance 93 mL/min (70-130); Calcium 8.5 mg/dL (7.8-10.44); Carbon Dioxide 25 mmol/L (23-31); Chloride 100 mmol/L (98-107); Estimated GFR-MDRD 83; Glucose 89 mg/dL (83-110); Potassium 3.7 mmol/L (3.5-5.1); Sodium 136 mmol/L (136-145)
[2020-08-17] MEDS: Aspirin Chewable 81 MG TAB PO SCH ×2 (11:59→12:14)
[2020-08-17] MEDS: Enoxaparin Sodium 40 MG/0.4 ML SYRINGE SC SCH ×2 (11:59→12:14)
[2020-08-17] MEDS: Carvedilol 3.125 MG TAB PO SCH ×2 (11:59→17:46)
[2020-08-17] MEDS: Losartan 25 MG TAB PO SCH (11:59)
--- NOTE | 2020-08-17 16:39 | PDOC.HOSPP ---
- Subjective Encounter Date: 08/17/20 Subjective: Patient is complaining of shortness of breath and wheezing. - Objective Vital Signs & Weight: Vital Signs (12 hours) Temp Pulse Pulse Pulse Resp BP BP 08/17/20 15:38 98.4 F 69 18 08/17/20 14:45 133/80 08/17/20 11:57 97.8 F 80 18 08/17/20 11:00 08/17/20 10:01 76 88 153/84 H 172/78 H 08/17/20 07:52 97.7 F 68 18 08/17/20 07:50 BP Pulse Ox 08/17/20 15:38 127/65 97 08/17/20 14:45 08/17/20 11:57 154/68 H 99 08/17/20 11:00 94 L 08/17/20 10:01 08/17/20 07:52 145/66 H 94 L 08/17/20 07:50 99 Weight Weight 192 lb 12.8 oz I&O: 08/16/20 08/17/20 08/18/20 06:59 06:59 06:59 Intake Total 420 Output Total 500 Balance -80 Result Diagrams: 08/17/20 03:58 08/17/20 03:58 Hospitalist ROS - Medication Medications: Active Medications Generic Name Dose Route Start Last Admin Trade Name Freq PRN Reason Stop Dose Admin Aspirin 81 mg 08/17/20 09:00 08/17/20 12:14 Aspirin Chewable 81 Mg Tab PO Not Given DAILY LASHAY Carvedilol 3.125 mg 08/16/20 17:00 08/17/20 11:59 Carvedilol 3.125 Mg Tab PO 3.125 mg BID- LASHAY Administration Enoxaparin Sodium 40 mg 08/17/20 09:00 08/17/20 12:14 Enoxaparin Sodium 40 Mg/0.4 Ml Syringe SC Not Given 0900 LASHAY Losartan Potassium 50 mg 08/17/20 09:00 08/17/20 11:59 Losartan 25 Mg Tab PO 50 mg DAILY LASHAY Administration Pantoprazole Sodium 40 mg 08/16/20 21:00 08/17/20 11:59 Pantoprazole 40 Mg Tab PO 40 mg BID LASHAY Administration - Exam General Appearance: awake alert ENT: normocephalic atraumatic Neck: supple, no JVD Heart: RRR Respiratory: normal chest expansion, no tachypnea Gastrointestinal: soft Extremities: no cyanosis Neurological: cranial nerve grossly intact Hosp A/P (1) Left lower lobe pneumonia Code(s): J18.9 - PNEUMONIA, UNSPECIFIED ORGANISM Status: Acute (2) HTN (hypertension) Code(s): I10 - ESSENTIAL (PRIMARY) HYPERTENSION Status: Chronic Qualifiers: (3) Hyperlipidemia Code(s): E78.5 - HYPERLIPIDEMIA, UNSPECIFIED Status: Chronic Qualifiers: Hyperlipidemia type: unspecified Qualified Code(s): E78.5 - Hyperlipidemia, unspecified - Plan Pneumonia with some component of bronchitis. Start nebulizer treatments, antibiotics, corticosteroids. Monitor his response over the next 24 hours.
[2020-08-17] MEDS ORDERED: predniSONE 20 MG TAB PO SCH (16:45)
[2020-08-18] MEDS ORDERED: Furosemide 40 MG TAB PO SCH (07:30)
[2020-08-18] MEDS ORDERED: predniSONE 20 MG TAB PO SCH (08:00)
[2020-08-18] MEDS: Losartan 25 MG TAB PO SCH ×2 (09:18→09:19)
[2020-08-18] MEDS: Carvedilol 3.125 MG TAB PO SCH (09:20)
[2020-08-18] MEDS: Enoxaparin Sodium 40 MG/0.4 ML SYRINGE SC SCH (09:21)
[2020-08-18] MEDS: Aspirin Chewable 81 MG TAB PO SCH (09:21)
--- NOTE | 2020-08-18 15:02 | PDOC.DS.DS ---
Provider - Provider Date of Admission: 08/16/20 12:27 Date of Discharge: 08/18/20 Admitting Provider: Yuri Owens MD Primary Care Physician: NO PCP PROVIDER Course - Hospital Course Hospital Course: The patient is a 69-year-old male with past medical history of hypertension, atrial fibrillation, alcoholism, and possible COPD who presented to the hospital with complaints of shortness of breath and cough in addition to wheezing for the past week. He was admitted to the hospital and managed with nebulizer treatments, antibiotics, and corticosteroids which led to resolution of his symptoms within 24 hours. Resuscitation Status: 08/16/20 11:22 Resuscitation Status Routine Resuscitation Status: FULL: Full Resuscitation Discussed with: POA: daughter - Labs Lab Results: 08/17/20 03:58 08/17/20 03:58 Abnormal Lab Results - Last 48 hrs 08/17/20 03:58: RBC 4.08 L, Hgb 8.3 L, Hct 28.0 L, MCV 68.6 L, MCH 20.3 L, MCHC 29.5 L, RDW 16.5 H, Plt Count 469 H, MPV 7.2 L, Lymphocytes % 13.6 L, Monocytes % 12.3 H, Lymphocytes # 1.1 L, Monocytes # 1.0 H - Physical Exam Vitals: Vital Signs (12 hours) Temp Pulse Pulse Pulse Resp BP BP 08/18/20 13:54 72 14 08/18/20 12:25 97.4 F L 72 18 08/18/20 10:59 77 16 08/18/20 10:00 88 94 140/69 152/71 H 08/18/20 08:18 76 16 08/18/20 07:07 97.8 F 76 16 08/18/20 07:05 08/18/20 04:00 98.0 F 70 18 BP Pulse Ox 08/18/20 13:54 99 08/18/20 12:25 148/67 H 99 08/18/20 10:59 98 08/18/20 10:00 08/18/20 08:18 99 08/18/20 07:07 140/67 98 08/18/20 07:05 98 08/18/20 04:00 135/80 94 L Weight Weight 189 lb 14.4 oz Physical Exam: The patient was seen and examined on the day of discharge. Problem - Problem (1) Left lower lobe pneumonia Code(s): J18.9 - PNEUMONIA, UNSPECIFIED ORGANISM Status: Acute (2) HTN (hypertension) Code(s): I10 - ESSENTIAL (PRIMARY) HYPERTENSION Status: Chronic Qualifiers: (3) Hyperlipidemia Code(s): E78.5 - HYPERLIPIDEMIA, UNSPECIFIED Status: Chronic Qualifiers: Hyperlipidemia type: unspecified Qualified Code(s): E78.5 - Hyperlipidemia, unspecified - Time spent with Patient (mins): 31 Plan - Discharge Medications Prescriptions: Albuterol Sulfate [Proair HFA] 1 puff INH Q4HR PRN #1 inh PRN Reason: Sob &/Or Wheezing Levofloxacin [Levaquin] 500 mg PO DAILY #4 tablet predniSONE 40 mg PO QAM-WM #10 tab Home Medications: Medication Instructions Recorded Confirmed Type Amlodipine [Norvasc] 10 mg PO DAILY 01/24/20 08/16/20 History hydrALAZINE HCl 100 mg PO BID 01/24/20 08/16/20 History Furosemide 20 mg DAILY 02/11/20 08/16/20 History Pantoprazole [Protonix] 40 mg PO BID #60 tab 02/17/20 08/16/20 Rx Albuterol Sulfate [Proair HFA] 1 puff INH Q4HR PRN #1 inh 08/18/20 Rx Levofloxacin [Levaquin] 500 mg PO DAILY #4 tablet 08/18/20 Rx predniSONE 40 mg PO QAM-WM #10 tab 08/18/20 Rx Allergies: Penicillins Allergy (Verified 03/27/20 21:56) - Follow up Plan Referrals: Cardiac Rehab - [facility] [Outside] - 7 Days (Your doctor has ordered outpatient cardiac rehab for you to begin within 1-2 weeks after you go home from the [facility]. The location nearest to you is the [facility]. We will call you in 3-5 days to get you scheduled for your evaluation. If you do not receive a call, please reach out to us at [phone] and request an appointment.) PROVIDER,NO PCP [Primary Care Provider] - (pt will call to find a new PCP!) Disposition: HOME Quality - Care Measures CORE MEASURES:: N/A
[2020-08-18 16:35] VITALS: BP 142/62; TEMP 97.5
--- NOTE | 2020-08-19 07:33 | PQF ---
CLINICAL DOCUMENTATION CLARIFICATION FORM: Dear : Chris Enriquez Date / Time: 08/19/20 7186 Please exercise your independent, professional judgment in responding to the clarification form. Clinical indicators are provided on the bottom of this form for your review In your clinical opinion based on clinical findings below, can you please specify type if CHF exacerbation if: Please check appropriate box(es): [ ] Systolic / HFrEF [ ] Diastolic / HFpEF [ ] Combined Systolic / Diastolic [ > ] Other diagnosis, please specify _NO CHF. PT admitted for Pneumonia. please refer to JULIAN singleton [ ] Unable to determine Physician Signature: Date/Time: For continuity of documentation, please document condition throughout progress notes and discharge summary. Thank You. To be completed by CDI/Coding staff for physician review: Present Clinical Indicators - Signs / Symptoms / Labs Results and Location in Medical Record [X] BNP 286.3, troponin 0.015; 0.022 Laboratory 08/16 [X] Chest X-ray: There is left basilar pleural and parechymal opacity Imaging 08/16 Dr Abraham [X] BP 148/59, Pulse 75, Resp 20, Temp 98.4 Vital signs 08/16 [X] gives hx of SOB form last week and half now H&P p1 08/16 Dr Owens [X] Admitted for Acute congestive heart failure exacerbation H&P p2 08/16 Dr Owens [X] his prior echo showed diastolic dysfunction H&P p2 08/16 Dr Owens [X] JVD HP 08/16 [X] Peripheral edema HP 08/16 Present Risk Factors Results and Location in Medical Record [X] 69 year-old Male H&P p1 08/16 Dr Owens [X] HTN H&P p1 08/16 Dr Owens [X] Afib ED Notes 08/16 [X] Chewing tobacco ED Notes 08/16 [X] HLD PN 08/17 [X] Obesity HP 08/16 Present Treatments Results and Location in Medical Record [X] IV Lasix 40 mg MAR 08/16 [X] Coreg 3.125 mg oral NOV 25 [X] Aspirin 81 mg oral NOV 25 [X] Admited with telemetry H&P p2 08/16 Dr Owens CDS/Hydrator Signature: Alana Cerda Phone #: [phone] Date/Time: 08/19/2020 0733 This is a permanent part of the Medical Record [facility]
== END 2020-08-18 16:37 | disposition home or self-care (01) | DRG 194 ==
LOC: ERS 09:56 → ERHOLD 12:27 → 2NO 17:54
PROVIDERS: ADMIT Internal Medicine; ATTEND Internal Medicine
DX: J18.9 Pneumonia, unspecified organism (principal); J44.0 Chronic obstructive pulmonary disease with (acute) lower respiratory infection; Z20.828 Contact with and (suspected) exposure to other viral communicable diseases; E78.5 Hyperlipidemia, unspecified; I10 Essential (primary) hypertension; E66.9 Obesity, unspecified; I48.91 Unspecified atrial fibrillation; Z88.0 Allergy status to penicillin; Z68.30 Body mass index [BMI] 30.0-30.9, adult; Z79.899 Other long term (current) drug therapy; Z87.11 Personal history of peptic ulcer disease
CPT/HCPCS: 36415; 71045; 80048; 80053; 83880; 84145; 84443; 84484; 85025; 85060; 87635; 93005; 93798; 94640; 97139; J1650; J1940; J1956; J7512; J7620; U0003

== ENCOUNTER 2020-11-01 13:24 | Inpatient (IN) | payer MEDICARE ==
[2020-11-01] MEDS ORDERED: Albuterol Sulfate 1.25 MG/3 ML NEB ONE (14:20)
[2020-11-01] MEDS ORDERED: PROVENTIL INHALER 6.7 G (200 INHALATIONS) ONE (14:20)
[2020-11-01] MEDS ORDERED: Albuterol Sulfate 2.5 mg/0.5 ml Neb ONE (14:21)
[2020-11-01 14:59] LABS: #Basophils 0.1 thou/uL (0.0-0.2); #Eosinphils 0.1 thou/uL (0.0-0.7); #Lymphocytes 1.1 thou/uL (1.20-3.40); #Monocytes 1.2 thou/uL (0.11-0.59); #Neutrophils 9.7 thou/uL (1.40-6.50); %Basophils 0.7 % (0.0-1.0); %Eosinophils 0.9 % (0.0-10.0); %Lymphocytes 8.9 % (21.0-51.0); %Monocytes 9.7 % (0.0-10.0); %Neutrophils 79.7 % (42.0-75.0); Hemoglobin 8.9 g/dL (14.0-18.0); Mean Corpuscular HGB CONC 28.4 g/dL (32.0-36.0); Mean Corpuscular Hemoglobin 18.7 pg (27.0-31.0); Mean Platelet Volume 9.7 fL (7.4-10.4); Platelet Count 420 thou/uL (130-400); RBC Distribution Width 18.5 % (11.5-14.5); Red Blood Cell (RBC) Count 4.78 mill/uL (4.70-6.10); White Blood Cell (WBC) Count 12.1 thou/uL (4.8-10.8)
[2020-11-01] MEDS ORDERED: methylPREDNISolone Sod Succ/PF 125 MG/2 ML VIAL ONE ×2 (15:03→23:24)
[2020-11-01 15:15] LABS: Hypochromia MODERATE=16-30 cells (100X) (0-5/hpf); MDiff Complete? YES; Microcytosis MODERATE=15-30 cells (100X) (0-5/hpf); Platelet Morphology Comment Appears Increased; Polychromasia SLIGHT = 2-3 cells (100X) (0-2/hpf); Reflex for Review?? NO
[2020-11-01] MEDS ORDERED: Albuterol 200 PUFF (6.7GM INHALER) INH SCH (15:15)
[2020-11-01 15:16] LABS: ALT (SGPT) 12 U/L (8-55); AST (SGOT) 19 U/L (5-34); Albumin 4.1 g/dL (3.4-4.8); Alkaline Phosphatase 107 U/L (40-110); Anion Gap 18 mmol/L (10-20); BUN (Urea Nitrogen) 9 mg/dL (8.4-25.7); Calc. Creatinine Clearance 0 mL/min (70-130); Carbon Dioxide 20 mmol/L (23-31); Cardiac Risk 3.5 (Less than 4.5); Chloride 100 mmol/L (98-107); Cholesterol 166 mg/dl (< 200 Desired); Globulin 3.8 g/dL (2.4-3.5); Glucose 104 mg/dL (83-110); HDL Cholesterol 47 mg/dL (>60 Neg Risk); LDL Cholesterol, Calculated 110 mg/dL; Magnesium 1.9 mg/dL (1.6-2.6); Potassium 3.8 mmol/L (3.5-5.1); Protein, Total 7.9 g/dL (5.8-8.1); Sodium 134 mmol/L (136-145); Triglycerides 44 mg/dL (Less than 150)
[2020-11-01 15:29] LABS: Lactic Acid 1.2 mmol/L (0.5-2.2)
[2020-11-01 15:42] LABS: SARS-CoV-2 NAA Rapid Test Not Detected (NotDetected)
[2020-11-01] MEDS ORDERED: Albuterol 200 PUFF (6.7GM INHALER) ONE (15:50)
[2020-11-01] MEDS ORDERED: Cefepime 2 GM VIAL ONE (15:50)
--- NOTE | 2020-11-01 16:31 | PDOC.HHP ---
Hospitalist HPI shortness of breath and wheezing History of Present Illness: Patient is a 70 year old male with a PMH of HTN, HLD, GI bleed secondary to a large duodenal ulcer & H. pylori in January 2020, and a recent hospitalization for pneumonia 6 weeks ago. He returns to the hospital complaining of a shortness of breath and wheezing ongoing for the past few days. He has poor exercise tolerance due to these symptoms. He denies any fever, chills, or hemoptysis. He also denies chest pain or lower extremity edema. Patient states that the recent cold weather in [place] has exacerbated his symptoms, and it was even worse when the electricity was being cut off on the day of admission for roughly 10 years. He has no history of COPD. Vehemently denies history of tobacco smoking. He reports a family history of lung cancer in sister who from it. Chart review reveals he was indeed hospitalized Aug 2020 for LLL PNA and there was suspicious for COPD as well. ED Course: Patient arrived in the ER alert and oriented Found to have rapid afib There is suspicion for sepsis secondary to RML/RLL PNA Allergies/Adverse Reactions: Allergy/AdvReac Type Severity Reaction Status Date / Time Penicillins Allergy Verified 03/27/20 21:56 Home Medications: Medication Instructions Recorded Confirmed Type Amlodipine [Norvasc] 10 mg PO DAILY 01/24/20 08/16/20 History hydrALAZINE HCl 100 mg PO BID 01/24/20 08/16/20 History Furosemide 20 mg DAILY 02/11/20 08/16/20 History Pantoprazole [Protonix] 40 mg PO BID #60 tab 02/17/20 08/16/20 Rx Albuterol Sulfate [Proair HFA] 1 puff INH Q4HR PRN #1 inh 08/18/20 Rx Levofloxacin [Levaquin] 500 mg PO DAILY #4 tablet 08/18/20 Rx predniSONE 40 mg PO QAM-WM #10 tab 08/18/20 Rx Past History: PMHx: PSHx: FHx: Social: Hospitalist Exam General - other findings: in mild respiratory distress, poor dentition Eye: anicteric sclera Eye - other findings: EOMi ENT: normocephalic atraumatic Neck: supple Respiratory: wheezes Respiratory - other findings: End expiratory wheezing Gastrointestinal: soft, non-tender, non-distended, normal bowel sounds Extremities: no edema Neurological: cranial nerve grossly intact Psychiatric: normal affect, normal behavior Hospitalist Results Result Diagrams: 11/01/20 14:37 11/01/20 14:37 Lab results: Laboratory Last Values WBC 12.1 thou/uL (4.8-10.8) H 11/01/20 14:37 RBC 4.78 mill/uL (4.70-6.10) 11/01/20 14:37 Hgb 8.9 g/dL (14.0-18.0) L 11/01/20 14:37 Hct 31.5 % (42.0-52.0) L 11/01/20 14:37 MCV 66.0 fL (78.0-98.0) L 11/01/20 14:37 MCH 18.7 pg (27.0-31.0) L 11/01/20 14:37 MCHC 28.4 g/dL (32.0-36.0) L 11/01/20 14:37 RDW 18.5 % (11.5-14.5) H 11/01/20 14:37 Plt Count 420 thou/uL (130-400) H 11/01/20 14:37 MPV 9.7 fL (7.4-10.4) 11/01/20 14:37 Neutrophils % 79.7 % (42.0-75.0) H 11/01/20 14:37 Neutrophils % (Manual) Not Reportable 11/01/20 14:37 Lymphocytes % 8.9 % (21.0-51.0) L 11/01/20 14:37 Monocytes % 9.7 % (0.0-10.0) 11/01/20 14:37 Eosinophils % 0.9 % (0.0-10.0) 11/01/20 14:37 Basophils % 0.7 % (0.0-1.0) 11/01/20 14:37 Neutrophils # 9.7 thou/uL (1.40-6.50) H 11/01/20 14:37 Lymphocytes # 1.1 thou/uL (1.20-3.40) L 11/01/20 14:37 Monocytes # 1.2 thou/uL (0.11-0.59) H 11/01/20 14:37 Eosinophils # 0.1 thou/uL (0.0-0.7) 11/01/20 14:37 Basophils # 0.1 thou/uL (0.0-0.2) 11/01/20 14:37 Hypochromia MODERATE=16-30 cells (100X) (0-5/hpf) H 11/01/20 14:37 Plt Morphology Comment Appears Increased H 11/01/20 14:37 Polychromasia SLIGHT = 2-3 cells (100X) (0-2/hpf) 11/01/20 14:37 Microcytosis MODERATE=15-30 cells (100X) (0-5/hpf) H 11/01/20 14:37 Sodium 134 mmol/L (136-145) L 11/01/20 14:37 Potassium 3.8 mmol/L (3.5-5.1) 11/01/20 14:37 Chloride 100 mmol/L (98-107) 11/01/20 14:37 Carbon Dioxide 20 mmol/L (23-31) L 11/01/20 14:37 Anion Gap 18 mmol/L (10-20) 11/01/20 14:37 BUN 9 mg/dL (8.4-25.7) 11/01/20 14:37 Creatinine 0.87 mg/dL (0.7-1.3) 11/01/20 14:37 Estimated GFR (MDRD) 86 11/01/20 14:37 Glucose 104 mg/dL (83-110) 11/01/20 14:37 Lactic Acid 1.2 mmol/L (0.5-2.2) 11/01/20 15:00 Calcium 9.0 mg/dL (7.8-10.44) 11/01/20 14:37 Magnesium 1.9 mg/dL (1.6-2.6) 11/01/20 14:37 Total Bilirubin 1.0 mg/dL (0.2-1.2) 11/01/20 14:37 AST 19 U/L (5-34) 11/01/20 14:37 ALT 12 U/L (8-55) 11/01/20 14:37 Alkaline Phosphatase 107 U/L (40-110) 11/01/20 14:37 Troponin I 0.021 ng/mL (< 0.028) 11/01/20 14:37 B-Natriuretic Peptide 380.4 pg/mL (0-100) H 11/01/20 14:37 Serum Total Protein 7.9 g/dL (5.8-8.1) 11/01/20 14:37 Albumin 4.1 g/dL (3.4-4.8) 11/01/20 14:37 Globulin 3.8 g/dL (2.4-3.5) H 11/01/20 14:37 Albumin/Globulin Ratio 1.1 g/dL (1.2-2.2) L 11/01/20 14:37 Triglycerides 44 mg/dL (Less than 150) 11/01/20 14:37 Cholesterol 166 mg/dl (< 200 Desired) 11/01/20 14:37 LDL Cholesterol, Calc 110 mg/dL 11/01/20 14:37 HDL Cholesterol 47 mg/dL (>60 Neg Risk) 11/01/20 14:37 Heart Disease Risk Ratio 3.5 (Less than 4.5) 11/01/20 14:37 Influenza A RNA INAAT Not Detected (NotDetected) 11/01/20 14:37 Influenza B RNA INAAT Not Detected (NotDetected) 11/01/20 14:37 SARS-CoV-2 Rap RNA(RT-PCR) Not Detected (NotDetected) 11/01/20 14:37 Hospitalist H&P A/P (1) Pneumonia Code(s): J18.9 - PNEUMONIA, UNSPECIFIED ORGANISM Status: Acute (2) COPD (chronic obstructive pulmonary disease) Status: Acute (3) Reflux esophagitis Code(s): K21.0 - GASTRO-ESOPHAGEAL REFLUX DISEASE WITH ESOPHAG * DO NOT USE * Status: Acute (4) HTN (hypertension) Code(s): I10 - ESSENTIAL (PRIMARY) HYPERTENSION Status: Chronic Qualifiers: (5) Hyperlipidemia Code(s): E78.5 - HYPERLIPIDEMIA, UNSPECIFIED Status: Chronic Qualifiers: Hyperlipidemia type: unspecified Qualified Code(s): E78.5 - Hyperlipidemia, unspecified Plan: Assessment Patient is a 70 year old male with possible hx of COPD readmitted with pneumonia after he presented with shortness of breath and wheezing. He probably has un diagnosed COPD and appears to be in acute exacerbation. Meets criteria for severe sepsis as evidenced of rapid atrial fibrillation. He received cefepime, solumedrol and nebulizer therapy. He tested negative for influenza and COVID 19. Hospital course was complicated by rapid atrial fibrillation, which responded to IVF challenge only. Severe sepsis PNA COPD exacerbation Rapid atrial fbrillation HTN HLD PUD 2/2 H. pylori PLAN: Admit inpatient with telemetry Start levofloxacin along with solumedrol PRN DuoNebs ordered as well Follow up sputum, blood and urine cultures 2-D echo, TSH and urine toxicology ordered for afib Start patient on coreg for rate control PPI for GI ppx Patient will need more than 2 midnights
--- NOTE | 2020-11-01 17:17 | RAD ---
CHEST 1 VIEW: Date: 11/01/2020 HISTORY: Difficulty breathing. COMPARISON: Radiograph dated 08/16/2020. FINDINGS: Heart size is enlarged. Old left-sided rib fractures. Moderate left layering effusion. Abnormal left perihilar opacity. IMPRESSION: 1. Cardiomegaly with moderate layering left effusion. 2. Old left-sided rib fractures. 3. Abnormal left perihilar opacity. Nonemergent follow-up chest CT recommended. POS: HOME
[2020-11-01] MEDS ORDERED: Azithromycin 500 MG in Sodium Chloride 0.9% 250 ML 250 ML IVPB ONE (18:15)
--- NOTE | 2020-11-01 19:25 | CT ---
CT angiogram chest with IV contrast and 3-D imaging HISTORY: Dyspnea. Chest pain. FINDINGS: There is good contrast opacification of pulmonary arteries and thoracic aorta with normal b ranching of the great vessels at the aortic arch. Small amount of bilateral pleural fluid, left greater than right, with associated atelectasis at the lung bases. Nonspecific, reactive appearing lymph nodes throughout the mediastinum. Also within the partially vis ualized upper retroperitoneum, similar to the CT abdomen exam from 03/27/2020. Esophageal wall thickening is much less pronounced than on the prior exam. Old healed fractures of the lateral aspect of right rib 10 and left ribs 6 through 10. Degenerative c hanges throughout the lumbar spine. IMPRESSION : No evidence of pulmonary embolus. Small bilateral pleural effusions with compressive bibasilar atelectasis.
[2020-11-01] MEDS: methylPREDNISolone Sod Succ/PF 125 MG/2 ML VIAL IVP SCH (23:29)
[2020-11-01] MEDS: Carvedilol 6.25 MG TAB PO SCH (23:57)
[2020-11-02] MEDS ORDERED: methylPREDNISolone Sod Succ/PF 125 MG/2 ML VIAL ONE (06:38)
[2020-11-02] MEDS: methylPREDNISolone Sod Succ/PF 125 MG/2 ML VIAL IVP SCH ×3 (06:40→22:59)
[2020-11-02 07:15] LABS: Anion Gap 17 mmol/L (10-20); BUN (Urea Nitrogen) 18 mg/dL (8.4-25.7); Calc. Creatinine Clearance 0 mL/min (70-130); Calcium 8.8 mg/dL (7.8-10.44); Carbon Dioxide 17 mmol/L (23-31); Chloride 103 mmol/L (98-107); Glucose 148 mg/dL (83-110); Potassium 4.7 mmol/L (3.5-5.1); Sodium 132 mmol/L (136-145)
[2020-11-02 07:26] LABS: Hemoglobin 8.2 g/dL (14.0-18.0); Mean Corpuscular HGB CONC 28.4 g/dL (32.0-36.0); Mean Corpuscular Hemoglobin 19.4 pg (27.0-31.0); Mean Corpuscular Volume 68.3 fL (78.0-98.0); Mean Platelet Volume 8.8 fL (7.4-10.4); Platelet Count 319 thou/uL (130-400); RBC Distribution Width 18.8 % (11.5-14.5); Red Blood Cell (RBC) Count 4.24 mill/uL (4.70-6.10); White Blood Cell (WBC) Count 4.4 thou/uL (4.8-10.8)
[2020-11-02 07:27] LABS: #Lymphocytes 0.3 thou/uL (1.20-3.40); #Monocytes 0.1 thou/uL (0.11-0.59); %Basophils 0.2 % (0.0-1.0); %Eosinophils 0.1 % (0.0-10.0); %Lymphocytes 7.3 % (21.0-51.0); %Monocytes 1.5 % (0.0-10.0); %Neutrophils 90.9 % (42.0-75.0)
[2020-11-02 08:20] LABS: Hypochromia SLIGHT = 6-15 cells (100X) (0-5/hpf); MDiff Complete? YES; Microcytosis MODERATE=15-30 cells (100X) (0-5/hpf); Platelet Morphology Comment Appears Adequate; Polychromasia SLIGHT = 2-3 cells (100X) (0-2/hpf)
[2020-11-02] MEDS ORDERED: Azithromycin 500 MG VIAL ONE (09:23)
[2020-11-02] MEDS ORDERED: Pantoprazole 40 MG VIAL ONE (09:23)
[2020-11-02] MEDS: Pantoprazole 40 MG VIAL IVP SCH (09:29)
[2020-11-02] MEDS: Carvedilol 6.25 MG TAB PO SCH ×2 (09:29→17:16)
--- NOTE | 2020-11-02 16:19 | PDOC.HOSPP ---
- Subjective Encounter Date: 11/02/20 Subjective: Events overnight. Patient is doing well on room air. - Objective Vital Signs & Weight: Vital Signs (12 hours) BP 11/02/20 09:29 137/74 Weight Weight 139 lb 15.896 oz Result Diagrams: 11/02/20 06:43 11/02/20 06:43 Hospitalist ROS - Medication Medications: Active Medications Generic Name Dose Route Start Last Admin Trade Name Freq PRN Reason Stop Dose Admin Carvedilol 12.5 mg 11/01/20 17:00 11/02/20 09:29 Carvedilol 6.25 Mg Tab PO 12.5 mg BID-WM LASHAY Administration Methylprednisolone Sodium Succinate 125 mg 11/01/20 22:00 11/02/20 06:40 Methylprednisolone Sod Succ/Pf 125 Mg/2 Ml Vial IVP 125 mg Q8HR LASHAY Administration Pantoprazole Sodium 40 mg 11/02/20 09:00 11/02/20 09:29 Pantoprazole 40 Mg Vial IVP 40 mg DAILY LASHAY Administration Hospitalist Exam Vitals: Vital Signs (12 hours) BP 11/02/20 09:29 137/74 Weight Weight 139 lb 15.896 oz General Appearance: NAD Eye: anicteric sclera ENT: normocephalic atraumatic Heart: RRR, no murmur, no gallops, no rubs Respiratory: CTAB, no wheezes, no rales, no ronchi Gastrointestinal: soft, non-tender, non-distended Extremities: no clubbing, no edema Neurological: cranial nerve grossly intact Psychiatric: normal affect, normal behavior Hosp A/P (1) Pneumonia Code(s): J18.9 - PNEUMONIA, UNSPECIFIED ORGANISM Status: Acute (2) COPD (chronic obstructive pulmonary disease) Status: Acute (3) Reflux esophagitis Code(s): K21.0 - GASTRO-ESOPHAGEAL REFLUX DISEASE WITH ESOPHAG * DO NOT USE * Status: Acute (4) HTN (hypertension) Code(s): I10 - ESSENTIAL (PRIMARY) HYPERTENSION Status: Chronic Qualifiers: (5) Hyperlipidemia Code(s): E78.5 - HYPERLIPIDEMIA, UNSPECIFIED Status: Chronic Qualifiers: Hyperlipidemia type: unspecified Qualified Code(s): E78.5 - Hyperlipidemia, unspecified - Plan Assessment Patient is a 70 year old male with possible hx of COPD currently readmitted for suspected pneumonia after he presented with shortness of breath and wheezing. He probably has undiagnosed COPD and appears to be in acute exacerbation. Meets criteria for severe sepsis as evidenced of rapid atrial fibrillation, which resolved with volume repletion. He received cefepime, solumedrol and nebulizer therapy. He tested negative for influenza and COVID 19. Patient is currently on room air and doing well. Due to ongoing power outage in the [place], he is reluctant to go home and is concerned about his safety. Blood cultures are negative to date Severe sepsis PNA COPD exacerbation Rapid atrial fbrillation HTN HLD PUD 2/2 H. pylori PLAN: Continue levofloxacin along with solumedrol PRN DuoNebs ordered as well Follow up sputum, blood and urine cultures Follow-up 2D echo for A. fib work-up Continue coreg for rate control PPI for GI ppx Continue hospital stay until home environment is safe for return.
[2020-11-02 17:11] VITALS: BMI 31.0
[2020-11-02 18:39] LABS: Amphetamine Not Detected (NotDetected); Barbiturates Screen Not Detected (NotDetected); Benzodiazepine Screen Not Detected (NotDetected); Cocaine Metabolite Screen Not Detected (NotDetected); Medtox Control Line Valid? VALID (VALID); Medtox Reader # READER 4; Methadone Not Detected (NotDetected); Methamphetamine Not Detected (NotDetected); Opiate Screen Detected (NotDetected); Oxycodone Screen Not Detected (NotDetected); Phencyclidine (PCP) Not Detected (NotDetected); THC/Cannabinoid Screen Not Detected (NotDetected); Tricyclic Screen Not Detected (NotDetected)
[2020-11-03 04:57] LABS: #Lymphocytes 0.4 thou/uL (1.20-3.40); #Monocytes 0.4 thou/uL (0.11-0.59); #Neutrophils 5.6 thou/uL (1.40-6.50); %Eosinophils 0.1 % (0.0-10.0); %Lymphocytes 6.1 % (21.0-51.0); %Monocytes 6.8 % (0.0-10.0); %Neutrophils 86.9 % (42.0-75.0); Hemoglobin 8.4 g/dL (14.0-18.0); Mean Corpuscular HGB CONC 30.1 g/dL (32.0-36.0); Mean Corpuscular Hemoglobin 19.9 pg (27.0-31.0); Mean Corpuscular Volume 66.3 fL (78.0-98.0); Mean Platelet Volume 9.6 fL (7.4-10.4); Platelet Count 304 thou/uL (130-400); RBC Distribution Width 18.6 % (11.5-14.5); Red Blood Cell (RBC) Count 4.21 mill/uL (4.70-6.10); White Blood Cell (WBC) Count 6.4 thou/uL (4.8-10.8)
[2020-11-03 05:17] LABS: Anion Gap 13 mmol/L (10-20); BUN (Urea Nitrogen) 29 mg/dL (8.4-25.7); Calc. Creatinine Clearance 81 mL/min (70-130); Carbon Dioxide 22 mmol/L (23-31); Chloride 104 mmol/L (98-107); Glucose 123 mg/dL (83-110); Potassium 4.4 mmol/L (3.5-5.1); Sodium 135 mmol/L (136-145)
[2020-11-03] MEDS: methylPREDNISolone Sod Succ/PF 125 MG/2 ML VIAL IVP SCH ×2 (05:19→14:40)
[2020-11-03] MEDS: Carvedilol 6.25 MG TAB PO SCH (08:17)
[2020-11-03] MEDS: Pantoprazole 40 MG VIAL IVP SCH (08:17)
[2020-11-03] MEDS ORDERED: hydrALAZINE 25 MG TAB PO SCH ×2 (09:00→21:00)
[2020-11-03] MEDS ORDERED: Furosemide 20 MG TAB PO SCH (09:00)
[2020-11-03] MEDS ORDERED: Amlodipine 5 MG TAB PO SCH (09:00)
--- NOTE | 2020-11-03 15:23 | PDOC.HOSPP ---
- Subjective Encounter Date: 11/03/20 Subjective: Overnight. Patient is slightly hypertensive today. He is asymptomatic and is on room air. Discharge is delayed due to ongoing weather conditions. He does not have electricity at home. - Objective Vital Signs & Weight: Vital Signs (12 hours) Temp Pulse Resp BP BP Pulse Ox 11/03/20 11:31 97.7 F 75 20 177/74 H 96 11/03/20 07:38 97.6 F 88 17 177/75 H 96 11/03/20 04:00 98.9 F 60 18 139/72 99 Weight Weight 192 lb 8 oz I&O: 11/02/20 11/03/20 11/04/20 06:59 06:59 06:59 Intake Total 220 Output Total 750 Balance -530 Result Diagrams: 11/03/20 04:35 11/03/20 04:35 Hospitalist ROS - Medication Medications: Active Medications Generic Name Dose Route Start Last Admin Trade Name Freq PRN Reason Stop Dose Admin Amlodipine Besylate 10 mg 11/03/20 09:00 11/03/20 10:05 Amlodipine 5 Mg Tab PO 10 mg DAILY LASHAY Administration Furosemide 20 mg 11/03/20 09:00 11/03/20 10:05 Furosemide 20 Mg Tab PO 20 mg DAILY LASHAY Administration Hydralazine HCl 100 mg 11/03/20 09:00 11/03/20 10:04 Hydralazine 25 Mg Tab PO 100 mg BID LASHAY Administration Levofloxacin 750 mg/ Device 150 mls @ 100 mls/hr 11/02/20 23:59 11/02/20 22:58 IVPB 150 mls 2359 LASHAY Administration Methylprednisolone Sodium Succinate 125 mg 11/01/20 22:00 11/03/20 14:40 Methylprednisolone Sod Succ/Pf 125 Mg/2 Ml Vial IVP 125 mg Q8HR LASHAY Administration Pantoprazole Sodium 40 mg 11/02/20 09:00 11/03/20 08:17 Pantoprazole 40 Mg Vial IVP 40 mg DAILY LASHAY Administration Hospitalist Exam Vitals: Vital Signs (12 hours) Temp Pulse Resp BP BP Pulse Ox 11/03/20 11:31 97.7 F 75 20 177/74 H 96 11/03/20 07:38 97.6 F 88 17 177/75 H 96 11/03/20 04:00 98.9 F 60 18 139/72 99 Weight Weight 192 lb 8 oz General Appearance: NAD, awake alert Eye: anicteric sclera ENT: normocephalic atraumatic Neck: supple, symmetric Heart: no murmur Heart - other findings: Irregular heart rate Respiratory: CTAB, no wheezes, no rales, no ronchi Extremities: no clubbing, no edema Neurological: cranial nerve grossly intact Psychiatric: normal affect, normal behavior Hosp A/P (1) Pneumonia Code(s): J18.9 - PNEUMONIA, UNSPECIFIED ORGANISM Status: Acute (2) COPD (chronic obstructive pulmonary disease) Status: Acute (3) Reflux esophagitis Code(s): K21.0 - GASTRO-ESOPHAGEAL REFLUX DISEASE WITH ESOPHAG * DO NOT USE * Status: Acute (4) HTN (hypertension) Code(s): I10 - ESSENTIAL (PRIMARY) HYPERTENSION Status: Chronic Qualifiers: (5) Hyperlipidemia Code(s): E78.5 - HYPERLIPIDEMIA, UNSPECIFIED Status: Chronic Qualifiers: Hyperlipidemia type: unspecified Qualified Code(s): E78.5 - Hyperlipidemia, unspecified - Plan Assessment Patient is a 70 year old male with possible hx of COPD currently readmitted for suspected pneumonia with possible COPD exacerbation after he presented with shortness of breath and wheezing. Met criteria for severe sepsis as evidenced of rapid atrial fibrillation, which resolved with volume repletion. He received cefepime, solumedrol and nebulizer therapy. He tested negative for influenza and COVID 19. Patient is currently on room air and doing well. Due to ongoing power outage in the city, he is reluctant to go home and is concerned about his safety. Blood cultures are negative to date. Last 24 hours marked by increasing blood pressure. Severe sepsis PNA COPD exacerbation Rapid atrial fbrillation Chronic systolic heart failure - 2D echo showed EF of 45% Uncontrolled HTN HLD PUD 2/2 H. pylori Microcytic anemia PLAN: Follow-up iron panel. Will start therapy if indicated Increase Coreg to 25 mg twice daily Patient is a poor candidate for systemic anticoagulation due to past history of GI bleeding Resume home dose of Norvasc and hydralazine continue levofloxacin along with solumedrol PRN DuoNebs ordered as well PPI for GI ppx Continue hospital stay until home environment is safe for return.
[2020-11-03 16:13] VITALS: TEMP 97.5
[2020-11-03] MEDS ORDERED: Carvedilol 25 MG TAB PO SCH (17:00)
--- NOTE | 2020-11-03 17:08 | PDOC.DS.DS ---
Provider Date of Admission: 11/01/20 18:48 Date of Discharge: 11/03/20 Admitting Provider: Prince Bar Gray MD Primary Care Physician: NO PCP PROVIDER Course Hospital Course: Is a 70-year-old male who was admitted for acute respiratory failure secondary to COPD exacerbation. Hospital course was complicated by a rapid atrial fibrillation which corrected with volume repletion. Patient made a drastic every within 24 hours. Did well on systemic corticosteroids, levofloxacin and nebulizer treatment. Is currently on room air. The course was marked by mild elevation of hypertension. He was resumed on his home meds. Dated additional day in the hospital due to ongoing weather conditions and our outage in the city. He is now going to be discharged to a separate unit in the hospital pending a safe discharge to his home environment. Lab Results: 11/03/20 04:35 11/03/20 04:35 Abnormal Lab Results - Last 48 hrs 11/02/20 06:43: Sodium 132 L, Carbon Dioxide 17 L 11/02/20 06:43: WBC 4.4 L, RBC 4.24 L, Hgb 8.2 L, Hct 29.0 L, MCV 68.3 L, MCH 19.4 L, MCHC 28.4 L, RDW 18.8 H, Neutrophils % 90.9 H, Lymphocytes % 7.3 L, Lymphocytes # 0.3 L, Monocytes # 0.1 L, Microcytosis MODERATE=15-30 cells H 11/02/20 18:02: Urine Opiates Screen Detected H 11/03/20 04:35: Sodium 135 L, Carbon Dioxide 22 L, BUN 29 H 11/03/20 04:35: RBC 4.21 L, Hgb 8.4 L, Hct 27.9 L, MCV 66.3 L, MCH 19.9 L, MCHC 30.1 L, RDW 18.6 H, Neutrophils % 86.9 H, Lymphocytes % 6.1 L, Lymphocytes # 0.4 L Microbiology - Entire Visit 11/01/20 15:00 Venous blood - Left Arm Blood Culture - Preliminary NO GROWTH AT 48 HOURS 11/01/20 15:00 Venous blood - Right Arm Blood Culture - Preliminary NO GROWTH AT 48 HOURS Vitals: Vital Signs (12 hours) Temp Pulse Resp BP BP Pulse Ox 11/03/20 16:00 97.5 F L 73 15 141/65 H 96 11/03/20 11:31 97.7 F 75 20 177/74 H 96 11/03/20 07:38 97.6 F 88 17 177/75 H 96 Weight Weight 192 lb 8 oz Physical Exam: The patient was seen and examined on the day of discharge. Problem Assessment: Please refer to hospital course and H&P (1) Pneumonia Code(s): J18.9 - PNEUMONIA, UNSPECIFIED ORGANISM Status: Acute (2) COPD (chronic obstructive pulmonary disease) Status: Acute (3) Reflux esophagitis Code(s): K21.0 - GASTRO-ESOPHAGEAL REFLUX DISEASE WITH ESOPHAG * DO NOT USE * Status: Acute (4) HTN (hypertension) Code(s): I10 - ESSENTIAL (PRIMARY) HYPERTENSION Status: Chronic Qualifiers: (5) Hyperlipidemia Code(s): E78.5 - HYPERLIPIDEMIA, UNSPECIFIED Status: Chronic Qualifiers: Hyperlipidemia type: unspecified Qualified Code(s): E78.5 - Hyperlipidemia, unspecified Plan Prescriptions: Levofloxacin [Levaquin Oral Solution] 750 mg PO DAILY #3 ml predniSONE 50 mg PO QAM-WM #3 tab Home Medications: Medication Instructions Recorded Confirmed Type Amlodipine [Norvasc] 5 mg PO DAILY 01/24/20 11/03/20 History hydrALAZINE HCl 100 mg PO BID 01/24/20 11/03/20 History Furosemide 20 mg PO DAILY 02/11/20 11/03/20 History Pantoprazole [Protonix] 40 mg PO BID #60 tab 02/17/20 11/03/20 Rx Albuterol Sulfate [Proair HFA] 1 puff INH Q4HR PRN #1 inh 08/18/20 11/03/20 Rx Carvedilol [Coreg] 25 mg PO BID-WM tab 11/03/20 Rx Levofloxacin [Levaquin Oral 750 mg PO DAILY #3 ml 11/03/20 Rx Solution] Pantoprazole [Protonix] 40 mg IVP DAILY vial 11/03/20 Rx Potassium Citrate [Potassium 10 meq PO DAILY 11/03/20 11/03/20 History Citrate ER] predniSONE 50 mg PO QAM-WM #3 tab 11/03/20 Rx Allergies: Penicillins Allergy (Verified 11/02/20 17:07) Referrals: PROVIDER,NO PCP [Primary Care Provider] - Disposition: HOME Quality CORE MEASURES:: N/A
[2020-11-03 17:11] LABS: Iron 10 ug/dL (65-175); Iron Binding Capacity, Total 461 mcg/dL (261-462); Transferrin, Serum 369 mg/dL (163-344)
[2020-11-04 02:33] VITALS: BP 127/64
[2020-11-04] MEDS ORDERED: Carvedilol 25 MG TAB PO SCH (08:00)
[2020-11-04] MEDS ORDERED: Ferrous Sulfate 325 MG TAB PO SCH (08:00)
[2020-11-04] MEDS ORDERED: predniSONE 50 MG TAB PO SCH ×2 (08:00)
[2020-11-04] MEDS ORDERED: Potassium Citrate 10 MEQ TAB PO SCH ×2 (09:00)
[2020-11-04] MEDS ORDERED: Amlodipine 5 MG TAB PO SCH ×2 (09:00)
[2020-11-04] MEDS ORDERED: Furosemide 20 MG TAB PO SCH (09:00)
== END 2020-11-03 21:27 | disposition home or self-care (01) | DRG 871 ==
LOC: ERS 13:24 → ERHOLD 18:48 → 2NO 11-02 17:23
PROVIDERS: ADMIT Internal Medicine; ATTEND Internal Medicine
DX: A41.9 Sepsis, unspecified organism (principal); J18.9 Pneumonia, unspecified organism; J96.00 Acute respiratory failure, unspecified whether with hypoxia or hypercapnia; J44.1 Chronic obstructive pulmonary disease with (acute) exacerbation; I50.22 Chronic systolic (congestive) heart failure; J44.0 Chronic obstructive pulmonary disease with (acute) lower respiratory infection; R65.20 Severe sepsis without septic shock; I48.91 Unspecified atrial fibrillation; Z20.822 Contact with and (suspected) exposure to COVID-19; K21.00 Gastro-esophageal reflux disease with esophagitis, without bleeding; E78.00 Pure hypercholesterolemia, unspecified; K27.9 Peptic ulcer, site unspecified, unspecified as acute or chronic, without hemorrhage or perforation; I11.0 Hypertensive heart disease with heart failure; D50.9 Iron deficiency anemia, unspecified; Z88.0 Allergy status to penicillin; Z79.51 Long term (current) use of inhaled steroids; Z79.52 Long term (current) use of systemic steroids; Z79.899 Other long term (current) drug therapy
CPT/HCPCS: 0240U; 36415; 71045; 71275; 80048; 80053; 80061; 80306; 82728; 83540; 83550; 83605; 83735; 83880; 84443; 84466; 84484; 85025; 87040; 93005; 93306; 96365; 96367; 96375; C9113; J0456; J0692; J1956; J2930; J7050; J7611; Q9967

== ENCOUNTER 2021-01-31 19:38 | Inpatient (IN) | payer MEDICARE ==
[2021-01-31 20:05] LABS: #Basophils 0.1 thou/uL (0.0-0.2); #Eosinphils 0.1 thou/uL (0.0-0.7); #Lymphocytes 0.9 thou/uL (1.20-3.40); #Monocytes 0.9 thou/uL (0.11-0.59); #Neutrophils 4.6 thou/uL (1.40-6.50); %Basophils 1.1 % (0.0-1.0); %Eosinophils 2.1 % (0.0-10.0); %Lymphocytes 13.7 % (21.0-51.0); %Monocytes 14.1 % (0.0-10.0); Hemoglobin 7.5 g/dL (14.0-18.0); Mean Corpuscular HGB CONC 29.1 g/dL (32.0-36.0); Mean Corpuscular Hemoglobin 18.4 pg (27.0-31.0); Mean Corpuscular Volume 63.4 fL (78.0-98.0); Mean Platelet Volume 10.7 fL (7.4-10.4); Platelet Count 331 thou/uL (130-400); Red Blood Cell (RBC) Count 4.08 mill/uL (4.70-6.10); White Blood Cell (WBC) Count 6.7 thou/uL (4.8-10.8)
[2021-01-31 20:17] LABS: Reflex for Review?? NO
[2021-01-31 20:20] LABS: Anisocytosis SLIGHT = 6-15 cells (100X) (0-5/hpf); Elliptocytes SLIGHT = 2-5 cells (100X) (0-1/hpf); Hypochromia MODERATE=16-30 cells (100X) (0-5/hpf); MDiff Complete? YES; Microcytosis SLIGHT = 6-15 cells (100X) (0-5/hpf); Ovalocytes SLIGHT = 2-5 cells (100X) (0-1/hpf); Platelet Morphology Comment Appears Adequate; Polychromasia MODERATE = 3-4 cells (100X) (0-2/hpf); Target Cells SLIGHT = 2-5 cells (100X) (0-1/hpf)
[2021-01-31 20:30] LABS: ALT (SGPT) 12 U/L (8-55); AST (SGOT) 22 U/L (5-34); Alkaline Phosphatase 90 U/L (40-110); Anion Gap 15 mmol/L (10-20); BUN (Urea Nitrogen) 8 mg/dL (8.4-25.7); Bilirubin, Total 0.9 mg/dL (0.2-1.2); Calc. Creatinine Clearance 0 mL/min (70-130); Calcium 8.8 mg/dL (7.8-10.44); Carbon Dioxide 22 mmol/L (23-31); Chloride 95 mmol/L (98-107); Globulin 3.1 g/dL (2.4-3.5); Glucose 97 mg/dL (83-110); Potassium 3.7 mmol/L (3.5-5.1); Protein, Total 7.1 g/dL (5.8-8.1); Sodium 128 mmol/L (136-145)
[2021-01-31 20:33] LABS: INR-International Normal Ratio 1.2; Prothrombin Time 15.3 sec (12.0-14.7)
[2021-01-31] MEDS ORDERED: Pantoprazole 40 MG VIAL ONE (20:44)
[2021-01-31 21:56] LABS: Bilirubin Negative (Negative); Blood, Urine Negative (Negative); Clarity Clear (Clear); Glucose, Urine (Dipstick) Normal (Negative); Ketone, Urine Negative (Negative); Leukocyte Negative Leu/uL (Negative); Nitrite Negative (Negative); Protein, Urine (Dipstick) Negative (Neg-Trace); Urobilinogen Normal mg/dL (Less than 2); pH, Urine 6.5 (5.0-9.0)
[2021-01-31] MEDS ORDERED: Furosemide 20 MG/2 ML VIAL ONE (21:59)
[2021-02-01] MEDS ORDERED: Ondansetron PF 4 MG/2 ML Vial IVP PRN (02:00)
[2021-02-01] MEDS ORDERED: Acetaminophen 325 MG TAB PO PRN (02:00)
[2021-02-01 02:16] LABS: SARS-CoV-2 PCR by NAA Not Detected (NotDetected)
[2021-02-01 02:49] LABS: Troponin I Less than 0.010 ng/mL (< 0.028)
[2021-02-01 02:57] LABS: Band 5 % (5-11); Eosinophils 3 % (0-10); Hemoglobin 7.4 g/dL (14.0-18.0); Lymphocytes 16 % (21-51); MDiff Complete? YES; Mean Corpuscular HGB CONC 29.4 g/dL (32.0-36.0); Mean Corpuscular Hemoglobin 18.7 pg (27.0-31.0); Mean Corpuscular Volume 63.7 fL (78.0-98.0); Mean Platelet Volume 10.3 fL (7.4-10.4); Monocytes 8 % (0-10); Neutrophil 67 % (42-75); Platelet Count 319 thou/uL (130-400); RBC Distribution Width 17.8 % (11.5-14.5); Red Blood Cell (RBC) Count 3.94 mill/uL (4.70-6.10); White Blood Cell (WBC) Count 6.3 thou/uL (4.8-10.8)
[2021-02-01 03:01] LABS: Anion Gap 12 mmol/L (10-20); BUN (Urea Nitrogen) 9 mg/dL (8.4-25.7); Calc. Creatinine Clearance 0 mL/min (70-130); Carbon Dioxide 26 mmol/L (23-31); Chloride 99 mmol/L (98-107); Glucose 98 mg/dL (83-110); Potassium 3.6 mmol/L (3.5-5.1); Sodium 133 mmol/L (136-145)
[2021-02-01] MEDS ORDERED: Furosemide 20 MG/2 ML VIAL ONE (06:10)
[2021-02-01] MEDS: Furosemide 20 MG/2 ML VIAL SLOW IVP SCH ×2 (06:13→14:40)
[2021-02-01] MEDS ORDERED: Pantoprazole 40 MG VIAL ONE (10:14)
[2021-02-01] MEDS: Pantoprazole 40 MG VIAL IVP SCH ×2 (10:22→21:39)
[2021-02-01 12:10] LABS: Hemoglobin 7.8 g/dL (14.0-18.0)
[2021-02-01 14:03] VITALS: BMI 33.3
[2021-02-01 15:04] LABS: Iron 13 ug/dL (65-175); Iron Binding Capacity, Total 480 mcg/dL (261-462)
[2021-02-02] MEDS: Furosemide 20 MG/2 ML VIAL SLOW IVP SCH (05:27)
[2021-02-02 05:35] LABS: #Basophils 0.1 thou/uL (0.0-0.2); #Eosinphils 0.2 thou/uL (0.0-0.7); #Lymphocytes 1.1 thou/uL (1.20-3.40); #Monocytes 0.9 thou/uL (0.11-0.59); %Basophils 1.1 % (0.0-1.0); %Eosinophils 3.1 % (0.0-10.0); %Lymphocytes 17.1 % (21.0-51.0); %Monocytes 14.8 % (0.0-10.0); Hemoglobin 7.5 g/dL (14.0-18.0); Mean Corpuscular HGB CONC 28.1 g/dL (32.0-36.0); Mean Corpuscular Hemoglobin 18.1 pg (27.0-31.0); Mean Corpuscular Volume 64.3 fL (78.0-98.0); Mean Platelet Volume 10.2 fL (7.4-10.4); Platelet Count 328 thou/uL (130-400); RBC Distribution Width 17.9 % (11.5-14.5); Red Blood Cell (RBC) Count 4.15 mill/uL (4.70-6.10); White Blood Cell (WBC) Count 6.3 thou/uL (4.8-10.8)
[2021-02-02 06:21] LABS: Anion Gap 12 mmol/L (10-20); BUN (Urea Nitrogen) 14 mg/dL (8.4-25.7); Calc. Creatinine Clearance 91 mL/min (70-130); Calcium 8.8 mg/dL (7.8-10.44); Carbon Dioxide 26 mmol/L (23-31); Chloride 100 mmol/L (98-107); Glucose 95 mg/dL (83-110); Potassium 3.5 mmol/L (3.5-5.1); Sodium 134 mmol/L (136-145)
[2021-02-02] MEDS: Ferrous Sulfate 325 MG TAB PO SCH (08:35)
[2021-02-02] MEDS: Pantoprazole 40 MG VIAL IVP SCH ×2 (08:36→20:58)
[2021-02-02] MEDS ORDERED: Furosemide 20 MG/2 ML VIAL SLOW IVP SCH (10:10)
[2021-02-02] MEDS ORDERED: Furosemide 40 MG/4 ML VIAL SLOW IVP SCH (10:15)
[2021-02-02] MEDS: Furosemide 40 MG/4 ML VIAL SLOW IVP SCH (16:23)
[2021-02-03 05:53] LABS: #Basophils 0.1 thou/uL (0.0-0.2); #Eosinphils 0.2 thou/uL (0.0-0.7); #Lymphocytes 1.1 thou/uL (1.20-3.40); #Neutrophils 4.8 thou/uL (1.40-6.50); %Basophils 0.8 % (0.0-1.0); %Eosinophils 2.5 % (0.0-10.0); %Lymphocytes 15.1 % (21.0-51.0); %Monocytes 14.1 % (0.0-10.0); %Neutrophils 67.6 % (42.0-75.0); Hemoglobin 8.1 g/dL (14.0-18.0); Mean Corpuscular HGB CONC 29.8 g/dL (32.0-36.0); Mean Corpuscular Volume 63.7 fL (78.0-98.0); Mean Platelet Volume 10.8 fL (7.4-10.4); Platelet Count 346 thou/uL (130-400); RBC Distribution Width 17.9 % (11.5-14.5); Red Blood Cell (RBC) Count 4.29 mill/uL (4.70-6.10)
[2021-02-03 06:03] LABS: Anion Gap 12 mmol/L (10-20); BUN (Urea Nitrogen) 14 mg/dL (8.4-25.7); Calc. Creatinine Clearance 99 mL/min (70-130); Calcium 8.4 mg/dL (7.8-10.44); Carbon Dioxide 27 mmol/L (23-31); Chloride 98 mmol/L (98-107); Glucose 98 mg/dL (83-110); Sodium 134 mmol/L (136-145)
[2021-02-03 06:08] LABS: Potassium 2.9 mmol/L (3.5-5.1)
[2021-02-03] MEDS: Furosemide 40 MG/4 ML VIAL SLOW IVP SCH ×2 (06:41→15:03)
[2021-02-03] MEDS: Potassium Chloride 20 MEQ in Premix Bag 1 BAG IVPB SCH ×2 (07:48→10:06)
[2021-02-03] MEDS: Pantoprazole 40 MG VIAL IVP SCH (07:49)
[2021-02-03] MEDS: Ferrous Sulfate 325 MG TAB PO SCH (07:49)
[2021-02-03] MEDS ORDERED: Electrolyte Replacement Protocol 1 EACH FS SCH (08:00)
[2021-02-03] MEDS ORDERED: Electrolyte Replacement Protocol FS PRN (08:30)
[2021-02-03] MEDS ORDERED: Magnesium 2 GM/50 ML 2 GM in Premix Bag 1 BAG IVPB SCH ×2 (09:15→12:00)
[2021-02-03] MEDS ORDERED: Potassium Chloride 40 MEQ in Sodium Chloride 0.9% 250 ML 250 ML IVPB SCH (12:00)
[2021-02-03 15:56] LABS: Potassium 3.2 mmol/L (3.5-5.1)
[2021-02-03] MEDS ORDERED: Potassium Chloride 20 MEQ TAB PO SCH (19:45)
[2021-02-04 03:26] LABS: Potassium 3.8 mmol/L (3.5-5.1)
[2021-02-04 05:23] VITALS: TEMP 97.9
[2021-02-04 05:36] LABS: Anion Gap 10 mmol/L (10-20); BUN (Urea Nitrogen) 14 mg/dL (8.4-25.7); Calc. Creatinine Clearance 96 mL/min (70-130); Calcium 8.8 mg/dL (7.8-10.44); Carbon Dioxide 28 mmol/L (23-31); Chloride 98 mmol/L (98-107); Glucose 96 mg/dL (83-110); Magnesium 2.1 mg/dL (1.6-2.6); Potassium 3.7 mmol/L (3.5-5.1); Sodium 132 mmol/L (136-145)
[2021-02-04 06:24] LABS: #Basophils 0.1 thou/uL (0.0-0.2); #Eosinphils 0.3 thou/uL (0.0-0.7); #Lymphocytes 1.1 thou/uL (1.20-3.40); #Monocytes 1.1 thou/uL (0.11-0.59); #Neutrophils 4.7 thou/uL (1.40-6.50); %Basophils 1.4 % (0.0-1.0); %Eosinophils 4.7 % (0.0-10.0); %Lymphocytes 14.5 % (21.0-51.0); %Monocytes 14.8 % (0.0-10.0); %Neutrophils 64.5 % (42.0-75.0); Anisocytosis SLIGHT = 6-15 cells (100X) (0-5/hpf); Band 1 % (5-11); Elliptocytes SLIGHT = 2-5 cells (100X) (0-1/hpf); Eosinophils 1 % (0-10); Hemoglobin 7.9 g/dL (14.0-18.0); Hypochromia SLIGHT = 6-15 cells (100X) (0-5/hpf); Lymphocytes 10 % (21-51); MDiff Complete? YES; Mean Corpuscular HGB CONC 29.4 g/dL (32.0-36.0); Mean Corpuscular Hemoglobin 18.7 pg (27.0-31.0); Mean Corpuscular Volume 63.6 fL (78.0-98.0); Mean Platelet Volume 10.3 fL (7.4-10.4); Microcytosis SLIGHT = 6-15 cells (100X) (0-5/hpf); Monocytes 15 % (0-10); Neutrophil 73 % (42-75); Platelet Count 386 thou/uL (130-400); RBC Distribution Width 17.8 % (11.5-14.5); Tear Drops SLIGHT = 2-5 cells (100X) (0-1/hpf); White Blood Cell (WBC) Count 7.3 thou/uL (4.8-10.8)
[2021-02-04] MEDS: Furosemide 40 MG/4 ML VIAL SLOW IVP SCH (06:34)
[2021-02-04 08:43] VITALS: BP 155/72
[2021-02-04] MEDS: Ferrous Sulfate 325 MG TAB PO SCH (09:06)
[2021-02-04] MEDS ORDERED: Furosemide 40 MG/4 ML VIAL SLOW IVP SCH (14:00)
[2021-02-05] MEDS ORDERED: Furosemide 40 MG TAB PO SCH ×2 (07:30)
== END 2021-02-04 12:22 | disposition home or self-care (01) | DRG 292 ==
LOC: ERS 19:38 → ERHOLD 21:47 → 2SW 02-01 13:54 → OBSVTOIN 02-02 12:33
PROVIDERS: ADMIT Internal Medicine; ATTEND Internal Medicine
DX: I11.0 Hypertensive heart disease with heart failure (principal); E87.1 Hypo-osmolality and hyponatremia; I48.0 Paroxysmal atrial fibrillation; E78.5 Hyperlipidemia, unspecified; I50.23 Acute on chronic systolic (congestive) heart failure; J44.9 Chronic obstructive pulmonary disease, unspecified; D50.9 Iron deficiency anemia, unspecified; I87.2 Venous insufficiency (chronic) (peripheral); Z20.822 Contact with and (suspected) exposure to COVID-19; K21.9 Gastro-esophageal reflux disease without esophagitis; F17.210 Nicotine dependence, cigarettes, uncomplicated; Z88.0 Allergy status to penicillin; Z79.899 Other long term (current) drug therapy
CPT/HCPCS: 36415; 71045; 80048; 80053; 81003; 82274; 82550; 82728; 83540; 83550; 83605; 83735; 83880; 83930; 83935; 84300; 84484; 85025; 85610; 85730; 86850; 86900; 86901; 86922; 87635; 93005; 94640; 96374; 96375; 96376; C9113; G0378; J1940; J3475; J3480; J7620; U0003; U0005

== ENCOUNTER 2021-09-26 13:37 | Inpatient (IN) | payer MEDICARE ==
[2021-09-26 16:38] LABS: #Eosinphils 0.2 thou/uL (0.0-0.7); #Lymphocytes 1.4 thou/uL (1.20-3.40); #Monocytes 0.8 thou/uL (0.11-0.59); #Neutrophils 7.1 thou/uL (1.40-6.50); %Basophils 0.5 % (0.0-1.0); %Eosinophils 2.2 % (0.0-10.0); %Lymphocytes 14.8 % (21.0-51.0); %Monocytes 8.6 % (0.0-10.0); %Neutrophils 73.9 % (42.0-75.0); Hemoglobin 15.9 g/dL (14.0-18.0); Mean Corpuscular HGB CONC 31.3 g/dL (32.0-36.0); Mean Corpuscular Hemoglobin 25.6 pg (27.0-31.0); Mean Corpuscular Volume 81.8 fL (78.0-98.0); Mean Platelet Volume 7.2 fL (7.4-10.4); Platelet Count 284 thou/uL (130-400); RBC Distribution Width 14.7 % (11.5-14.5); White Blood Cell (WBC) Count 9.6 thou/uL (4.8-10.8)
[2021-09-26 17:11] LABS: ALT (SGPT) 18 U/L (8-55); AST (SGOT) 22 U/L (5-34); Albumin 4.1 g/dL (3.4-4.8); Alkaline Phosphatase 109 U/L (40-110); Anion Gap 14 mmol/L (10-20); BUN (Urea Nitrogen) 14 mg/dL (8.4-25.7); Bilirubin, Total 0.7 mg/dL (0.2-1.2); Calc. Creatinine Clearance 0 mL/min (70-130); Calcium 9.9 mg/dL (7.8-10.44); Carbon Dioxide 25 mmol/L (23-31); Chloride 102 mmol/L (98-107); Globulin 3.9 g/dL (2.4-3.5); Glucose 101 mg/dL (83-110); Sodium 137 mmol/L (136-145)
[2021-09-26 17:38] LABS: Bilirubin Negative (Negative); Blood, Urine Negative (Negative); Clarity Clear (Clear); Glucose, Urine (Dipstick) Normal (Negative); Ketone, Urine Negative (Negative); Leukocyte Negative Leu/uL (Negative); Nitrite Negative (Negative); Protein, Urine (Dipstick) 10 mg/dL (Neg-Trace); Specific Gravity, Urine 1.012 (1.002-1.036); Urobilinogen Normal mg/dL (Less than 2); pH, Urine 6.5 (5.0-9.0)
[2021-09-26] MEDS ORDERED: Aspirin 325 MG TAB ONE (19:12)
[2021-09-26] MEDS ORDERED: Ondansetron PF 4 MG/2 ML Vial IVP PRN (19:21)
[2021-09-26] MEDS ORDERED: Acetaminophen 325 MG TAB PO PRN (19:21)
[2021-09-26] MEDS ORDERED: Senokot S 8.6-50 MG TAB PO PRN (19:21)
[2021-09-26] MEDS ORDERED: Bisacodyl 5 MG TAB PO PRN (19:21)
[2021-09-26] MEDS ORDERED: Melatonin 3 MG TAB PO PRN (19:33)
[2021-09-26] MEDS ORDERED: hydrALAZINE 20 MG/ML VIAL SLOW IVP PRN (19:35)
[2021-09-26 20:39] LABS: SARS-CoV-2 NAA Rapid Test Not Detected (NotDetected)
[2021-09-26] MEDS ORDERED: Famotidine/PF 20 mg/2ml Vial SLOW IVP SCH (21:00)
[2021-09-26] MEDS: Nicotine 21 MG PATCH TD SCH (21:24)
[2021-09-26] MEDS: hydrALAZINE 25 MG TAB PO SCH (21:43)
[2021-09-27 01:51] VITALS: BMI 33.4
[2021-09-27 05:28] LABS: #Basophils 0.1 thou/uL (0.0-0.2); #Eosinphils 0.4 thou/uL (0.0-0.7); #Lymphocytes 1.4 thou/uL (1.20-3.40); #Monocytes 0.9 thou/uL (0.11-0.59); #Neutrophils 5.2 thou/uL (1.40-6.50); %Eosinophils 4.5 % (0.0-10.0); %Lymphocytes 17.4 % (21.0-51.0); %Monocytes 11.6 % (0.0-10.0); %Neutrophils 65.6 % (42.0-75.0); Hemoglobin 13.6 g/dL (14.0-18.0); Mean Corpuscular HGB CONC 29.3 g/dL (32.0-36.0); Mean Corpuscular Hemoglobin 23.6 pg (27.0-31.0); Mean Corpuscular Volume 80.6 fL (78.0-98.0); Mean Platelet Volume 7.5 fL (7.4-10.4); Platelet Count 276 thou/uL (130-400); RBC Distribution Width 14.7 % (11.5-14.5); Red Blood Cell (RBC) Count 5.76 mill/uL (4.70-6.10); White Blood Cell (WBC) Count 7.9 thou/uL (4.8-10.8)
[2021-09-27 05:51] LABS: Hemoglobin A1c 5.6 % (4.0-6.0)
[2021-09-27 05:53] LABS: Cardiac Risk 4.6 (Less than 4.5)
[2021-09-27 06:42] LABS: ALT (SGPT) 18 U/L (8-55); AST (SGOT) 22 U/L (5-34); Albumin 3.7 g/dL (3.4-4.8); Alkaline Phosphatase 100 U/L (40-110); Anion Gap 13 mmol/L (10-20); BUN (Urea Nitrogen) 15 mg/dL (8.4-25.7); Bilirubin, Total 0.8 mg/dL (0.2-1.2); Calc. Creatinine Clearance 89 mL/min (70-130); Calcium 9.2 mg/dL (7.8-10.44); Carbon Dioxide 26 mmol/L (23-31); Chloride 103 mmol/L (98-107); Glucose 89 mg/dL (83-110); Potassium 4.1 mmol/L (3.5-5.1); Protein, Total 6.7 g/dL (5.8-8.1); Sodium 138 mmol/L (136-145)
[2021-09-27] MEDS ORDERED: Furosemide 40 MG TAB PO SCH (07:30)
[2021-09-27] MEDS: Aspirin Chewable 81 MG TAB PO SCH (09:58)
[2021-09-27] MEDS: hydrALAZINE 25 MG TAB PO SCH (11:14)
[2021-09-27] MEDS: Amlodipine 5 MG TAB PO SCH (11:38)
[2021-09-27 14:12] LABS: Amphetamine Not Detected (NotDetected); Barbiturates Screen Not Detected (NotDetected); Benzodiazepine Screen Not Detected (NotDetected); Cocaine Metabolite Screen Not Detected (NotDetected); Methadone Not Detected (NotDetected); Methamphetamine Not Detected (NotDetected); Opiate Screen Not Detected (NotDetected); Oxycodone Screen Not Detected (NotDetected); Phencyclidine (PCP) Not Detected (NotDetected); THC/Cannabinoid Screen Not Detected (NotDetected); Tricyclic Screen Not Detected (NotDetected)
[2021-09-27 14:19] LABS: Acetaminophen Less than 6.0 mcg/mL (10.0-30.0); Alcohol Less than 10 mg/dL (Less than 10); Salicylate Less than 8.0 mg/dL (15.0-30.0)
[2021-09-27] MEDS: Nicotine 21 MG PATCH TD SCH (19:53)
[2021-09-27] MEDS ORDERED: Atorvastatin Calcium 40 MG TAB PO SCH (21:00)
[2021-09-28] MEDS: Aspirin Chewable 81 MG TAB PO SCH (08:39)
[2021-09-28] MEDS: Amlodipine 5 MG TAB PO SCH (08:39)
[2021-09-28] MEDS ORDERED: Thiamine 100 MG TAB PO SCH (09:00)
[2021-09-28] MEDS ORDERED: Furosemide 20 MG TAB PO SCH (09:00)
[2021-09-28] MEDS ORDERED: Folic Acid 1 MG TAB PO SCH (09:00)
[2021-09-28 11:36] LABS: Free T4 (Free Thyroxine) 1.2 ng/dL (0.70-1.48); Thyroid Stimulating Hormone 1.4312 uIU/mL (0.35-4.94)
[2021-09-28 12:07] VITALS: BP 174/77; TEMP 97.5
[2021-09-28] MEDS ORDERED: Rivaroxaban 10 MG TAB PO SCH (18:00)
== END 2021-09-28 12:45 | disposition home or self-care (01) | DRG 65 ==
LOC: ERS 13:37 → INTOOBSV 18:26 → NEURO 18:26 → OBSVTOIN 09-27 11:14
PROVIDERS: ADMIT Internal Medicine; ATTEND Internal Medicine
DX: I63.511 Cerebral infarction due to unspecified occlusion or stenosis of right middle cerebral artery (principal); I48.19 Other persistent atrial fibrillation; I50.22 Chronic systolic (congestive) heart failure; Z20.822 Contact with and (suspected) exposure to COVID-19; E78.5 Hyperlipidemia, unspecified; I11.0 Hypertensive heart disease with heart failure; J44.9 Chronic obstructive pulmonary disease, unspecified; Z60.2 Problems related to living alone; K21.9 Gastro-esophageal reflux disease without esophagitis; F10.10 Alcohol abuse, uncomplicated; D64.9 Anemia, unspecified; G83.24 Monoplegia of upper limb affecting left nondominant side; Z88.0 Allergy status to penicillin; Z79.899 Other long term (current) drug therapy; Z87.891 Personal history of nicotine dependence
CPT/HCPCS: 0439T; 36415; 70450; 70551; 71045; 80053; 80061; 80306; 80307; 81003; 83036; 83735; 84439; 84443; 84481; 85025; 93005; 93306; 93880; G0378; U0002